=== PATIENT | male | born 1975 | race Caucasian/White ===

== ENCOUNTER 2018-08-08 13:41 | Inpatient (IN) | payer SELFPAY ==
[~2018-08-08] VITALS: Ht 188 cm; Wt 81.6 kg
[2018-08-08] MEDS ORDERED: NS(*) 0.9% 1000 ML BAG 1,000 ML IV ONE (13:43)
--- NOTE | 2018-08-08 13:51 | ER Report ---
History and Physical Time Seen By MD: 13:49 HPI/ROS CHIEF COMPLAINT: Seizure HISTORY OF PRESENT ILLNESS: 43-year-old male patient presents to emergency room via EMS with complaint of seizure. Patient was at the longterm center today. He was incarcerated, he is unsure as to why he was incarcerated. Patient did have a seizure. His initial seizure he fell and struck his head on the ground. That was approximately 2 hours prior to arrival in the emergency room. Patient then suddenly had a second seizure and was caught this time by longterm center personnel. At that time decided the patient was going to be sent up to the emergency room for further evaluation. Patient does have before meals history of seizures when he is detoxing from alcohol. Patient states last time he had any alcohol was May 15. Patient denies having any pain at this time. REVIEW OF SYSTEMS: Respiratory: No cough, no dyspnea. Cardiovascular: No chest pain, no palpitations. Gastrointestinal: No vomiting, no abdominal pain. Musculoskeletal: No back pain. Allergies: Coded Allergies: Penicillins (Verified Allergy, Unknown, 08/08/18) Home Meds No Active Prescriptions or Reported Meds Past Medical/Surgical History Patient has a past medical history of seizures, racing heart, arthritis, back pain, substance abuse, alcohol abuse, Tourette's. Patient has a surgical procedure of LASIK surgery, wisdom teeth removal. Reviewed Nurses Notes: Yes Hx Smoking: Yes Smoking Status: Current: Every Day Smoker, Heavy Tobacco Smoker Exposure to Second Hand Smoke?: Yes Hx Alcohol Use: Yes Constitutional Vital Sign - Last 24 Hours 08/08/18 08/08/18 08/08/18 08/08/18 13:41 13:44 13:55 14:11 Temp 97.6 Pulse 111 105 105 Resp 14 B/P (MAP) 131/89 (103) 131/89 Pulse Ox 91 O2 Delivery Room Air 08/08/18 08/08/18 08/08/18 08/08/18 14:14 14:17 14:37 14:41 Pulse 109 Resp 17 B/P (MAP) 124/81 (95) 124/88 (100) Pulse Ox 96 O2 Delivery Nasal Cannula O2 Flow Rate 1.5 1 08/08/18 08/08/18 08/08/18 08/08/18 14:46 15:00 15:16 15:21 Pulse 109 108 115 Resp 23 13 B/P (MAP) 123/92 (102) Pulse Ox 96 93 91 08/08/18 08/08/18 15:51 16:00 Pulse 115 Resp 14 B/P (MAP) 122/78 (93) Pulse Ox 87 Physical Exam General Appearance: The patient is alert, has no immediate need for airway protection and no current signs of toxicity. Patient does smell of alcohol. Eyes: Pupils equal and round and injection bilaterally. Respiratory: Chest is non tender, lungs are clear to auscultation. Cardiac: regular rate and rhythm Gastrointestinal: Abdomen is soft and non tender, no masses, bowel sounds normal. Musculoskeletal: Neck: Neck non tender, patient is in a c-collar Extremities have full range of motion and are non tender. Skin: No rashes or lesions. Bruise to the left side of chest, and blood noted on his face, bite varela to the left side of his tongue. DIFFERENTIAL DIAGNOSIS: After history and physical exam differential diagnosis was considered for seizure secondary to alcohol detox, alcohol abuse, withdrawal. Medical Decision Making Data Points Result Diagram: 08/08/18 1338 08/08/18 1338 Laboratory Hematology Test 08/08/18 13:38 Red Blood Count 4.18 M/uL (4.00-5.60) Mean Corpuscular Volume 105.7 fL (80.0-96.0) Mean Corpuscular Hemoglobin 36.4 pg (26.0-33.0) Mean Corpuscular Hemoglobin Concent 34.4 g/dL (32.0-36.0) Red Cell Distribution Width 13.0 % (11.5-14.5) Mean Platelet Volume 9.1 fL (7.2-11.1) Neutrophils (%) (Auto) 56.8 % (39.4-72.5) Lymphocytes (%) (Auto) 22.0 % (17.6-49.6) Monocytes (%) (Auto) 19.1 % (4.1-12.4) Eosinophils (%) (Auto) 0.2 % (0.4-6.7) Basophils (%) (Auto) 1.9 % (0.3-1.4) Nucleated RBC Relative Count (auto) 0.0 /100WBC Neutrophils # (Auto) 5.2 K/uL (2.0-7.4) Lymphocytes # (Auto) 2.0 K/uL (1.3-3.6) Monocytes # (Auto) 1.7 K/uL (0.3-1.0) Eosinophils # (Auto) 0.0 K/uL (0.0-0.5) Basophils # (Auto) 0.2 K/uL (0.0-0.1) Nucleated RBC Absolute Count (auto) 0.00 K/uL Prothrombin Time 15.0 seconds (12.0-14.4) Prothromb Time International Ratio 1.17 Activated Partial Thromboplast Time 34 seconds (23-35) Sodium Level 143 mmol/L (137-145) Potassium Level 3.2 mmol/L (3.5-5.0) Chloride Level 98 mmol/L (98-107) Carbon Dioxide Level 10 mmol/L (22-30) Blood Urea Nitrogen 5 mg/dl (9-21) Creatinine 0.60 mg/dl (0.66-1.25) Glomerular Filtration Rate Calc > 60.0 Random Glucose 163 mg/dl (75-110) Calcium Level 9.3 mg/dl (8.4-10.2) Magnesium Level 1.3 mg/dl (1.7-2.2) Total Bilirubin 3.9 mg/dl (0.2-1.3) Aspartate Amino Transf (AST/SGOT) 194 U/L (0-35) Alanine Aminotransferase (ALT/SGPT) 36 U/L (0-56) Alkaline Phosphatase 182 U/L (0-126) Total Protein 8.4 g/dl (6.3-8.2) Albumin 4.9 g/dl (3.5-5.0) Serum Alcohol 64 mg/dl Chemistry Test 08/08/18 13:38 White Blood Count 9.1 k/uL (4.5-11.0) Red Blood Count 4.18 M/uL (4.00-5.60) Hemoglobin 15.2 g/dL (14.0-18.0) Hematocrit 44.2 % (42.0-52.0) Mean Corpuscular Volume 105.7 fL (80.0-96.0) Mean Corpuscular Hemoglobin 36.4 pg (26.0-33.0) Mean Corpuscular Hemoglobin Concent 34.4 g/dL (32.0-36.0) Red Cell Distribution Width 13.0 % (11.5-14.5) Platelet Count 122 K/uL (150-450) Mean Platelet Volume 9.1 fL (7.2-11.1) Neutrophils (%) (Auto) 56.8 % (39.4-72.5) Lymphocytes (%) (Auto) 22.0 % (17.6-49.6) Monocytes (%) (Auto) 19.1 % (4.1-12.4) Eosinophils (%) (Auto) 0.2 % (0.4-6.7) Basophils (%) (Auto) 1.9 % (0.3-1.4) Nucleated RBC Relative Count (auto) 0.0 /100WBC Neutrophils # (Auto) 5.2 K/uL (2.0-7.4) Lymphocytes # (Auto) 2.0 K/uL (1.3-3.6) Monocytes # (Auto) 1.7 K/uL (0.3-1.0) Eosinophils # (Auto) 0.0 K/uL (0.0-0.5) Basophils # (Auto) 0.2 K/uL (0.0-0.1) Nucleated RBC Absolute Count (auto) 0.00 K/uL Prothrombin Time 15.0 seconds (12.0-14.4) Prothromb Time International Ratio 1.17 Activated Partial Thromboplast Time 34 seconds (23-35) Glomerular Filtration Rate Calc > 60.0 Calcium Level 9.3 mg/dl (8.4-10.2) Magnesium Level 1.3 mg/dl (1.7-2.2) Total Bilirubin 3.9 mg/dl (0.2-1.3) Aspartate Amino Transf (AST/SGOT) 194 U/L (0-35) Alanine Aminotransferase (ALT/SGPT) 36 U/L (0-56) Alkaline Phosphatase 182 U/L (0-126) Total Protein 8.4 g/dl (6.3-8.2) Albumin 4.9 g/dl (3.5-5.0) Serum Alcohol 64 mg/dl Coagulation Test 08/08/18 13:38 Prothrombin Time 15.0 seconds Prothromb Time International Ratio 1.17 Activated Partial Thromboplast Time 34 seconds Toxicology Test 08/08/18 13:38 Serum Alcohol 64 mg/dl EKG/Imaging Imaging EXAMINATION: CT chest with IV contrast CT abdomen with IV contrast CT pelvis with IV contrast HISTORY: Fall with bruising. COMPARISON: None. TECHNIQUE: Axial images were taken through the chest, abdomen and pelvis during injection of nonionic iodinated intravenous contrast. Sagittal and coronal reformatted images are also submitted. CONTRAST: See addendum. One of the following dose optimization techniques was utilized in the performance of this exam: Automated exposure control; adjustment of the mA and/or kV according to the patient's size; or use of an iterative reconstruction technique. Specific details can be referenced in the facility's radiology CT exam operational policy. FINDINGS: CT THORAX: Lungs / pleura: No focal consolidation, pleural effusion, or pneumothorax. Mediastinum / andie: Negative. Heart / pericardium: Negative. Vessels: Negative. Musculoskeletal / Body wall: Mild left convex curvature of the upper thoracic spine and mild right convex curvature of the mid to lower thoracic spine. No acute fracture or dislocation of the thoracic spine. Lymph node assessment: Negative. Lower neck: Negative. CT ABDOMEN AND PELVIS: Liver / biliary: Negative. Pancreas: Negative. Spleen: Negative. Adrenal glands: Negative. Kidneys: Negative. Pelvic structures: Negative. Bowel: The bowel is normal caliber without obvious focal wall thickening. The appendix is normal. Peritoneum / retroperitoneum / mesenteries: Small volume of intraperitoneal free fluid in the pelvis and right side of the abdomen. No intraperitoneal free air. Vessels: Minimal calcified plaque of the abdominal aorta. Musculoskeletal / Body wall: Chronic defects in the posterior elements of L5. No acute fracture or dislocation of the lumbar spine. Small fat-containing left inguinal hernia. Lymph node assessment: Negative. IMPRESSION: There is a small volume of intraperitoneal free fluid in the pelvis and right side of the abdomen. This is of uncertain etiology. No acute fracture or dislocation of the thoracic or lumbar spine. Report Dictated By: Rajat Gonzalez MD at 08/08/2018 3:04 PM Report E-Signed By: Rajat Gonzalez MD at 08/08/2018 3:18 PM EXAMINATION: CT Cervical spine without intravenous contrast HISTORY: Seizures. COMPARISON: None. TECHNIQUE: Axial images were obtained from the skull base through the upper thoracic spine without IV contrast administration. Coronal and sagittal reformatted images were obtained from the axial source data. One of the following dose optimization techniques was utilized in the performance of this exam: Automated exposure control; adjustment of the mA and/or kV according to the patient's size; or use of an iterative reconstruction technique. Specific details can be referenced in the facility's radiology CT exam operational policy. FINDINGS: Alignment: Straightening of the cervical spine. Cranio-cervical junction: Negative. Vertebral bodies: No acute fracture. Posterior elements: No acute fracture. Hardware: None. Disc Spaces: Intervertebral disc heights are maintained. Soft tissues: No significant paraspinal soft tissue swelling. Visualized upper chest: Negative. IMPRESSION: No acute fracture of the cervical spine. Report Dictated By: Rajat Gonzalez MD at 08/08/2018 2:58 PM Report E-Signed By: Rajat Gonzalez MD at 08/08/2018 3:04 PM EXAMINATION: Head CT without intravenous contrast HISTORY: Seizure. COMPARISON: None. TECHNIQUE: Contiguous axial images were obtained from the skull base to the vertex without intravenous contrast. Sagittal and coronal reformatted images are also submitted. One of the following dose optimization techniques was utilized in the performance of this exam: Automated exposure control; adjustment of the mA and/or kV according to the patient's size; or use of an iterative reconstruction technique. Specific details can be referenced in the facility's radiology CT exam operational policy. FINDINGS: Brain and intracranial structures: Mild cerebral volume loss with corresponding sulcal prominence. The ventricles are normal in size.. The basal cisterns are patent. Enlarged perivascular space at the inferior aspect of the left lentiform nucleus. Santiago-white matter differentiation is maintained. No midline shift, acute hemorrhage, acute infarct, or mass. Calvarium / scalp: Negative. No acute fracture. Skull base / visualized face: Negative. Visualized sinuses / orbits: Large mucous retention cyst in the right maxillary sinus. Mild mucosal thickening in the ethmoid air cells. IMPRESSION: No acute intracranial abnormality. Report Dictated By: Rajat Gonzalez MD at 08/08/2018 2:48 PM Report E-Signed By: Rajat Gonzalez MD at 08/08/2018 2:58 PM ED Course/Re-evaluation ED Course Patient is admitted to examine, history and physical were obtained. Differential diagnoses were considered. On examination lungs are clear, heart is regular, abdomen is soft nontender. Patient does have obvious bite gentry to the tip of the tongue on the left side. A CBC, CMP, alcohol level, magnesium level were done which was indicative of slightly low magnesium of 1.3, bilirubin was 3.2, AST was 194, MCV was elevated 105. Patient had a blood alcohol of 64. He did have 2 seizures while he was longterm center. A CT scan of the head and cervical spine were done. Those were above the radiologist as negative. May return back from the CT scan we did note that he had a bruise to the left lower chest and upper abdomen. A CT scan of the chest abdomen and pelvis was done which showed no acute findings. I discussed the case with Dr. Fleming, hospitalist discussed with patient. Patient had verbalized to be willing to admit to the hospital for detox. Due to the seizures I felt this would be better for a medical detox as opposed to admission to behavioral health. Slightly that he will likely need IV medications to help control his detox. Patient verbalized understanding and agreement. Patient did get help to get up to go to the bathroom, during that time he became unsteady and fell back, he is currently that time by the nursing staff. Decision to Disposition Date: Aug 08, 2018 Decision to Disposition Time: 16:11 Depart Departure Latest Vital Signs Vital Signs Date Time Temp Pulse Resp B/P (MAP) Pulse Ox O2 Delivery O2 Flow Rate FiO2 08/08/18 16:00 122/78 (93) 08/08/18 15:51 115 14 87 08/08/18 14:41 Nasal Cannula 1 08/08/18 13:55 97.6 Impression: Primary Impression: Alcohol withdrawal Condition: Condition Unchanged Disposition: Admitted from ER New Scripts No Active Prescriptions or Reported Meds Problem Qualifiers Primary Impression: Alcohol withdrawal Complication of substance-induced condition: uncomplicated Qualified Codes: F10.230 - Alcohol dependence with withdrawal, uncomplicated CORNELIUS HERRERA [facility] Aug 08, 2018 13:51
[2018-08-08 14:00] LABS: PLATELET COUNT, AUTOMATED 122 K/uL (150-450)
[2018-08-08] MEDS ORDERED: DIAZEPAM 50 MG/10 ML MDV IVP ONE ×2 (14:00→15:35)
[2018-08-08 14:31] LABS: INR 1.17
[2018-08-08] MEDS ORDERED: IOPAMIDOL 76% 100 ML INFUS BTL 100 ML ONE (14:31)
--- NOTE | 2018-08-08 15:05 | RADIOLOGY IMAGING REPORT ---
FACILITY: [facility] PATIENT NAME: Oscar Thacker : 1975 MR: [id number] V: [id number] EXAM DATE: ORDERING PHYSICIAN: CORNELIUS HERRERA TECHNOLOGIST: Location: [facility] [place] Patient: Oscar Thacker : 1975 Visit/Account:[id number] Date of Sevice: 08/08/2018 EXAMINATION: Head CT without intravenous contrast HISTORY: Seizure. COMPARISON: None. TECHNIQUE: Contiguous axial images were obtained from the skull base to the vertex without intraven ous contrast. Sagittal and coronal reformatted images are also submitted. One of the following dose optimization techniques was utilized in the performance of this exam: Autom ated exposure control; adjustment of the mA and/or kV according to the patient's size; or use of an i terative reconstruction technique. Specific details can be referenced in the facility's radiology C T exam operational policy. FINDINGS: Brain and intracranial structures: Mild cerebral volume loss with corresponding sulcal prominence. T he ventricles are normal in size.. The basal cisterns are patent. Enlarged perivascular space at the inferior aspect of the left lentiform nucleus. Santiago-white matter differentiation is maintained. No midline shift, acute hemorrhage, acute infarct, or mass. Calvarium / scalp: Negative. No acute fracture. Skull base / visualized face: Negative. Visualized sinuses / orbits: Large mucous retention cyst in the right maxillary sinus. Mild mucosal thickening in the ethmoid air cells. IMPRESSION: No acute intracranial abnormality. Report Dictated By: Rajat Gonzalez MD at 08/08/2018 2:48 PM Report E-Signed By: Rajat Gonzalez MD at 08/08/2018 2:58 PM WSN:[id number]
--- NOTE | 2018-08-08 15:09 | RADIOLOGY IMAGING REPORT ---
FACILITY: [facility] [place] PATIENT NAME: Oscar Thacker : 1975 MR: [id number] V: [id number] EXAM DATE: ORDERING PHYSICIAN: CORNELIUS HERRERA TECHNOLOGIST: Location: [facility] [place] Patient: Oscar Thacker : 1975 Visit/Account:[id number] Date of Sevice: 08/08/2018 EXAMINATION: CT Cervical spine without intravenous contrast HISTORY: Seizures. COMPARISON: None. TECHNIQUE: Axial images were obtained from the skull base through the upper thoracic spine without I V contrast administration. Coronal and sagittal reformatted images were obtained from the axial [facility] e data. One of the following dose optimization techniques was utilized in the performance of this exam: Autom ated exposure control; adjustment of the mA and/or kV according to the patient's size; or use of an i terative reconstruction technique. Specific details can be referenced in the facility's radiology C T exam operational policy. FINDINGS: Alignment: Straightening of the cervical spine. Cranio-cervical junction: Negative. Vertebral bodies: No acute fracture. Posterior elements: No acute fracture. Hardware: None. Disc Spaces: Intervertebral disc heights are maintained. Soft tissues: No significant paraspinal soft tissue swelling. Visualized upper chest: Negative. IMPRESSION: No acute fracture of the cervical spine. Report Dictated By: Rajat Gonzalez MD at 08/08/2018 2:58 PM Report E-Signed By: Rajat Gonzalez MD at 08/08/2018 3:04 PM WSN:[id number]
--- NOTE | 2018-08-08 15:23 | RADIOLOGY IMAGING REPORT ---
FACILITY: [facility] - [place] PATIENT NAME: Oscar Thacker : 1975 MR: [id number] V: [id number] EXAM DATE: ORDERING PHYSICIAN: CORNELIUS HERRERA TECHNOLOGIST: Location: [facility] Patient: Oscar Thacker : 1975 Visit/Account:[id number] Date of Sevice: 08/08/2018 ADDENDUM #1 ADDENDUM: CONTRAST: 75 mL of IV [id number] Report Dictated By: Rajat Gonzalez MD at 08/08/2018 3:28 PM Report E-Signed By: Rajat Gonzalez MD at 08/08/2018 3:28 PM ORIGINAL REPORT EXAMINATION: CT chest with IV contrast CT abdomen with IV contrast CT pelvis with IV contrast HISTORY: Fall with bruising. COMPARISON: None. TECHNIQUE: Axial images were taken through the chest, abdomen and pelvis during injection of nonion ic iodinated intravenous contrast. Sagittal and coronal reformatted images are also submitted. CONTRAST: See addendum. One of the following dose optimization techniques was utilized in the performance of this exam: Autom ated exposure control; adjustment of the mA and/or kV according to the patient's size; or use of an i terative reconstruction technique. Specific details can be referenced in the facility's radiology C T exam operational policy. FINDINGS: CT THORAX: Lungs / pleura: No focal consolidation, pleural effusion, or pneumothorax. Mediastinum / andie: Negative. Heart / pericardium: Negative. Vessels: Negative. Musculoskeletal / Body wall: Mild left convex curvature of the upper thoracic spine and mild right c onvex curvature of the mid to lower thoracic spine. No acute fracture or dislocation of the thoracic spine. Lymph node assessment: Negative. Lower neck: Negative. CT ABDOMEN AND PELVIS: Liver / biliary: Negative. Pancreas: Negative. Spleen: Negative. Adrenal glands: Negative. Kidneys: Negative. Pelvic structures: Negative. Bowel: The bowel is normal caliber without obvious focal wall thickening. The appendix is normal. Peritoneum / retroperitoneum / mesenteries: Small volume of intraperitoneal free fluid in the pelvis and right side of the abdomen. No intraperitoneal free air. Vessels: Minimal calcified plaque of the abdominal aorta. Musculoskeletal / Body wall: Chronic defects in the posterior elements of L5. No acute fracture or di slocation of the lumbar spine. Small fat-containing left inguinal hernia. Lymph node assessment: Negative. IMPRESSION: There is a small volume of intraperitoneal free fluid in the pelvis and right side of the abdomen. Th is is of uncertain etiology. No acute fracture or dislocation of the thoracic or lumbar spine. Report Dictated By: Rajat Gonzalez MD at 08/08/2018 3:04 PM Report E-Signed By: Rajat Gonzalez MD at 08/08/2018 3:18 PM WSN:[id number]
[2018-08-08] MEDS ORDERED: ONDANSETRON 4 MG/2 ML VIAL IVP ONE (15:25)
[2018-08-08] MEDS ORDERED: NAPROXEN 500 MG TAB PO PRN (15:55)
[2018-08-08] MEDS ORDERED: INFLUENZA VIRUS VAC 0.5ML SYR IM ONLY ONE (15:55)
[2018-08-08] MEDS ORDERED: CALCIUM CARBONATE 500 MG CHEW PO PRN (15:55)
[2018-08-08] MEDS ORDERED: LORazepam 2 MG/ML VIAL IVP PRN (15:55)
--- NOTE | 2018-08-08 16:28 | History & Physical ---
History of Present Illness History of Present Illness 43yo male with a h/o alcohol abuse and alcohol withdrawal seizures who [facility] after 2 seizures. The history is from the ER provider and some from the patient, but his memory is limited. He doesn't know when his last drink occurred or why he was in the prison center. He had a seizure, fell and hit his head 2 hours prior to going to the ER. He then had another seizure but was caught by staff. He brought to the ER. He reports drinking half a bottle of vodka a day. He has been drinking since May. He was sober from the Fall of 2017 until then. He denies any other drug use. He reports a seizure about a week ago when he was trying to cut back on drinking. In the ER, he received 1 liter of NS, 15mg of Valium IV, and Zofran. History Problems: (1) Alcohol related seizure Status: Acute (2) Alcohol abuse Status: Acute Home Meds No Active Prescriptions or Reported Meds Allergies: Coded Allergies: Penicillins (Verified Allergy, Unknown, 08/08/18) Patient History: FHx: alcoholism FATHER BROTHER OR SISTER History of Sotero de la Tourette's syndrome BROTHER OR SISTER Other Social/Family Hx He denies illicit drug use. He smokes a pack a day for 4-5 years. Hx Smoking: Yes Smoking Status: Current: Every Day Smoker, Heavy Tobacco Smoker Exposure to Second Hand Smoke?: Yes Caffeine/Cups Per Day: Reports no caffeine use Hx Alcohol Use: Yes Hx Substance Use Disorder: Yes Social Drug Use: Former Social Drugs: Marijuana, Meth, Cocaine Amount Of Social Drug/s Used: Any time he could Review of Systems All Systems Reviewed/Normal: Yes, Except as Noted Exam Vital Signs Vital Signs Date Time Temp Pulse Resp B/P (MAP) Pulse Ox O2 Delivery O2 Flow Rate FiO2 08/08/18 15:16 108 93 08/08/18 15:00 123/92 (102) 08/08/18 14:46 23 08/08/18 14:41 Nasal Cannula 1 08/08/18 13:55 97.6 General Appearance: Alert, Awake, Other (Tremulous, anxious appearing. No injuries to scalp/head on exam and palpation) Neuro: Other (Knows where he is, but not the details of why) ENT: Moist Mucous Membranes (Tongue with abrasions bilaterally on edges. R buccal mucous membrane with evidence of small injury) Cardiovascular: Other (Tachy, reg, no m/r/g) Respiratory: Clear to Auscultation GI: Abd Soft and Non-Tender (Liver edge about 3 cm below costal chondral margin on mid clavicular line) Extremities: Warm, Pulses; No Edema Integumentary: No Jaundice, No Cyanosis Medical Decision Making Data Points Result Diagram: 08/08/18 1338 08/08/18 1338 Item Value Date Time Mean Corpuscular Volume 105.7 fL H 08/08/18 1338 Neutrophils (%) (Auto) 56.8 % 08/08/18 1338 Lymphocytes (%) (Auto) 22.0 % 08/08/18 1338 Monocytes (%) (Auto) 19.1 % H 08/08/18 1338 Eosinophils (%) (Auto) 0.2 % L 08/08/18 1338 Basophils (%) (Auto) 1.9 % H 08/08/18 1338 Magnesium Level 1.3 mg/dl L 08/08/18 1338 Total Bilirubin 3.9 mg/dl H 08/08/18 1338 Aspartate Amino Transf (AST/SGOT) 194 U/L H 08/08/18 1338 Alanine Aminotransferase (ALT/SGPT) 36 U/L 08/08/18 1338 Alkaline Phosphatase 182 U/L H 08/08/18 1338 Prothromb Time International Ratio 1.17 08/08/18 1338 Serum Alcohol 64 mg/dl 08/08/18 1338 EKG / Imaging Imaging Chest/Abd/Pelvis CT - There is a small volume of intraperitoneal free fluid in the pelvis and right side of the abdomen. This is of uncertain etiology. No acute fracture or dislocation of the thoracic or lumbar spine. C spine CT - No acute fracture of the cervical spine. Head CT - No acute intracranial abnormality. Assessment and Plan Problems: (1) Alcohol withdrawal Status: Acute Assessment & Plan: He presented to the ER after 2 seizure at the prison center. It is unknown when he consumed his last drink of alcohol. LFT's are elevated. INR is wnl. MCV elevated. He will followed with CIWA protocol and given Valium to cover. He will get a banana bag and then be started on thiamine and folate. Seizure precautions to be implemented. Ammonia level tomorrow. (2) Alcohol related seizure Status: Acute Assessment & Plan: See above. He has had alcohol related seizures in the past. He had one while trying to cut back a week ago. CT's of head and neck without obvious injury. No worrisome symptoms or on exam. (3) Hypokalemia Status: Acute Assessment & Plan: Secondary to alcohol use. It will be replaced IV. Mg wnl, but will follow. Venous Thromboembolism Antithrombotics Is Pt On Any Antithrombotics?: No Exam Sepsis Risk: No Definite Risk Problem Qualifiers (1) Alcohol withdrawal: Complication of substance-induced condition: uncomplicated Qualified Codes: F10.230 - Alcohol dependence with withdrawal, uncomplicated SUNDEEP HONG MD Aug 08, 2018 16:28
[2018-08-08 16:47] VITALS: BP 124/88
[2018-08-08] MEDS: DIAZEPAM 10 MG TAB PO PRN ×6 (16:53→23:07)
[2018-08-08] MEDS: KCL (*) 20 MEQ/100 ML PREMIX 100 ML IV SCH ×2 (16:54→18:59)
[2018-08-08] MEDS ORDERED: THIAMINE HCL(*) 200 MG/2 ML IN 100 MG, FOLIC ACID(*) 50 MG/10 ML INJ 1 MG, MULTIVITAMIN... IV ONE (17:00)
[2018-08-08 20:04] VITALS: BP 114/75
[2018-08-08 23:50] VITALS: BP 107/63
[2018-08-09] MEDS: DIAZEPAM 10 MG TAB PO PRN ×19 (00:06→22:55)
[2018-08-09 04:12] VITALS: BP 125/83
[2018-08-09] MEDS: KCL/D1/2NS 20 MEQ 1000 ML 1,000 ML IV SCH (04:22)
[2018-08-09 06:27] LABS: PLATELET COUNT, AUTOMATED 74 K/uL (150-450)
[2018-08-09 07:16] VITALS: BP 128/87
[2018-08-09] MEDS ORDERED: MAGNESIUM SULF 4 GM/50 ML BAG 50 ML IVPB ONE (08:00)
[2018-08-09 08:30] VITALS: BP 125/85
[2018-08-09] MEDS ORDERED: NS(*) 0.9% 500 ML BAG 500 ML ONE (08:58)
[2018-08-09] MEDS: THIAMINE HCL 100 MG TAB PO SCH (09:02)
[2018-08-09] MEDS: PANTOPRAZOLE SOD 40 MG TABEC PO SCH (09:02)
[2018-08-09] MEDS: FOLIC ACID 1 MG TAB PO SCH (09:03)
[2018-08-09] MEDS: ENOXAPARIN 40 MG/0.4ML SYR SC SCH (09:03)
--- NOTE | 2018-08-09 10:58 | Hospitalist Progress Note ---
Subjective Progress Notes Subjective He was admitted with alcohol withdraw and seizures. He is only oriented to self. Physical Exam Vital Signs Date Time Temp Pulse Resp B/P (MAP) Pulse Ox O2 Delivery O2 Flow Rate FiO2 08/09/18 09:05 90 08/09/18 08:30 98.0 93 20 125/85 (98) Room Air 08/08/18 14:41 1 Intake and Output 08/09/18 01:01 Intake Total 600 ml Balance 600 ml Intake Oral 600 ml # Voids 2 General Appearance: Awake Neuro: Other (unable to ambulate to commode) Cardiovascular: Regular Rate and Rhythm Respiratory: No Respiratory Distress, Clear to Auscultation Psych: Other (oriented to only self) Result Diagram: 08/09/1860708/09/18607 Assessment and Plan Problems: (1) Alcohol withdrawal Status: Acute Assessment & Plan: He presented to the ER after [facility] seizure [facility]. It is unknown when he consumed his last drink of alcohol. LFT's are elevated. INR is wnl. MCV elevated. He will followed with CIWA protocol and given Valium to cover. He received a banana bag and then was started on thiamine and folate. Seizure precautions implemented. Ammonia level WNL. (2) Alcohol related seizure Status: Acute Assessment & Plan: See above. He has had alcohol related seizures in the past. He had one while trying to cut back a week ago. CT's of head and neck without obvious injury. No worrisome symptoms or on exam. (3) Hypokalemia Status: Acute Assessment & Plan: Secondary to alcohol use. It will be replaced IV. (4) Hypomagnesemia Status: Acute Assessment & Plan: Secondary to alcohol use. He will receive IV replacement. Exam Sepsis Risk: No Definite Risk Problem Qualifiers (1) Alcohol withdrawal: Complication of substance-induced condition: uncomplicated Qualified Codes: F10.230 - Alcohol dependence with withdrawal, uncomplicated SANTI EDWARD UMBRELLA FINISHER Aug 09, 2018 10:58
[2018-08-09] MEDS: KCL (*) 20 MEQ/100 ML PREMIX 100 ML IV SCH ×2 (11:07→13:44)
[2018-08-09 11:29] VITALS: Ht 188 cm; Wt 81.6 kg
[2018-08-09 12:14] VITALS: BP 122/95
[2018-08-09 13:42] VITALS: BP 136/105
[2018-08-09 18:37] VITALS: BP 104/80
[2018-08-10] VITALS (8 sets, daily range): BP systolic 106–130; BP diastolic 83–97
[2018-08-10] MEDS: DIAZEPAM 10 MG TAB PO PRN ×10 (00:16→21:54)
[2018-08-10] MEDS: KCL/D1/2NS 20 MEQ 1000 ML 1,000 ML IV SCH ×2 (00:20→14:47)
[2018-08-10 05:45] LABS: PLATELET COUNT, AUTOMATED 73 K/uL (150-450)
[2018-08-10] MEDS: PANTOPRAZOLE SOD 40 MG TABEC PO SCH (09:55)
[2018-08-10] MEDS: ENOXAPARIN 40 MG/0.4ML SYR SC SCH (09:55)
[2018-08-10] MEDS: THIAMINE HCL 100 MG TAB PO SCH (09:55)
[2018-08-10] MEDS: FOLIC ACID 1 MG TAB PO SCH (09:55)
--- NOTE | 2018-08-10 12:11 | Hospitalist Progress Note ---
Subjective Progress Notes Subjective He was admitted with alcohol withdraw. He is still actively withdrawing requiring Valium. He is oriented to only himself again this morning. Physical Exam Vital Signs Date Time Temp Pulse Resp B/P (MAP) Pulse Ox O2 Delivery O2 Flow Rate FiO2 08/10/18 11:39 97.8 93 16 106/86 (93) 96 Room Air 08/08/18 14:41 1 Intake and Output 08/10/18 01:01 Intake Total 150 ml Balance 150 ml IV Total 150 ml # Voids 6 General Appearance: Other (resting with eyes shut) Cardiovascular: Regular Rate and Rhythm Respiratory: No Respiratory Distress, Clear to Auscultation GI: Soft and Non-Tender Extremities: Warm, Perfused; No Edema Psych: Other (mumbling throughout exam) Result Diagram: 08/10/1853008/10/18530 Assessment and Plan Problems: (1) Alcohol withdrawal Status: Acute Assessment & Plan: He presented to the ER [facility] It is unknown when he consumed his last drink of alcohol. LFT's are elevated. INR is wnl. MCV elevated. He will followed with CIWA protocol and given Valium to cover. He received a banana bag and then was started on thiamine and folate. Seizure precautions implemented. Ammonia level WNL. (2) Alcohol related seizure Status: Acute Assessment & Plan: See above. He has had alcohol related seizures in the past. He had one while trying to cut back a week ago. CT's of head and neck without obvious injury. No worrisome symptoms or on exam. (3) Hypokalemia Status: Acute Assessment & Plan: Secondary to alcohol use. It was replaced IV. (4) Hypomagnesemia Status: Acute Assessment & Plan: Secondary to alcohol use. He received IV replacement. Exam Sepsis Risk: No Definite Risk Problem Qualifiers (1) Alcohol withdrawal: Complication of substance-induced condition: uncomplicated Qualified Codes: F10.230 - Alcohol dependence with withdrawal, uncomplicated SANTI EDWARD JAVA DEVELOPER Aug 10, 2018 12:11
[2018-08-11] VITALS (10 sets, daily range): BP systolic 102–127; BP diastolic 73–101
[2018-08-11] MEDS: DIAZEPAM 10 MG TAB PO PRN ×12 (02:16→18:53)
[2018-08-11] MEDS: KCL/D1/2NS 20 MEQ 1000 ML 1,000 ML IV SCH ×2 (04:21→20:13)
[2018-08-11 06:59] LABS: PLATELET COUNT, AUTOMATED 80 K/uL (150-450)
[2018-08-11] MEDS: FOLIC ACID 1 MG TAB PO SCH (08:23)
[2018-08-11] MEDS: THIAMINE HCL 100 MG TAB PO SCH (08:23)
[2018-08-11] MEDS: PANTOPRAZOLE SOD 40 MG TABEC PO SCH (08:23)
[2018-08-11] MEDS ORDERED: MAGNESIUM SUL* 2 GM/50 ML IVPB 50 ML IVPB ONE (09:30)
[2018-08-11] MEDS: ENOXAPARIN 40 MG/0.4ML SYR SC SCH (10:07)
--- NOTE | 2018-08-11 11:28 | Hospitalist Progress Note ---
Subjective Progress Notes Subjective He was admitted with alcohol withdraw. He is still only oriented to self. Physical Exam Vital Signs Date Time Temp Pulse Resp B/P (MAP) Pulse Ox O2 Delivery O2 Flow Rate FiO2 08/11/18 11:03 97.9 102 16 102/73 (83) 94 Room Air 08/08/18 14:41 1 Intake and Output 08/11/18 07:01 Intake Total 1075 ml Balance 1075 ml IV Total 1075 ml # Voids 11 General Appearance: Awake Cardiovascular: Regular Rate and Rhythm Respiratory: No Respiratory Distress, Clear to Auscultation Extremities: Warm, Perfused; No Edema Psych: Other (oriented to self) Result Diagram: 08/11/18 0550 08/11/18 0550 Assessment and Plan Problems: (1) Alcohol withdrawal Status: Acute Assessment & Plan: [facility] It is unknown when he consumed his last drink of alcohol. LFT's are elevated. INR is wnl. MCV elevated. He will followed with CIWA protocol and given Valium to cover. He received a banana bag and then was started on thiamine and folate. Seizure precautions implemented. Ammonia level WNL. Bili continued to increase. Will continue to monitor. (2) Alcohol related seizure Status: Acute Assessment & Plan: See above. He has had alcohol related seizures in the past. He had one while trying to cut back a week ago. CT's of head and neck without obvious injury. No worrisome symptoms or on exam. (3) Hypokalemia Status: Acute Assessment & Plan: Secondary to alcohol use. It was replaced IV. (4) Hypomagnesemia Status: Acute Assessment & Plan: Secondary to alcohol use. He received IV replacement. Exam Sepsis Risk: No Definite Risk Problem Qualifiers (1) Alcohol withdrawal: Complication of substance-induced condition: uncomplicated Qualified Codes: F10.230 - Alcohol dependence with withdrawal, uncomplicated SANTI EDWARD AED TRAINER Aug 11, 2018 11:28
[2018-08-11] MEDS: NICOTINE INH SYSTEM 10 MG/INH INH PRN ×2 (17:41→18:34)
[2018-08-12] VITALS (7 sets, daily range): BP systolic 104–117; BP diastolic 60–89
[2018-08-12] MEDS: DIAZEPAM 10 MG TAB PO PRN ×2 (02:46→10:45)
[2018-08-12] MEDS ORDERED: ESOM40CA42 PO (03:22)
[2018-08-12] MEDS ORDERED: FLUO-177 PO (03:22)
[2018-08-12] MEDS ORDERED: OXCA300T59 PO (03:22)
[2018-08-12] MEDS ORDERED: DIAZ-311 PO (03:22)
[2018-08-12] MEDS ORDERED: LAMO100T5 PO (03:22)
[2018-08-12] MEDS ORDERED: BACL-51 PO (03:22)
[2018-08-12 05:30] LABS: PLATELET COUNT, AUTOMATED 112 K/uL (150-450)
[2018-08-12 05:49] LABS: INR 1.1
[2018-08-12] MEDS: PANTOPRAZOLE SOD 40 MG TABEC PO SCH (09:02)
[2018-08-12] MEDS: FOLIC ACID 1 MG TAB PO SCH (09:02)
[2018-08-12] MEDS: ENOXAPARIN 40 MG/0.4ML SYR SC SCH (09:02)
[2018-08-12] MEDS: THIAMINE HCL 100 MG TAB PO SCH (09:02)
[2018-08-12] MEDS: NICOTINE INH SYSTEM 10 MG/INH INH PRN (10:36)
[2018-08-12] MEDS: KCL/D1/2NS 20 MEQ 1000 ML 1,000 ML IV SCH (11:37)
[2018-08-12] MEDS ORDERED: MAGNESIUM SUL* 2 GM/50 ML IVPB 50 ML IVPB ONE (13:10)
--- NOTE | 2018-08-12 17:18 | Hospitalist Progress Note ---
Subjective Progress Notes Subjective The patient denies new complaints. Physical Exam Vital Signs Date Time Temp Pulse Resp B/P (MAP) Pulse Ox O2 Delivery O2 Flow Rate FiO2 08/12/18 16:32 97.7 92 14 110/78 (89) 96 Room Air 08/08/18 14:41 1 Intake and Output 08/12/18 07:01 Intake Total 1330 ml Output Total 1075 ml Balance 255 ml Intake Oral 280 ml IV Total 1050 ml Output Urine Total 1050 ml Post Void Residual 25 ml Bladder Scan Volume Amount 11-30 ml # Voids 2 General Appearance: Alert, Awake, No Acute Distress Neuro: Other (A bit confused at times.) Eyes: PERRLA Cardiovascular: Regular Rate and Rhythm Respiratory: Clear to Auscultation GI: Soft and Non-Tender Extremities: Warm, Perfused Psych: Other (Confused at times.) Result Diagram: 08/12/1851708/12/18517 Assessment and Plan Problems: (1) Alcohol withdrawal Status: Acute Assessment & Plan: He presented to the ER after 2 seizure at the [facility]. It is unknown when he consumed his last drink of alcohol. LFT's are elevated but improving. INR is wnl. MCV elevated. He will followed with CIWA protocol and given Valium to cover. He received a banana bag and then was started on thiamine and folate. Seizure precautions implemented. Ammonia level WNL. Bili starting to decrease. Will continue to monitor. (2) Alcohol related seizure Status: Acute Assessment & Plan: See above. He has had alcohol related seizures in the past. He had one while trying to cut back a week ago. CT's of head and neck without obvious injury. No worrisome symptoms or on exam. (3) Hypokalemia Status: Acute Assessment & Plan: Secondary to alcohol use. Replace as needed. (4) Hypomagnesemia Status: Acute Assessment & Plan: Secondary to alcohol use. Replace as needed. Time Spent on Plan of Care: < 30 min Exam Sepsis Risk: No Definite Risk Problem Qualifiers (1) Alcohol withdrawal: Complication of substance-induced condition: uncomplicated Qualified Codes: F10.230 - Alcohol dependence with withdrawal, uncomplicated BEHZAD MICHELLE MD Aug 12, 2018 17:18
[2018-08-13] MEDS: KCL/D1/2NS 20 MEQ 1000 ML 1,000 ML IV SCH ×2 (00:56→19:38)
[2018-08-13 05:55] LABS: PLATELET COUNT, AUTOMATED 144 K/uL (150-450)
[2018-08-13 07:50] VITALS: BP 113/83
[2018-08-13] MEDS: DIAZEPAM 10 MG TAB PO PRN ×2 (08:29→21:07)
[2018-08-13] MEDS: ENOXAPARIN 40 MG/0.4ML SYR SC SCH (08:29)
[2018-08-13] MEDS: FOLIC ACID 1 MG TAB PO SCH (08:29)
[2018-08-13] MEDS: THIAMINE HCL 100 MG TAB PO SCH (08:29)
[2018-08-13] MEDS: PANTOPRAZOLE SOD 40 MG TABEC PO SCH (08:29)
[2018-08-13] MEDS ORDERED: MAGNESIUM SUL* 2 GM/50 ML IVPB 50 ML IVPB ONE (10:30)
[2018-08-13 12:05] VITALS: BP 96/60
--- NOTE | 2018-08-13 15:41 | Hospitalist Progress Note ---
Subjective Progress Notes Subjective JACKIE overnight, still scoring on CIWA to need medications. Patient Complains of: Respiratory: No: Cough Gastrointestinal: No Nausea, No Vomiting Physical Exam Vital Signs Date Time Temp Pulse Resp B/P (MAP) Pulse Ox O2 Delivery O2 Flow Rate FiO2 08/13/18 12:05 98.0 92 16 96/60 (72) 95 Room Air Intake and Output 08/13/18 07:02 Intake Total 3595 ml Output Total 1170 ml Balance 2425 ml Intake Oral 1570 ml IV Total 2025 ml Output Urine Total 1170 ml Bladder Scan Volume Amount 11-30 ml # Voids 1 General Appearance: Awake, No Acute Distress Neuro: No Gross deficits Cardiovascular: Normal Rhythm & Peripheral Pulses Respiratory: No Respiratory Distress Integumentary: Skin Intact without Lesion / Mass Psych: Other (slowed mentation (Rx vs previous TBI)) Result Diagram: 08/13/1853608/13/18536 Assessment and Plan Problems: (1) Alcohol withdrawal Status: Acute Assessment & Plan: He presented to the ER after 2 [facility]. It is unknown when he consumed his last drink of alcohol. LFT's are elevated but improving. INR is wnl. MCV elevated. He will followed with CIWA protocol and given Valium to cover. He received a banana bag and then was started on thiamine and folate. Seizure precautions implemented. Ammonia level WNL. Bili starting to decrease. Will continue to monitor, discussed with S. (2) Alcohol related seizure Status: Acute Assessment & Plan: See above. He has had alcohol related seizures in the past. He had one while trying to cut back a week ago. CT's of head and neck without obvious injury. No worrisome symptoms or on exam. (3) Hypokalemia Status: Acute Assessment & Plan: Secondary to alcohol use. Replace as needed. (4) Hypomagnesemia Status: Acute Assessment & Plan: Secondary to alcohol use. Replace as needed. Exam Sepsis Risk: No Definite Risk Problem Qualifiers (1) Alcohol withdrawal: Complication of substance-induced condition: uncomplicated Qualified Codes: F10.230 - Alcohol dependence with withdrawal, uncomplicated TRAMAINE RIOS DO Aug 13, 2018 15:41
[2018-08-13 15:56] VITALS: BP 123/72
[2018-08-13 19:28] VITALS: BP 113/81
[2018-08-13 22:00] VITALS: BP 113/80
[2018-08-14 05:00] VITALS: BP 107/74
[2018-08-14 07:25] VITALS: BP 100/66
[2018-08-14] MEDS: PANTOPRAZOLE SOD 40 MG TABEC PO SCH (08:21)
[2018-08-14] MEDS: FOLIC ACID 1 MG TAB PO SCH (08:21)
[2018-08-14] MEDS: THIAMINE HCL 100 MG TAB PO SCH (08:21)
[2018-08-14] MEDS: ENOXAPARIN 40 MG/0.4ML SYR SC SCH (08:22)
--- NOTE | 2018-08-14 10:40 | Hospitalist Progress Note ---
Subjective Progress Notes Subjective He was admitted with alcohol withdraw. He had no acute events overnight. Patient Complains of: Cardiovascular: No: Chest Pain Respiratory: No: Shortness of Breath Physical Exam Vital Signs Date Time Temp Pulse Resp B/P (MAP) Pulse Ox O2 Delivery O2 Flow Rate FiO2 08/14/18 10:05 96 Room Air 08/14/18 07:25 98.1 103 16 100/66 (77) Intake and Output 08/14/18 01:02 Intake Total 500 ml Output Total 300 ml Balance 200 ml Intake Oral 500 ml Output Urine Total 300 ml Bladder Scan Volume Amount 11-30 ml # Voids 4 # Bowel Movements 1 General Appearance: Alert, Awake, No Acute Distress, Afebrile Neuro: Other (weakness ntoed to bilateral lower extremities) Cardiovascular: Regular Rate and Rhythm Respiratory: No Respiratory Distress, Clear to Auscultation Extremities: Warm, Perfused; No Edema Integumentary: Jaundice Psych: Alert & Oriented X3, Appropriate Mood & Affect Result Diagram: 08/13/1837 08/14/18 0531 Assessment and Plan Problems: (1) Alcohol withdrawal Status: Acute Assessment & Plan: [facility] It is unknown when he consumed his last drink of alcohol. LFT's are elevated but improving. INR is wnl. MCV elevated. He will be followed with CIWA protocol and given Valium to cover. He received a banana bag and then was started on thiamine and folate. Seizure precautions implemented. Ammonia level WNL. Bili starting to decrease. Will continue to monitor, discussed with S. (2) Alcohol related seizure Status: Acute Assessment & Plan: See above. He has had alcohol related seizures in the past. He had one while trying to cut back a week ago. CT's of head and neck without obvious injury. No worrisome symptoms or on exam. (3) Hypokalemia Status: Acute Assessment & Plan: Secondary to alcohol use. Replace as needed. (4) Hypomagnesemia Status: Acute Assessment & Plan: Secondary to alcohol use. Replace as needed. Exam Sepsis Risk: No Definite Risk Problem Qualifiers (1) Alcohol withdrawal: Complication of substance-induced condition: uncomplicated Qualified Codes: F10.230 - Alcohol dependence with withdrawal, uncomplicated SANTI EDWARD [facility] Aug 14, 2018 10:40
[2018-08-14 12:19] VITALS: BP 99/71
--- NOTE | 2018-08-14 15:16 | Medical Nutrition Therapy ---
Nutrition Anthropometrics Height (Inches): 74.00 Height (Calculated Centimeters: 187.472337 Weight (Pounds): 180 Weight (Calculated Kilograms): 81.647 BMI: 23.1 Wesley Nutrition Score: Probably Inadequate Wesley Nutrition Risk Score: 14 Dietary Referral Nutrition Risk Factors: Nutrition Risk Comment: Nutritional Diagnosis Nutritional Risk Acuity 2: Pr Appetite > 3d Nutritional Risk Acuity 3: Alcohol abuse Past Medical History: Denies any medical hx however has hx of alcohol abuse. Nutritional Acuity: 3-Mild Nutrition Diagnosis: Inadequate Food Intake Nutrition Etiology: Psychological Issues Nutrition Problem/Etiology/Sym: AEB intake averaging 25% /5 days with many refused meals. Energy Requirement: 2300 (MSJ) Additional Diet Restrictions: OFFER NUTR SUPPLMENT Nutrition Monitoring & Eval Nutrition Goals: Eat 75-100% Meal Nutrition Follow-Up: Poor Intake RD Patient Assessment Time: [address] Assessment Type: RD Assessment Patient Nutrition Acuity: 2-Moderate Follow Up Date: Aug 19, 2018 Nutritional Comment: 08/14 Pt admitted with alcohol detox and seizures Intake averge 25% past 5 days with many refused meals. Pt has jaundice and elevated bilirubin which can have side affect of appetite. Will offer nutr supplement to encourage intake. hallie frederick to monitor. SATISH AHMADI Aug 14, 2018 15:15
[2018-08-14 16:05] VITALS: BP 101/83
[2018-08-14 21:13] VITALS: BP 102/64
[2018-08-14 23:24] VITALS: BP 92/59
[2018-08-15 03:21] VITALS: BP 130/90
[2018-08-15 07:03] VITALS: BP 111/94
[2018-08-15] MEDS: NICOTINE INH SYSTEM 10 MG/INH INH PRN (07:15)
[2018-08-15 08:43] LABS: PLATELET COUNT, AUTOMATED 210 K/uL (150-450)
[2018-08-15] MEDS: FOLIC ACID 1 MG TAB PO SCH (08:51)
[2018-08-15] MEDS: PANTOPRAZOLE SOD 40 MG TABEC PO SCH (08:51)
[2018-08-15] MEDS: THIAMINE HCL 100 MG TAB PO SCH (08:51)
[2018-08-15] MEDS: ENOXAPARIN 40 MG/0.4ML SYR SC SCH (08:52)
[2018-08-15] MEDS ORDERED: HYPROMELLOSE 0.4% LUB 15ML BTL OU PRN (10:20)
--- NOTE | 2018-08-15 11:38 | Hospitalist Progress Note ---
Subjective Progress Notes Subjective Nursing staff reports improvement in withdraw symptoms. However, there are concerns about his weakness to the left side of his body. Patient Complains of: Cardiovascular: No: Chest Pain Respiratory: No: Shortness of Breath Physical Exam Vital Signs Date Time Temp Pulse Resp B/P (MAP) Pulse Ox O2 Delivery O2 Flow Rate FiO2 08/15/18 07:49 93 08/15/18 07:23 93 Room Air 08/15/18 07:03 98.2 20 111/94 (100) Intake and Output 08/15/18 01:02 Intake Total 300 ml Output Total 950 ml Balance -650 ml Intake Oral 300 ml Output Urine Total 950 ml # Voids 4 General Appearance: Alert, Awake, No Acute Distress, Afebrile Neuro: Other (bilateral weakness to upper and lower extremities) Cardiovascular: Regular Rate and Rhythm Respiratory: No Respiratory Distress, Clear to Auscultation GI: Soft and Non-Tender Extremities: Warm, Perfused; No Edema Psych: Appropriate Mood & Affect Result Diagram: 08/15/1834 08/15/1834 Assessment and Plan Problems: (1) Weakness Status: Acute Assessment & Plan: He has been working with therapy. He does have left leg weakness, which is causing difficulty with ambulation. He will get MRI of his brain today. (2) Alcohol withdrawal Status: Acute Assessment & Plan: He presented to the ER after 2 seizure at the [facility]. It is unknown when he consumed his last drink of alcohol. LFT's are elevated but improving. INR is wnl. MCV elevated. He will be followed with CIWA protocol and given Valium to cover. He received a banana bag and then was started on thiamine and folate. Seizure precautions implemented. Ammonia level WNL. Bili starting to decrease. Will continue to monitor, discussed with S. He denies any help for alcohol cessation at this time. He also will get speech evaluation to assess mental status. (3) Alcohol related seizure Status: Acute Assessment & Plan: See above. He has had alcohol related seizures in the past. He had one while trying to cut back a week ago. CT's of head and neck without obvious injury. No worrisome symptoms or on exam. (4) Hypokalemia Status: Acute Assessment & Plan: Secondary to alcohol use. Replace as needed. (5) Hypomagnesemia Status: Acute Assessment & Plan: Secondary to alcohol use. Replace as needed. Exam Sepsis Risk: No Definite Risk Problem Qualifiers (1) Alcohol withdrawal: Complication of substance-induced condition: uncomplicated Qualified Codes: F10.230 - Alcohol dependence with withdrawal, uncomplicated SANTI EDWARDP Aug 15, 2018 11:38
--- NOTE | 2018-08-15 15:29 | RADIOLOGY IMAGING REPORT ---
FACILITY: [facility] PATIENT NAME: Oscar Thacker : 1975 MR: [id number] V: [id number] EXAM DATE: ORDERING PHYSICIAN: SANTI EDWARD TECHNOLOGIST: Location: [facility] Patient: Oscar Thacker : 1975 Visit/Account:[id number] Date of Sevice: 08/15/2018 Exam type: ORBITS History: Pre-MRI screening Comparison: None. Findings: No radiopaque metallic foreign bodies project over the orbits IMPRESSION: 1. No radiopaque metallic foreign bodies project over the orbits Report Dictated By: Lucero Verdin MD at 08/15/2018 3:21 PM Report E-Signed By: Lucero Verdin MD at 08/15/2018 3:22 PM [id number]:[email or web address]
--- NOTE | 2018-08-15 16:30 | RADIOLOGY IMAGING REPORT ---
[place] [facility] NAME: Oscar Thacker : 1975 MR: [id number] V: [id number] EXAM DATE: ORDERING PHYSICIAN: SANTI EDWARD TECHNOLOGIST: Location: [facility] Patient: Oscar Thacker : 1975 Visit/Account:[id number] Date of Sevice: 08/15/2018 Examination: MR brain without contrast History: Altered mental status, alcohol withdrawal, seizure Comparison: August 08, [address] Technique: Multiplane MR imaging was performed through the brain without contrast. Findings: Diffusion: None Ventricles: Normal Midline shift: None Extraaxial fluid: None. Midline craniocervical structures: Normal Parenchyma: Benign perivascular space in the left basal ganglia measures 1.3 cm. Mild parenchymal atr ophy. A few scattered punctate white matter high signal foci. Vascular flow voids: Normal Orbits and paranasal sinuses: Right maxillary sinus 2.8 cm mucous retention cyst. Other: No significant additional finding. Impression: 1. No acute finding. 2. Mild parenchymal atrophy. 3. A few punctate white matter high signal foci of doubtful clinical significance. 4. 1.3 cm left basal ganglia perivascular space. 5. Otherwise unremarkable brain MR. Report Dictated By: Robert Concepcion MD at 08/15/2018 4:19 PM Report E-Signed By: Robert Concepcion MD at 08/15/2018 4:24 PM WSN:[email or web address]
[2018-08-15 16:35] VITALS: BP 103/80
[2018-08-15 19:25] VITALS: BP 125/85
[2018-08-16 07:03] VITALS: BP 117/76
[2018-08-16] MEDS: ENOXAPARIN 40 MG/0.4ML SYR SC SCH (08:33)
[2018-08-16] MEDS: FOLIC ACID 1 MG TAB PO SCH (08:33)
[2018-08-16] MEDS: PANTOPRAZOLE SOD 40 MG TABEC PO SCH (08:33)
[2018-08-16] MEDS: THIAMINE HCL 100 MG TAB PO SCH (08:33)
--- NOTE | 2018-08-16 16:04 | Hospitalist Progress Note ---
Subjective Progress Notes Subjective Staff reporting that he has poor balance. Physical Exam Vital Signs Date Time Temp Pulse Resp B/P (MAP) Pulse Ox O2 Delivery O2 Flow Rate FiO2 08/16/18 08:36 93 Room Air 08/16/18 07:03 98.2 91 20 117/76 (90) Intake and Output 08/16/18 07:02 Intake Total 810 ml Balance 810 ml Intake Oral 810 ml # Voids 4 General Appearance: No Acute Distress, Other (Sleeping but awakened to voice) Respiratory: Other (Breathing comfortably) Integumentary: Jaundice Result Diagram: 08/15/1883308/15/18833 Assessment and Plan Problems: (1) Weakness Status: Acute Assessment & Plan: He has been working with therapy. There was noting of left leg weakness, which is causing difficulty with ambulation. MRI of brain showed no acute findings but did have a 1.3 cm left basal ganglia perivascular space. Overall, he is still having problems with balance when ambulating requiring mod erate assistance. They are [facility]. Will ask [facility] to help with disposition. (2) Alcohol withdrawal Status: Acute Assessment & Plan: He presented to the ER after 2 seizure at the [facility]. It is unknown when he consumed his last drink of alcohol. He had a prolonged alcohol withdrawal requiring a significant amount of Valium. He is now through the withdrawal. LFT's are elevated but improving. INR is wnl. MCV elevated. Ammonia level WNL. Bili starting to decrease. He denies any help for alcohol cessation at this time. He also will get speech evaluation to assess mental status. (3) Alcohol related seizure Status: Acute Assessment & Plan: See above. He has had alcohol related seizures in the past. He had one while trying to cut back a week prior to admission. CT's of head and neck without obvious injury. No worrisome symptoms or on exam. (4) Hypokalemia Status: Acute Assessment & Plan: Secondary to alcohol use. Replace as needed. (5) Hypomagnesemia Status: Acute Assessment & Plan: Secondary to alcohol use. Replace as needed. Exam Sepsis Risk: No Definite Risk Problem Qualifiers (1) Alcohol withdrawal: Complication of substance-induced condition: uncomplicated Qualified Codes: F10.230 - Alcohol dependence with withdrawal, uncomplicated SUNDEEP HONG MD Aug 16, 2018 16:03
[2018-08-16 16:55] VITALS: BP 119/82
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
[2018-08-16 23:32] VITALS: BP 119/76
[2018-08-17] MEDS ORDERED: IBUPROFEN 600 MG TAB PO PRN (05:20)
[2018-08-17 07:28] VITALS: BP 117/72
[2018-08-17] MEDS: THIAMINE HCL 100 MG TAB PO SCH (09:01)
[2018-08-17] MEDS: FOLIC ACID 1 MG TAB PO SCH (09:01)
[2018-08-17] MEDS: PANTOPRAZOLE SOD 40 MG TABEC PO SCH (09:01)
[2018-08-17] MEDS: ENOXAPARIN 40 MG/0.4ML SYR SC SCH (09:01)
[2018-08-17 11:34] VITALS: BP 111/70
--- NOTE | 2018-08-17 13:11 | Hospitalist Progress Note ---
Subjective Progress Notes Subjective JACKIE overnight, medically stable. Disposition planning underway but complicated by patient resistance. Physical Exam Vital Signs Date Time Temp Pulse Resp B/P (MAP) Pulse Ox O2 Delivery O2 Flow Rate FiO2 08/17/18 11:34 98.3 85 16 111/70 (84) 92 Room Air Intake and Output 08/17/18 07:02 Intake Total 0 ml Balance 0 ml Intake Oral 0 ml # Voids 2 # Bowel Movements 1 General Appearance: Awake, No Acute Distress Cardiovascular: Normal Rhythm & Peripheral Pulses Respiratory: No Respiratory Distress Musculoskeletal: Other (generalized weakness.) Extremities: Soft and Non Tender, Warm, Pulses, Perfused Result Diagram: 08/15/18 0834 08/15/18 0834 Assessment and Plan Problems: (1) Weakness Status: Acute Assessment & Plan: He has been working with therapy. There was noting of left leg weakness, which is causing difficulty with ambulation. MRI of brain showed no acute findings but did have a 1.3 cm left basal ganglia perivascular space. Overall, he is still having problems with balance when ambulating requiring moderate assistance. They are recommending terminal gauger rehab. Will ask TCN to help with disposition, patient resistant to placement. ST recommending 24hr supervision based on MOCA. (2) Alcohol withdrawal Status: Acute Assessment & Plan: [facility] It is unknown when he consumed his last drink of alcohol. He had a prolonged alcohol withdrawal requiring a significant amount of Valium. He is n ow through the withdrawal. LFT's are elevated but improving. INR is wnl. MCV elevated. Ammonia level WNL. Bili starting to decrease. He denies any help for alcohol cessation at this time. MOCA score is low, ST recommend 24hour supervision and help with ADL. (3) Alcohol related seizure Status: Acute Assessment & Plan: See above. He has had alcohol related seizures in the past. He had one while trying to cut back a week prior to admission. CT's of head and neck without obvious injury. No worrisome symptoms or on exam. (4) Hypokalemia Status: Acute Assessment & Plan: Secondary to alcohol use. Replace as needed. (5) Hypomagnesemia Status: Acute Assessment & Plan: Secondary to alcohol use. Replace as needed. Exam Sepsis Risk: No Definite Risk Problem Qualifiers (1) Alcohol withdrawal: Complication of substance-induced condition: uncomplicated Qualified Codes: F10.230 - Alcohol dependence with withdrawal, uncomplicated TRAMAINE RIOS DO Aug 17, 2018 13:11
[2018-08-17 15:25] VITALS: BP 104/71
[2018-08-17 21:32] VITALS: BP 134/84
[2018-08-18 07:18] VITALS: BP 107/76
[2018-08-18] MEDS: PANTOPRAZOLE SOD 40 MG TABEC PO SCH (08:59)
[2018-08-18] MEDS: THIAMINE HCL 100 MG TAB PO SCH (08:59)
[2018-08-18] MEDS: ENOXAPARIN 40 MG/0.4ML SYR SC SCH (08:59)
[2018-08-18] MEDS: FOLIC ACID 1 MG TAB PO SCH (08:59)
--- NOTE | 2018-08-18 09:33 | Medical Nutrition Therapy ---
Nutrition Anthropometrics Height (Inches): 74.00 Height (Calculated Centimeters: 187.582616 Weight (Pounds): 180 Weight (Calculated Kilograms): 81.647 BMI: 23.1 Wesley Nutrition Score: Probably Inadequate Wesley Nutrition Risk Score: 17 Dietary Referral Nutrition Risk Factors: Nutrition Risk Comment: Nutritional Diagnosis Nutritional Risk Acuity 3: Fair Appetite, Alcohol abuse Past Medical History: Denies any medical hx however has hx of alcohol abuse. Nutritional Acuity: 3-Mild Nutrition Diagnosis: Inadequate Food Intake Nutrition Etiology: Psychological Issues Nutrition Problem/Etiology/Sym: AEB intake averaging 25% /5 days with many refused meals. Energy Requirement: 2300 (MSJ) Diet Type: Diet as Tolerated BLANCA/REG Nutrition Intervention: Cont diet as ordered, Encourage intake, Between meal supplement Additional Diet Restrictions: OFFER NUTR SUPPLMENT Nutrition Monitoring & Eval Nutrition Goals: Eat 75-100% Meal, Drink > 2 liters/day Nutrition Follow-Up: Fair Intake RD Patient Assessment Time: [address] Assessment Type: RD Re-Assessment Patient Nutrition Acuity: 3-Mild Follow Up Date: Aug 22, 2018 Nutritional Comment: 08/14 Pt admitted with alcohol detox and seizures Intake averge 25% past 5 days with many refused meals. Pt has jaundice and elevated bilirubin which can have side affect of appetite. Will offer nutr supplement to encourage intake. hallie ocnt to monitor. IMANI 08/18 Pt cont on BLANCA. pt cont to refuse meals but intake has improved t 58% past 3 days. alb 3.5, Mg 1.7, K+ 3.6, all within desired range. SPL elval indicated no swallowing issues. Will cont to monitor and encourage intake. SATISH AHMADI Aug 18, 2018 09:33
--- NOTE | 2018-08-18 10:27 | Hospitalist Progress Note ---
Subjective Progress Notes Subjective He seems to be more interactive this AM. He has been working with therapy. Physical Exam Vital Signs Date Time Temp Pulse Resp B/P (MAP) Pulse Ox O2 Delivery O2 Flow Rate FiO2 08/18/18 07:33 93 Room Air 08/18/18 07:18 98.6 94 20 107/76 (86) Intake and Output 08/18/18 07:02 Intake Total 460 ml Output Total 1 ml Balance 459 ml Intake Oral 460 ml Stool Total 1 ml # Voids 5 General Appearance: Alert, Awake Cardiovascular: Regular Rate and Rhythm Respiratory: Clear to Auscultation GI: Soft and Non-Tender Extremities: Warm, Perfused Result Diagram: 08/15/1834 08/15/18 0834 Assessment and Plan Problems: (1) Weakness Status: Acute Assessment & Plan: He has been working with therapy. MRI of brain showed no acute findings but did have a 1.3 cm left basal ganglia perivascular space. He has been having problems with balance when ambulating requiring moderate assistance, but this does appear somewhat better this AM. 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 ST also recommending 24hr supervision based on MOCA. (2) Alcohol withdrawal Status: Acute Assessment & Plan: He presented to the ER after 2 seizures at the [facility]. It is unknown when he consumed his last drink of alcohol. He had a prolonged alcohol withdrawal requiring a significant amount of Valium. He now appears through the withdrawal. LFT's are elevated but improving. INR is in normal range. MCV elevated. Ammonia level WNL. Bilirubin starting to decrease. He denies any help for alcohol cessation at this time. MOCA score is low, ST recommend 24hour supervision and help with ADL. (3) Alcohol related seizure Status: Acute Assessment & Plan: See above. He has had alcohol related seizures in the past. He had one while trying to cut back a week prior to admission. CT of head and neck without obvious injury. No recurrent seizures thus far. (4) Hypokalemia Status: Acute Assessment & Plan: Resolved. Secondary to alcohol use. Monitor periodically. (5) Hypomagnesemia Status: Acute Assessment & Plan: Resolved. Secondary to alcohol use. Monitor periodically. Exam Sepsis Risk: No Definite Risk Problem Qualifiers (1) Alcohol withdrawal: Complication of substance-induced condition: uncomplicated Qualified Codes: F10.230 - Alcohol dependence with withdrawal, uncomplicated OSEI MICHELLE MD Aug 18, 2018 10:27
[2018-08-18 11:50] VITALS: BP 114/76
[2018-08-18 14:48] VITALS: BP 117/78
[2018-08-18 19:59] VITALS: BP 111/70
[2018-08-19 00:02] VITALS: BP 116/78
[2018-08-19 06:28] LABS: PLATELET COUNT, AUTOMATED 370 K/uL (150-450)
[2018-08-19 07:26] VITALS: BP 97/69
[2018-08-19] MEDS: ENOXAPARIN 40 MG/0.4ML SYR SC SCH (08:35)
[2018-08-19] MEDS: FOLIC ACID 1 MG TAB PO SCH (08:35)
[2018-08-19] MEDS: PANTOPRAZOLE SOD 40 MG TABEC PO SCH (08:35)
[2018-08-19] MEDS: THIAMINE HCL 100 MG TAB PO SCH (08:35)
--- NOTE | 2018-08-19 10:24 | Hospitalist Progress Note ---
Subjective Progress Notes Subjective This patient was admitted for alcohol withdrawal. He had no acute events overnight. Patient Complains of: Cardiovascular: No: Chest Pain Respiratory: No: Shortness of Breath Physical Exam Vital Signs Date Time Temp Pulse Resp B/P (MAP) Pulse Ox O2 Delivery O2 Flow Rate FiO2 08/19/18 08:26 91 Room Air 08/19/18 07:26 98.6 92 17 97/69 (78) Intake and Output 08/19/18 07:02 Intake Total 837 ml Balance 837 ml Intake Oral 837 ml # Voids 4 Cardiovascular: Regular Rate and Rhythm Respiratory: Clear to Auscultation Result Diagram: 08/19/18 0539 08/19/18 0539 Assessment and Plan Problems: (1) Weakness Status: Acute Assessment & Plan: He has been working with therapy. MRI of brain showed no acute findings but did have a 1.3 cm left basal ganglia perivascular space. He has been having problems with balance when ambulating requiring moderate assistance, but this does appear somewhat better this AM. PT/OT are recommending halfway rehab. ST also recommending 24hr supervision based on MOCA. (2) Alcohol withdrawal Status: Acute Assessment & Plan: He [facility] It is unknown when he consumed his last drink of alcohol. He had a prolonged alcohol withdrawal requiring a significant amount of Valium. He now appears through the withdrawal. LFT's are elevated but improving. INR is in normal range. MCV elevated. Ammonia level WNL. Bilirubin starting to decrease. He denies any help for alcohol cessation at this time. MOCA score is low, ST recommend 24hour supervision and help with ADL. (3) Alcohol related seizure Status: Acute Assessment & Plan: See above. He has had alcohol related seizures in the past. He had one while trying to cut back a week prior to admission. CT of head and neck without obvious injury. No recurrent seizures thus far. (4) Hypokalemia Status: Acute Assessment & Plan: Resolved. Secondary to alcohol use. Monitor periodically. (5) Hypomagnesemia Status: Acute Assessment & Plan: Resolved. Secondary to alcohol use. Monitor periodically. Exam Sepsis Risk: No Definite Risk Problem Qualifiers (1) Alcohol withdrawal: Complication of substance-induced condition: uncomplicated Qualified Codes: F10.230 - Alcohol dependence with withdrawal, uncomplicated JOSIANE HORN DO Aug 19, 2018 10:24
[2018-08-19 10:38] VITALS: BP 106/72
--- NOTE | 2018-08-19 10:55 | Transfer Summary (ECF/SWB) ---
Transfer Summary (ECF/SWB) Problems: (1) Weakness Status: Acute Assessment & Plan: He has been working with therapy. MRI of brain showed no acute findings but did have a 1.3 cm left basal ganglia perivascular space. He has been having problems with balance when ambulating requiring moderate assistance, but this does appear somewhat better this AM. 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 ST also recommending 24hr supervision based on MOCA. (2) Alcohol withdrawal Status: Acute Assessment & Plan: [facility] It is unknown when he consumed his last drink of alcohol. He had a prolonged alcohol withdrawal requiring a significant amount of Valium. He now appears through the withdrawal. LFT's are elevated but improving. INR is in normal range. MCV elevated. Ammonia level WNL. Bilirubin starting to decrease. He denies any help for alcohol cessation at this time. MOCA score is low, ST recommend 24hour supervision and help with ADL. (3) Alcohol related seizure Status: Acute Assessment & Plan: See above. He has had alcohol related seizures in the past. He had one while trying to cut back a week prior to admission. CT of head and neck without obvious injury. No recurrent seizures thus far. (4) Hypokalemia Status: Acute Assessment & Plan: Resolved. Secondary to alcohol use. Monitor periodically. (5) Hypomagnesemia Status: Acute Assessment & Plan: Resolved. Secondary to alcohol use. Monitor periodically. Latest Vital Signs Vital Signs Date Time Temp Pulse Resp B/P (MAP) Pulse Ox O2 Delivery O2 Flow Rate FiO2 08/19/18 10:38 97.7 98 16 106/72 (83) 93 Room Air Result Diagram: 08/19/18 0539 08/19/18 0539 Condition: Improved Disposition: SNF/NH Treatment Goals and Plan Patient requires senior care and/or skilled rehabilitation with the goal to increase independence with ADL's, functional strength and mobility. Continue and adjust medication regimen. Services Required: PT, OT, VOCATIONAL COUNSELOR Problem Qualifiers (1) Alcohol withdrawal: Complication of substance-induced condition: uncomplicated Qualified Codes: F10.230 - Alcohol dependence with withdrawal, uncomplicated JOSIANE HORN DO Aug 19, 2018 10:55
== END 2018-08-19 13:36 | DRG 897 ==
LOC: ER 13:45 → MED 16:13 → ECF 08-19 13:32 → MED 08-19 13:34
PROVIDERS: ADMIT Internal Medicine; ATTEND Family Medicine
DX: F10.231 Alcohol dependence with withdrawal delirium (principal); R53.1 Weakness; F95.2 Tourette's disorder; F17.210 Nicotine dependence, cigarettes, uncomplicated; E87.6 Hypokalemia; E83.42 Hypomagnesemia; Y90.3 Blood alcohol level of 60-79 mg/100 ml
CPT/HCPCS: 36415; 70030; 70200; 70450; 70551; 71260; 72125; 74177; 80320; 82040; 82140; 82247; 82310; 82374; 82435; 82565; 82947; 83735; 84075; 84132; 84155; 84295; 84450; 84460; 84520; 85025; 85610; 85730; 92523; 96361; 96374; 96375; 97161; 97166; 99285; J1650; J2405; J3360; J3411; J3475; J3480; J7030; J7040; Q9967

== ENCOUNTER → 2018-08-08 | Outpatient (CLI) | payer SELFPAY ==
[~2018-08-08] MED LIST: BACL-51 PO; DIAZ-311 PO; ESOM40CA42 PO; FLUO-177 PO; LAMO100T5 PO; OXCA300T59 PO
[2018-08-09 11:29] VITALS: BMI 23.1
== END ==
LOC: AMB 13:21
PROVIDERS: ATTEND Nurse Practitioner
DX: R56.9 Unspecified convulsions (principal)
CPT/HCPCS: A0425; A0427

== ENCOUNTER 2018-08-19 13:40 | Inpatient (IN) | payer SELFPAY ==
[2018-08-09 11:29] VITALS: Ht 188 cm; Wt 73.9 kg
[~2018-08-19] VITALS: Ht 188 cm; Wt 73.9 kg
--- NOTE | 2018-08-19 13:00 | NUR ---
Late entry Brother at bedside, reported to this nurse that Pt ambulated self to bathroom. Pt was assisted back to bed, was unsteady and determined to be a fall risk. Bed alarm initiated, hourly rounds being done.
[2018-08-19] MEDS ORDERED: NICOTINE INH SYSTEM 10 MG/INH INH PRN (13:42)
[2018-08-19] MEDS ORDERED: CALCIUM CARBONATE 500 MG CHEW PO PRN (13:42)
--- NOTE | 2018-08-19 13:51 | Consultant Pharmacy Review ---
Stave Cutting Supervisor Review Medication Review Do All Mecications have a Diag: Yes Pneumococcal Vaccine HX Pneumo Vac ([id number]): No HX Pneumo Vac (Pneumovax): No Comments Regarding the Review Beers criteria not applicable. TUSHAR PRINCE Aug 19, 2018 13:51
[2018-08-19 14:09] VITALS: BP 110/65
[2018-08-20 07:39] VITALS: BP 102/69
--- NOTE | 2018-08-20 07:45 | NUR ---
Fall Risk/Knife Patient was going through his personal belongings and asked "is there was a safe place he could keep his items until he leaves." I informed patient I could call security and they could come get his items and put them in the hospital safe. That is when the patient stated "they should probably keep my knife there too, or can I keep it." I replied "No security needs to take your knife, no weapons are allowed." Patient agreed and allowed security to remove knife and personal belongings to be placed in the hospital safe. Patient was in restroom asking what a pull-tab brief was, I told the patient it was a brief, as the patient went to leave the restroom doorway I caught the patient from falling. I asked the patient to keep and use the walker, I brought the walker to the patient in the restroom doorway. Patient grabbed the walker with one hand, I re-situated the walker so the patient would use both hands as walker is intended (patient stated " Im a smartass" and laughed, then used walker properly). Patient proceeded to the bed and as the patient stopped walking next to the bed, the patient then went weak in the knees and I caught the patient a second time. I requested the patient sit on the bed, he refused. I told patient the bed is safer since he has almost fallen twice now. Patient agreed and sat on the edge of the bed with legs and half the patients butt hanging over the edge of the bed, I requested the patient sit back. He agreed and adjusted on the bed. Nurse notified and directed for bed alert to be issued for patient
[2018-08-20] MEDS: PANTOPRAZOLE SOD 40 MG TABEC PO SCH (08:42)
[2018-08-20] MEDS: ENOXAPARIN 40 MG/0.4ML SYR SC SCH (08:42)
[2018-08-20] MEDS: THIAMINE HCL 100 MG TAB PO SCH (08:42)
[2018-08-20] MEDS: FOLIC ACID 1 MG TAB PO SCH (08:42)
--- NOTE | 2018-08-20 10:13 | Medical Nutrition Therapy ---
Nutrition Anthropometrics Height (Inches): 74 Weight (Pounds): 176 Weight (Calculated Kilograms): 79.832 Wesley Nutrition Score: Probably Inadequate Wesley Nutrition Risk Score: 16 Dietary Referral Nutrition Risk Factors: Nutrition Risk Comment: Nutritional Diagnosis Nutritional Risk Acuity 3: Fair Appetite, Alcohol abuse, Substance abuse Past Medical History: Denies any medical hx however has hx of alcohol abuse. Nutritional Acuity: 3-Mild Energy Requirement: 2000 (MSJ) Protein Requirement: 80 (1gm/kg) Fluid Requirement: 2000 (1ml/kcal) Diet Type: Diet as Tolerated BLANCA/REG Nutrition Intervention: Cont diet as ordered, Encourage intake, HS snack Nutrition Monitoring & Eval Nutrition Goals: Eat 75-100% Meal RD Patient Assessment Time: [address] Assessment Type: RD Assessment Patient Nutrition Acuity: 3-Mild Follow Up Date: Aug 29, 2018 Nutritional Comment: 08/20 Pt s/p alcoholic seizure. Pt intake fair on med floor with several refused meals. Pt ate 100% of first meal on unit. Wt is down 4# (2.2%) from admitting wt on med unit 09/08. Will cont to monitor and encourage intake. SATISH Rapp Aug 20, 2018 10:13
[2018-08-20 15:18] VITALS: BP 96/61
--- NOTE | 2018-08-21 06:40 | NUR ---
Continuing to use bed alarm due to resident own admission of confusion/forgetfulness. Had resident sign care plan. Walked to and from BR twice with gait belt/walker and CGA. No pain reported. Some c/o not being able to sleep.
[2018-08-21 07:10] VITALS: BP 104/66
[2018-08-21] MEDS: PANTOPRAZOLE SOD 40 MG TABEC PO SCH (09:05)
[2018-08-21] MEDS: THIAMINE HCL 100 MG TAB PO SCH (09:05)
[2018-08-21] MEDS: FOLIC ACID 1 MG TAB PO SCH (09:05)
[2018-08-21] MEDS: ENOXAPARIN 40 MG/0.4ML SYR SC SCH (09:05)
--- NOTE | 2018-08-21 09:08 | NUR ---
After obtaining permission from Cecilio Blackman, Paster Supervisor, letter written to document that resident is in fact here and will be here for the next several days. This was requested by [id number] for court.
--- NOTE | 2018-08-21 11:51 | ECF History & Physical ---
Transfer Summary (ECF/SWB) Problems: (1) Weakness Status: Acute Assessment & Plan: He has been working with therapy. MRI of brain showed no acute findings but did have a 1.3 cm left basal ganglia perivascular space. He has been having problems with balance when ambulating requiring moderate assistance, but this does appear somewhat better this AM. 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 ST also recommending 24hr supervision based on MOCA. (2) Alcohol withdrawal Status: Acute Assessment & Plan: He presented to the ER [facility]. It is unknown when he consumed his last drink of alcohol. He had a prolonged alcohol withdrawal requiring a significant amount of Valium. He now appears through the withdrawal. LFT's are elevated but improving. INR is in normal range. MCV elevated. Ammonia level WNL. Bilirubin starting to decrease. He denies any help for alcohol cessation at this time. MOCA score is low, ST recommend 24hour supervision and help with ADL. (3) Alcohol related seizure Status: Acute Assessment & Plan: See above. He has had alcohol related seizures in the past. He had one while trying to cut back a week prior to admission. CT of head and neck without obvious injury. No recurrent seizures thus far. (4) Hypokalemia Status: Acute Assessment & Plan: Resolved. Secondary to alcohol use. Monitor periodically. (5) Hypomagnesemia Status: Acute Assessment & Plan: Resolved. Secondary to alcohol use. Monitor periodically. Latest Vital Signs Vital Signs Date Time Temp Pulse Resp B/P (MAP) Pulse Ox O2 Delivery O2 Flow Rate FiO2 08/19/18 10:38 97.7 98 16 106/72 (83) 93 Room Air Result Diagram: 08/19/18 0539 08/19/18 0539 Condition: Improved Disposition: SNF/NH Treatment Goals and Plan Patient requires senior care and/or skilled rehabilitation with the goal to increase independence with ADL's, functional strength and mobility. Continue and adjust medication regimen. Services Required: PT, OT, BUSINESS LINE MANAGER Problem Qualifiers (1) Alcohol withdrawal: Complication of substance-induced condition: uncomplicated Qualified Codes: F10.230 - Alcohol dependence with withdrawal, uncomplicated JOSIANE HORN DO Aug 19, 2018 10:55 <Electronically signed by OJSIANE HORN DO> D/ [id number] MICHAEL/DEBORAH CC: [email or web address]
--- NOTE | 2018-08-21 13:49 | OT ECF NOTE ---
Type of Note: Initial Note Primary Medical Diagnosis: Generalized weakness s/p alcohol withdraw and alcohol related seizure Occupational Therapy Evaluation Date: 08/21/18 SUBJECTIVE: Prior Hospitalization: [facility] Medical 08/08/18-08/19/18 Prior Level of Function: Independent with ADLs/IADLs Prior Living Status: Bi-level house Alone Community Services: No known needs Home Accessibility: Stairs with rails All needs on one level Equipment Owned: None Medical Complications/Past Medical History: Please refer to EMR Psychosocial Support: Details unknown-Family in [place] Pain Scale (0-10): None reported at time of evaluation OBJECTIVE: Strength: MMT: Right Left Shoulder Flexion WFL WFL Elbow Flexion WFL WFL Wrist Extension WFL WFL Technology Instructor WFL WFL (5= normal, 4= good, 3= fair, 2= poor, 1= trace) ROM: Both upper extremities, WFL Sensation: No paraesthesia reported Functional Transfer: Assistive Device: Front wheeled walker Transfer Ability: Minimum assistance, CGA, Verbal cues Poor balance and safety awareness. Occasional Min-Mod A in order to maintain upright position with functional mobility. ADL: Upper body dressing: Assistive device: Upper body dressing ability: N/T Lower body dressing: Assistive device: Lower body dressing ability: SBA-seated Toileting: Assistive device: Toileting ability: N/T Grooming/hygiene: Assistive device: Grooming ability: N/T Bathing: Assistive device: Bathing ability: N/T Standardized Assessment: Darius Index of Activities of Daily Livin/20 upon initial evaluation (08/21/18). Assessment: Oscar presents to [facility] with decreased balance requiring physical assist to maintain standing balance and assist to safely complete ADLs. He will benefit from skilled OT services to optimize independence and safety for engagement in ADLs. Problem List/Current Limitations: Decreased balance Poor safety awareness Short Term Goals: 1) Pt Darius Index of ADLs score will improve by 2 points. 2) Pt will be SBA toilet task. 3) Pt will be SBA oral care standing sinkfront. 4) Pt will be educated on appropriate adaptive equipment needs. [facility] Goals: Discharge to least restrictive environment. See EMR for [facility] medical admission for details regarding speech cognitive evaluation and recommendation for / supervision. Patient Goals: Unsure Rehabilitation Prognosis: Fair Barriers to Discharge: Poor progression, Decreased safety awareness PLAN: The patient will benefit from skilled occupational therapy services 5 times per week for 2 weeks including: Ther ex ADL training Safety training Ther act IADL training Transfer training Adaptive equip training Bed mobility Energy conservation Thank you for this referral. If you have any questions, concerns, or comments about this report or plan, please contact me at . Lisandra Ch MS, OTR/L Occupational Therapist [facility]
--- NOTE | 2018-08-21 14:14 | NUR ---
Physical Therapy Impression PT eval complete. Please see EMR Other Reports for details. Physical Therapy Goals 1. Mod I bed mobility. 2. Mod I transfers. 3. Mod I gait x 150' with appropriate assistive device. 4. Mod I ascend/descend 1 flight of stairs. Patient's Goals
--- NOTE | 2018-08-21 14:23 | PT ECF NOTE ---
Type of Note: Initial Note Primary Medical Diagnosis: ETOH withdrawal, weakness Physical Therapy Evaluation Date: 08/21/2018 SUBJECTIVE: Prior Hospitalization: [facility] Med/Surg for ETOH withdrawal and associated seizure Prior Level of Function: Independent with functional mobility and ADLs Prior Living Status: Apartment, Alone Community Services: Independent Home Accessibility: 15 Stairs with rails Equipment Owned: none Medical Complications/Past Medical History: TBI, see EMR for other Psychosocial Support: see social work note Pain Scale (0-10): Pt states he "hurts all over". OBJECTIVE: Bed Mobility: SBA Assistive device: Bed rail, Head of bed elevated Transfers: CGA Assistive Device: Front wheeled walker Gait: [id number] noted shuffling gait with small step-length such that feet do not pass each other. Pt unable to safely turn with loss of balance noted with direction changes. Assistive device: Front wheeled walker Stairs: not evaluated 5-time sit<>stand: 39 seconds ASSESSMENT: Pt presents with a decreased strength, balance, and independent with functional mobility compared to is independent prior level of function. Pt will benefit from skilled PT for strengthening, balance and functional mobility training in order to return to prior independent lifestyle. Problem List/Current Limitations: Decreased activity tolerance, Decreased strength, Decreased coordination, Decreased balance, Generalized weakness, Poor safety awareness, Memory deficits, Decreased problem solving Short Term Goals: 1. Mod I bed mobility. 2. Mod I transfers. 3. Mod I gait x 150' with appropriate assistive device. 4. Mod I ascend/descend 1 flight of stairs. 5. Improve 5-time sit<>stand score to <30 seconds. Nursing Home Goals: Return to independent living Patient Goals: Return to independent living Rehabilitation Prognosis: Fair Barriers for Discharge: unsure discharge plan if Pt cannot regain independence. PLAN: The patient will benefit from skilled physical therapy services 5 times per week for 2 weeks including: Therapeutic Exercise, Therapeutic Activities, Transfer Training, Gait Training, Stair Training, ADL's, Safety Training, Neuromuscular Re-educ., Pt/Caregiver Training, Bed Mobility Thank you for this referral. If you have any questions, concerns, or comments about this report or plan, please contact me at . Yudi Cortez, PT, DPT, GCS MTDD
--- NOTE | 2018-08-21 15:13 | NUR ---
Bed alarm going off, ran to room, found resident crumbling to hisknees with his pants down around his ankles. States he was reaching for his walker to go to the bathroom when his legs gave out and he went down to his knees. Assisted to standing position, ambulated to bathroom and assisted to bed. 123/77, pulse 77, respirations 18. When asked why he won't call, states he just doesn't know. Dr. Dia notified.
[2018-08-21 16:50] VITALS: BP 121/77
[2018-08-22 07:13] VITALS: BP 109/71
[2018-08-22] MEDS: FOLIC ACID 1 MG TAB PO SCH (09:06)
[2018-08-22] MEDS: ENOXAPARIN 40 MG/0.4ML SYR SC SCH (09:06)
[2018-08-22] MEDS: THIAMINE HCL 100 MG TAB PO SCH (09:06)
[2018-08-22] MEDS: PANTOPRAZOLE SOD 40 MG TABEC PO SCH (09:06)
--- NOTE | 2018-08-22 11:45 | NUR ---
Occupational Therapy Impression Independent bed mobility in/out. CGA ambulation x100ft with RW. Mod Ax2 to correct 2 losses of balance. Pt with poor spatial awareness and balance. Pt requires frequent v/c's to appropriately sequence use of walker. CGA toileting. CGA oral care standing sinkfront. Use of toilet/counter top to promote increased safety and balance. Pt will likely require 24/7 supervision due to high fall risk and poor safety awareness. Occupational Therapy Goals 1) Pt Darius Index of ADLs score will improve by 2 points. 2) Pt will be SBA toilet task. 3) Pt will be SBA oral care standing sinkfront. 4) Pt will be educated on appropriate adaptive equipment needs. Patient's Goal
--- NOTE | 2018-08-22 13:54 | NUR ---
Bed Alarm On Today Bed alarm on today, as patient has had a recent fall (08/21), and has been getting OOB without assistance from staff (on previous shifts). He also has an unsteady gait. Orienting patient to safety on the unit and calling staff prior to ambulation.
--- NOTE | 2018-08-22 14:08 | NUR ---
Physical Therapy Impression Pt plans to d/c to alcohol rehab if possible, SW if working with patient and pt's mother on d/c planning. At this time, it is recommended that the patient receive close CGA for all mobility d/t high fall risk, therefore it was recommended that the pt d/c to alcohol rehab at w/c level with self propulsion in order to decrease risk of falls. The pt's mother is working to obtain a w/c. Emphasis of therapy session on appropriate use of w/c with management of brakes and foot rests, as well as self propulsion with both UE and LEs. PT instruction for set up and close CGA provided for transfer from bed<>w/c with no AD. Pt completed w/c mobility x100' with UE propulsion, but was resistant to PT cues for increased stroke length or use of LEs to assist with mobility. Pt tolerated ambulation x125' with RW, PT provided cues for increased step length, pt refused to attempt. Rec time clerk supervision with all transfers and ambulation upon d/c. Physical Therapy Goals 1. Mod I bed mobility. 2. Mod I transfers. 3. Mod I gait x 150' with appropriate assistive device. 4. Mod I ascend/descend 1 flight of stairs. 5. Improve 5-time sit<>stand score to <30 seconds. Patient's Goals
[2018-08-22 16:10] VITALS: BP 106/72
--- NOTE | 2018-08-22 19:53 | NUR ---
Bed alarm on this shift d\t prior fall and a history of noncompliance with calling.
--- NOTE | 2018-08-23 06:42 | NUR ---
Bed alarm in use r/t resident confusion and recent witnessed fall without injury. Resident has set off bed alarm three times during this eight-hour shift by exiting bed without calling staff.
[2018-08-23 07:12] VITALS: BP 109/77
--- NOTE | 2018-08-23 07:57 | NUR ---
Informed by Jose Luis Najera RN that resident is stating he's going out on pass with his mother today, there are stairs and he does not plan on taking his wheelchair. Questioned resident and he said he was going, writing things in his journal. ST Tina present during conversation. Informed him that I would contact therapy to evaluate the safety of his plan since stairs have not been addressed. Reminded him that the goal set yesterday during care conference was to work on independence on a wheelchair level. He replied "Maybe we'll shop for a wheelchair". Also informed him that Wednesdays is the day that the MD makes rounds and he needed to be here. He stated he did not. Explained that for his medical management and weekly rounds, regulations required he be seen by a physician. Contacted inpatient rehab to explain the situation and asked that therapy evaluate the safety of him managing stairs and ambulating independently with a walker versus wheelchair mobility. Message left with Jose Luis Ruvalcaba, Risk Management. Resident does not make eye contact during conversation, appears to be writing conversations in notebook. Earlier conversation with De BEAN who evaluated the resident on med/surg and stated he is competent to make his own decisions. Karyn Kyle, Director notified.
[2018-08-23] MEDS: PANTOPRAZOLE SOD 40 MG TABEC PO SCH (08:51)
[2018-08-23] MEDS: THIAMINE HCL 100 MG TAB PO SCH (08:51)
[2018-08-23] MEDS: FOLIC ACID 1 MG TAB PO SCH (08:51)
[2018-08-23] MEDS: ENOXAPARIN 40 MG/0.4ML SYR SC SCH (08:52)
--- NOTE | 2018-08-23 10:05 | NUR ---
Mother arrived, stated she absolutely would NOT take him out on pass.
--- NOTE | 2018-08-23 12:45 | NUR ---
Physical Therapy Impression Mckeon Balance Scale 22/56 indicating medium fall risk, walking with assistance (21-40 is the range, 20 and below indicate high fall risk, wheelchair bound). Discussed results with Pt with returned verbal understanding. Noted with many standing activities, Pt is unable to maintain erect posture with forward flexion up to 90 deg. at times. Hard copy of Mckeon Balance Scale placed in Pt's chart. Physical Therapy Goals 1. Mod I bed mobility. 2. Mod I transfers. 3. Mod I gait x 150' with appropriate assistive device. 4. Mod I ascend/descend 1 flight of stairs. 5. Improve 5-time sit<>stand score to <30 seconds. Patient's Goals
--- NOTE | 2018-08-23 13:30 | Hospitalist Progress Note ---
Subjective Progress Notes Subjective He denies any complaints. He has been working with therapy. He still has complaints of weakness. Patient Complains of: Cardiovascular: No: Chest Pain Respiratory: No: Shortness of Breath Physical Exam Vital Signs Date Time Temp Pulse Resp B/P (MAP) Pulse Ox O2 Delivery O2 Flow Rate FiO2 08/23/18 08:50 95 Room Air 08/23/18 07:12 98.2 110 16 109/77 (88) Intake and Output 08/23/18 07:02 Intake Total 1020 ml Balance 1020 ml Intake Oral 1020 ml # Voids 6 # Bowel Movements 3 General Appearance: Alert, Awake, No Acute Distress, Afebrile Cardiovascular: Regular Rate and Rhythm Respiratory: No Respiratory Distress, Clear to Auscultation GI: Soft and Non-Tender Extremities: Warm, Perfused; No Edema Psych: Appropriate Mood & Affect Result Diagram: 08/23/18 0621 Assessment and Plan Problems: (1) Weakness Status: Acute Assessment & Plan: He has been working with therapy. MRI of brain showed no acute findings but did have a 1.3 cm left basal ganglia perivascular space. He has been having problems with balance when ambulating requiring moderate assistance, but this does appear somewhat better. Continue PT/OT. ST also recommending 24hr supervision based on MOCA. (2) Alcohol withdrawal Status: Acute Assessment & Plan: He presented to the ER after 2 seizures at the senior living center. It is unknown when he consumed his last drink of alcohol. He had a prolonged alcohol withdrawal requiring a significant amount of Valium. He now appears through the withdrawal. LFT's are elevated but improving. INR is in normal range. MCV elevated. Ammonia level WNL. Bilirubin starting to decrease. He denies any help for alcohol cessation at this time. MOCA score is low, ST recommend 24hour supervision and help with ADL. (3) Alcohol related seizure Status: Acute Assessment & Plan: See above. He has had alcohol related seizures in the past. He had one while trying to cut back a week prior to admission. CT of head and neck without obvious injury. No recurrent seizures thus far. (4) Hypomagnesemia Status: Acute Assessment & Plan: Resolved. Secondary to alcohol use. Monitor periodically. (5) Hypokalemia Status: Acute Assessment & Plan: Resolved. Secondary to alcohol use. Monitor periodically. SANTI EDWARD APPAREL SALES LEADER Aug 23, 2018 13:30
--- NOTE | 2018-08-23 13:41 | NUR ---
Patient on bed alarm Patient on bed alarm due to recent fall from attempting to ambulate by himself. We are providing education about calling [facility] staff for assistance and not getting OOB by himself.
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
--- NOTE | 2018-08-23 15:44 | NUR ---
ST Impression Cognitive linguistic assessment complete. Pt demonstrates mild to moderate cognitive linguistic deficits most notably characterized by decreased attention, short-term memory, safety awareness/insight, and executive function skills (organization, planning, self-monitoring). Etiology is consistent with hx of multiple TBIs, likely exacerbated by parenchymal atrophy and substance abuse. Suspect pt is approaching pre-hospitalization baseline from a cog/lang standpoint. However, he would be unsafe to discharge home in the absence of daily, 24/7 sup and assistance for all IADLs with consideration of cognitive coupled w/ physical impairments. RECOMMENDATIONS 1. ST 2x/wk, 2 wks. 2. Plans to d/c to alcohol rehab. Recommend pt receive assistance with medication management, transportation, oracle financials consultant, and appointment management in d/c location. 3. Upon completion of alcohol rehab, pt would continue to benefit from access to OP ST services. PLAN OF CARE Short Term Goals 1. The patient will appropriately complete organization/planning tasks with access to external organization systems and min cues for awareness of errors to support deficits in executive functioning (planning, organization, self-monitoring) and promote prospective thinking for safe transition to next level of care. 2. The patient will accurately recall past and upcoming daily activities (e.g., medication administration times, bill payment dates, medical appointments, discussions with staff members) with access to compensatory short-term memory systems and min assist to improve safe and efficient management of IADLs prior to discharge.
[2018-08-23 17:10] VITALS: BP 98/63
--- NOTE | 2018-08-24 05:11 | NUR ---
D/t pt getting OOB prior to calling for assistance, unsteady gait and recent fall, bed alarm is in use this noc shift.
[2018-08-24 07:10] VITALS: BP 112/72
[2018-08-24] MEDS: ENOXAPARIN 40 MG/0.4ML SYR SC SCH (08:22)
[2018-08-24] MEDS: FOLIC ACID 1 MG TAB PO SCH (08:22)
[2018-08-24] MEDS: THIAMINE HCL 100 MG TAB PO SCH (08:22)
[2018-08-24] MEDS: PANTOPRAZOLE SOD 40 MG TABEC PO SCH (08:22)
--- NOTE | 2018-08-24 10:35 | NUR ---
Occupational Therapy Impression SBA w/c transfers bed<>w/c, w/c<>toilet, toilet<>w/c, and w/c<>bed. Independent w/c mobility turning corners and self-propelling. Demonstrating improved safety with management of brakes as tx progressed. Pt declined further ADLs or functional mobility with walker. Requesting return to bed for a nap. Recommend discharge to alcohol rehab at a w/c level if able. Occupational Therapy Goals 1) Pt Darius Index of ADLs score will improve by 2 points. 2) Pt will be SBA toilet task. 3) Pt will be SBA oral care standing sinkfront. 4) Pt will be educated on appropriate adaptive equipment needs. Patient's Goal
--- NOTE | 2018-08-24 14:22 | NUR ---
Physical Therapy Impression Pt with varied performance and safety demonstrated throughout session. CGA for transfers at beginning of session with use of RW. Ambulation x150' with RW, with PT cues for increased step length and upright posture.PT instructed pt in sitting balance tasks on rosas disc with alternating UE and LE movements in order to facilitate balance reactions in sitting. Pt demonstrated improved posture with this task, but did fatigue quickly. PT instruction for seated LE ther-ex in order to increase LE strength for functional tasks. Exercises completed with 2# ankle weights in place and blue theraband for hamstring curls, with PT instruction for eccentric control. Pt with good tolerance to 2x10 reps. After ther-ex, pt eugenio to stand with RW and demonstrated major LOB backwards, requiring modA to safely sit on mat table to prevent fall. Pt reports dizziness, SpO2 and pulse rate WNL. Upon return to room, BP measured at 111/73 mmHg, pt asymptomatic. RN notified. Continue to recommend close CGA for all mobility d/t high fall risk. Physical Therapy Goals 1. Mod I bed mobility. 2. Mod I transfers. 3. Mod I gait x 150' with appropriate assistive device. 4. Mod I ascend/descend 1 flight of stairs. 5. Improve 5-time sit<>stand score to <30 seconds. Patient's Goals
[2018-08-24 16:30] VITALS: BP 95/73
[2018-08-25 07:22] VITALS: BP 119/72
[2018-08-25] MEDS: PANTOPRAZOLE SOD 40 MG TABEC PO SCH (09:23)
[2018-08-25] MEDS: FOLIC ACID 1 MG TAB PO SCH (09:23)
[2018-08-25] MEDS: THIAMINE HCL 100 MG TAB PO SCH (09:23)
[2018-08-25] MEDS: ENOXAPARIN 40 MG/0.4ML SYR SC SCH (09:23)
--- NOTE | 2018-08-25 14:50 | NUR ---
Occupational Therapy Impression SBA w/c transfers bed<>w/c, w/c<>couch, couch<>w/c, w/c<>bed. Pt requiring v/c's 50% of transfers to position w/c and utilize brakes. Improved safety awareness and (I) as tx progressed. Independent w/c mobility x450ft, various surfaces, thresholds and turns incorporated. Set-up UB/LB dressing. Pt requires posterior support (bed) during LB dressing in standing to maintain balance. Pt progressing well towards (I) with w/c if alcohol rehab can accommodate a w/c level. Continue POC. Occupational Therapy Goals 1) Pt Darius Index of ADLs score will improve by 2 points. 2) Pt will be SBA toilet task. 3) Pt will be SBA oral care standing sinkfront. 4) Pt will be educated on appropriate adaptive equipment needs. Patient's Goal
--- NOTE | 2018-08-25 14:57 | NUR ---
Physical Therapy Impression Focus on functional strengthening and neuro re-education this session, please see note for details on interventions. Pt fatigued by end of session which increased his balance difficulties, most notable when turning into his room and Pt had to steady himself along the wall to prevent falling. This PT was also providing Mod A for fall prevention. Physical Therapy Goals 1. Mod I bed mobility. 2. Mod I transfers. 3. Mod I gait x 150' with appropriate assistive device. 4. Mod I ascend/descend 1 flight of stairs. 5. Improve 5-time sit<>stand score to <30 seconds. Patient's Goals
--- NOTE | 2018-08-25 15:18 | NUR ---
5-day MDS completed with pt. C: 10, E: concerns with disorganized thinking and inattention regularly, E: no concerns, Q: referrals sent for pt to transition to alcohol rehab at [place], however, facilities have denied pt due to his limited mobility and physical needs. COLE will continue to work with pt on DC plans as he continues working with rehab for strengthening.
[2018-08-25 15:25] VITALS: BP 108/72
[2018-08-26 07:45] VITALS: BP 97/68
[2018-08-26] MEDS: FOLIC ACID 1 MG TAB PO SCH (08:57)
[2018-08-26] MEDS: PANTOPRAZOLE SOD 40 MG TABEC PO SCH (08:57)
[2018-08-26] MEDS: THIAMINE HCL 100 MG TAB PO SCH (08:57)
[2018-08-26] MEDS: ENOXAPARIN 40 MG/0.4ML SYR SC SCH (08:58)
--- NOTE | 2018-08-26 15:14 | NUR ---
Activities: Pt. offered to look through our movie selection for movie Tuesday, refused, has own movie playing on phone.
[2018-08-26 15:27] VITALS: BP 107/69
--- NOTE | 2018-08-26 18:24 | NUR ---
Bed Alarm Bed alarm on this shift due to patient having a history of non-compliance with calling, as well as a recent fall.
[2018-08-27 09:04] VITALS: BP 113/68
[2018-08-27] MEDS: THIAMINE HCL 100 MG TAB PO SCH (09:27)
[2018-08-27] MEDS: PANTOPRAZOLE SOD 40 MG TABEC PO SCH (09:27)
[2018-08-27] MEDS: FOLIC ACID 1 MG TAB PO SCH (09:27)
[2018-08-27] MEDS: ENOXAPARIN 40 MG/0.4ML SYR SC SCH (09:28)
--- NOTE | 2018-08-27 14:14 | NUR ---
Bed Alarm Bed alarm on due to patient having a history of falls and being non-compliant with calling. Patient set bed alarm off this shift attempting to transfer self to wheelchair, stating that he was going to come tell me something at the nurses station. I reinforced to use the call light when wanting to transfer.
[2018-08-27 15:30] VITALS: BP 109/69
[2018-08-27 20:00] VITALS: BP 107/60
[2018-08-28 07:45] VITALS: BP 102/67
[2018-08-28] MEDS: THIAMINE HCL 100 MG TAB PO SCH (08:40)
[2018-08-28] MEDS: PANTOPRAZOLE SOD 40 MG TABEC PO SCH (08:40)
[2018-08-28] MEDS: FOLIC ACID 1 MG TAB PO SCH (08:40)
[2018-08-28] MEDS: ENOXAPARIN 40 MG/0.4ML SYR SC SCH (08:40)
--- NOTE | 2018-08-28 11:10 | NUR ---
Occupational Therapy Impression CGA ambulation x450ft with RW. No loss of balance. V/c's to safely utilize RW. Pt with decreased carryover with RW and safety awareness. Declined further ADLs. UB ther ex with blue theraband. Encouraged pt to discuss progress and desires/needs for a safe discharge plan. Pt tangential with speech, avoiding discussion re: OT POC and discharge goals. Occupational Therapy Goals 1) Pt Darius Index of ADLs score will improve by 2 points. 2) Pt will be SBA toilet task. 3) Pt will be SBA oral care standing sinkfront. 4) Pt will be educated on appropriate adaptive equipment needs. Patient's Goal
--- NOTE | 2018-08-28 11:12 | NUR ---
ST Impression Cognitive linguistic tx focused on deficits in executive function skills (organizing, planning, self monitoring). Compensatory systems to support exec fxn deficits were entirely managed by HVAC TECHNICIAN. Pt cont w/ difficulty sustaining attention to structured tasks, reduced insight, and poor thought organization. Pt avoided participation in organization/planning tasks, very perseverative on perceived boredom, strong desire to return home. Attempts to re-direct perseverative tangents were largely unsuccessful. Pt further avoided conversation re: ST POC and overall goal of establishing safe plan for discharge from ECF environment. Despite avoidance behaviors, pt verbalized agreement to continue participation in ST POC on later date. Will continue to support.
--- NOTE | 2018-08-28 11:49 | NUR ---
Physical Therapy Impression Pt requires encouragement and education to participate in skilled PT intervention. Ambulation x250' total during session, with pt demonstrating improved bal and step length, but continues to require cues for proximity to walker and posture.Trial of 4WW, pt unsafe with ambulation with this AD. PT instruction for step ups in // bars on 2" and 5" step, x5 reps each leg. PT cues for full knee extension as the pt demonstrates poor quad strength during close chain activities.PT instruction for standing balance tasks in // bars with narrow ELISA, eyes open and closed, as well as tandem stance. Pt with drastic increase in postural sway with eyes closed. Instruction for 2x5X STS from lowered surface with arms across chest and CGA in order to improve LE strength for functional tasks. Pt fatigued as session progressed. Continue with POC. Physical Therapy Goals 1. Mod I bed mobility. 2. Mod I transfers. 3. Mod I gait x 150' with appropriate assistive device. 4. Mod I ascend/descend 1 flight of stairs. 5. Improve 5-time sit<>stand score to <30 seconds. Patient's Goals
--- NOTE | 2018-08-28 14:41 | NUR ---
Transfers Bed alarm sounded, pt was gathering laptop to transfer to chair. Pt teaching provided to wait for assistance, pt continued to transfer self. Pt was assisted with belongings, pt declined hand held call light, stated "put that back over there" pointing to the far bed rail. Pt teaching provided to use call light prior to transfers.
--- NOTE | 2018-08-28 15:04 | Medical Nutrition Therapy ---
Nutrition Anthropometrics Height (Inches): 74 Weight (Pounds): 176 BMI: 22.6 Wesley Nutrition Score: Probably Inadequate Wesley Nutrition Risk Score: 17 Dietary Referral Nutrition Risk Factors: Nutrition Risk Comment: Physical Findings Physical Appearance: WNR Skin Appearance Skin Appearance: Edema Edema Location Modifier: Both Edema Location: Foot Type of Edema: Degree of Edema: Gastrointestinal Symptoms GI Symtoms: Tube Present: Bowel Sounds: Recent Bowel Pattern: Stool Characteristics: Nutritional Diagnosis Nutritional Risk Acuity 3: Fair Appetite, Alcohol abuse, Substance abuse Past Medical History: Denies any medical hx however has hx of alcohol abuse. Nutritional Acuity: 3-Mild Energy Requirement: 2000 (MSJ) Protein Requirement: 80 (1gm/kg) Fluid Requirement: 2000 (1ml/kcal) Diet Type: Diet as Tolerated BLANCA/REG Nutrition Intervention: Cont diet as ordered, Encourage intake, HS snack Nutrition Monitoring & Eval Nutrition Goals: Eat 75-100% Meal Nutrition Follow-Up: Good Intake RD Patient Assessment Time: [address] Assessment Type: RD Re-Assessment Patient Nutrition Acuity: 3-Mild Follow Up Date: Sep 05, 2018 Nutritional Comment: 08/20 Pt s/p alcoholic seizure. Pt intake fair on med floor with several refused meals. Pt ate 100% of first meal on unit. Wt is down 4# (2.2%) from admitting wt on med unit 09/08. Will cont to monitor and encourage intake. nel 08/28/18-Pt eating well mostly 100% of a majority of meals. No new weight, will request. Will continue to monitor intakes, weight, and need for nutrition education.JOHANNA SONG Aug 28, 2018 15:04
--- NOTE | 2018-08-28 15:05 | NUR ---
Call light Pt transferred self back to bed from chair then used call light to as for assistance to restroom. When asked how pt transferred he stated "I climbed over". Pt ambulated to restroom with walker and contact guard assist, used bathroom call light for assist back to bed. Pt is sitting on edge of bed using his computer, bed alarm on r/t recent falls and inconstant use of call light.
[2018-08-28 16:38] VITALS: BP 106/68
--- NOTE | 2018-08-28 21:48 | NUR ---
Patient Transferred Self to Corridor/Bed Alarm At the beginning of this shift, I discussed with patient the rationale for the bed alarm (recent fall/non-compliant with calling). He verbalized understanding and the bed alarm was removed. He called appropriately to walk to the bathroom this afternoon. Around 2009, as I was coming out of another patient's room, patient was standing in outside of his room in the hallway, without his walker, holding onto the railing of the wall. He stated he was walking out to ask me if he needed to wear the gait belt outside of his room. After getting the walker and gait belt set up, patient and I went on a walk in the corridor. Patient stated that he went to use the bathroom by himself prior to this. He didn't appear to understand the use of the call light/gait belt/walker and necessity of those for ambulating in his room. Education provided again. Bed alarm placed.
[2018-08-29 08:25] VITALS: BP 103/68
[2018-08-29] MEDS: FOLIC ACID 1 MG TAB PO SCH (08:56)
[2018-08-29] MEDS: THIAMINE HCL 100 MG TAB PO SCH (08:56)
[2018-08-29] MEDS: PANTOPRAZOLE SOD 40 MG TABEC PO SCH (08:56)
[2018-08-29] MEDS: ENOXAPARIN 40 MG/0.4ML SYR SC SCH (08:56)
--- NOTE | 2018-08-29 09:55 | NUR ---
Physical Therapy Impression Patient ambulated to therapy and back with cuing to move away from wall as he is quite close and CGA due to impulsiveness. Patient had no LOB. Patient instructed in dynamic balance activities including - modified NBOS EO on foam square ~30 seconds - SLS on level ground no PREMIUM CANCELLATION CLERK 10 seconds each foot then 20 seconds each foot - step overs on foam square leading left and right x 5 reps each - step overs on dyno disc leading left and right x 5 reps each - SLS with PREMIUM CANCELLATION CLERK on dyno disc right and left LE x 20 seconds - dyno disc under each foot with no PREMIUM CANCELLATION CLERK ~15 seconds x 2 reps - quadriped on mat table with single arm lift, single leg lift, each side x 15 seconds - quadriped on mat table with reciprocal arm and leg out each side x 10 seconds each. Patient educated on balance and the importance of balance training. At end of session on mat table patient performed B HSS is extremely tight and would benefit from daily stretching routine and patient was educated on this. Patient left in room with bed alarm on. Physical Therapy Goals 1. Mod I bed mobility. 2. Mod I transfers. 3. Mod I gait x 150' with appropriate assistive device. 4. Mod I ascend/descend 1 flight of stairs. 5. Improve 5-time sit<>stand score to <30 seconds. Patient's Goals
--- NOTE | 2018-08-29 13:45 | NUR ---
Bed alarm Pt ambulated to room from care conference. Pt demonstrated where he has placed 2 call lights on each upper rail, states he wall call for assistance prior to transferring from bed. Pt teaching provided on removal of bed alarm and necessity to call for assistance for ambulation. Pt verbalized understanding.
--- NOTE | 2018-08-29 14:47 | NUR ---
Fall risk Signs placed in room to remind pt to call for assistance. Pt demonstrated use of call light to nurse and chose where signs would benefit him best. Pt states "I always call from the bathroom, I hear it go off then I shut if off". Pt teaching reinforced about leaving call lights on once triggered, as nurses may not know which call light is going ringing or assume someone else answered the light. Pt agreed to leave call light alarming after turning it on. Pt agrees to call for assistance prior to ambulating.
--- NOTE | 2018-08-29 14:59 | NUR ---
Occupational Therapy Impression CGA toileting standing. CGA grooming standing sinkfront. CGA sit<>stands. CGA ambulation with RW. One minor loss of balance during turn requiring Min A from OT. Ambulation on various surfaces/over thresholds. Pt requiring cues for appropriate safety and use of RW. Pt continues to require assist x1 for safety and balance with engagement in ADLs. Occupational Therapy Goals 1) Pt Darius Index of ADLs score will improve by 2 points. 2) Pt will be SBA toilet task. 3) Pt will be SBA oral care standing sinkfront. 4) Pt will be educated on appropriate adaptive equipment needs. Patient's Goal
[2018-08-29 16:40] VITALS: BP 110/64
[2018-08-30 08:15] VITALS: BP 109/68
[2018-08-30] MEDS: FOLIC ACID 1 MG TAB PO SCH (09:02)
[2018-08-30] MEDS: THIAMINE HCL 100 MG TAB PO SCH (09:02)
[2018-08-30] MEDS: PANTOPRAZOLE SOD 40 MG TABEC PO SCH (09:02)
[2018-08-30] MEDS: ENOXAPARIN 40 MG/0.4ML SYR SC SCH (09:03)
--- NOTE | 2018-08-30 10:38 | Hospitalist Progress Note ---
Subjective Progress Notes Subjective This patient was admitted for alcoholism and weakness. He has not had any acute issues. Patient Complains of: Cardiovascular: No: Chest Pain Respiratory: No: Shortness of Breath Physical Exam Vital Signs Date Time Temp Pulse Resp B/P (MAP) Pulse Ox O2 Delivery O2 Flow Rate FiO2 08/30/18 08:15 98.3 84 18 109/68 (82) 93 Room Air Intake and Output 08/30/18 07:02 Intake Total 1500 ml Balance 1500 ml Intake Oral 1500 ml # Voids 6 # Bowel Movements 2 Cardiovascular: Regular Rate and Rhythm Respiratory: Clear to Auscultation Assessment and Plan Problems: (1) Weakness Status: Acute Assessment & Plan: He continues to work with therapy. No clear disposition is currently projected. (2) Alcohol withdrawal Status: Acute Assessment & Plan: He has not had any further symptoms since transferring to extended care. He remains on thiamine and folate. (3) Alcohol related seizure Status: Acute Assessment & Plan: He has not had any recurrent seizures. (4) Hypomagnesemia Status: Acute Assessment & Plan: Resolved. (5) Hypokalemia Status: Acute Assessment & Plan: Resolved. JOSIANE HORN DO Aug 30, 2018 10:38
--- NOTE | 2018-08-30 12:19 | NUR ---
Physical Therapy Impression Pt participated in balance activities: tandem stance without UE support, tandem walking, alternating step-ups onto 6" box without UE support x10 each leg, static stance and marching on blue foam without UE support. Attempted feet together standing with eyes open and eyes closed, Pt refuses to place feet together as this is "not how you ski". Ther ex including: standing heel and toe raises x10 ea, squats x 10, quadruped with each UE/LE elevated x 10 seconds. Pt ambulated from department to room without assistive device and CGA with no major loss of balance. Pt's balance improving. Physical Therapy Goals 1. Mod I bed mobility. 2. Mod I transfers. 3. Mod I gait x 150' with appropriate assistive device. 4. Mod I ascend/descend 1 flight of stairs. 5. Improve 5-time sit<>stand score to <30 seconds. Patient's Goals
--- NOTE | 2018-08-30 12:44 | NUR ---
Occupational Therapy Impression Pt. performed UB ther exercises with weights, while seated at EOB. Pt. stating that he wants to and is ready to return home "to get stuff done that I can't do here." Continue with POC. Occupational Therapy Goals 1) Pt Darius Index of ADLs score will improve by 2 points. 2) Pt will be SBA toilet task. 3) Pt will be SBA oral care standing sinkfront. 4) Pt will be educated on appropriate adaptive equipment needs. Patient's Goal
--- NOTE | 2018-08-30 13:57 | NUR ---
Pt not calling, transferring independently Today patient has not called for assistance when he needs to toilet, was found in the bathroom by PT when they went to work with him. He also refused to sit up and talk to Dr. Beltran, when Dr. Beltran did rounds, just lay in bed with his jacket over his head and responded very irritably, "I'm trying to sleep!" to Dr. Beltran.
--- NOTE | 2018-08-30 15:06 | NUR ---
ST Impression Cognitive linguistic tx completed with continued attempts to focus on deficits in executive function skills (organizing, planning, self monitoring) and short-term recall. Pt demonstrated avoidance behaviors, reports perception that current status is consistent with baseline (hx of multiple brain injuries). Provided education re: possible increase in functional impact of cognitive linguistic deficits due to changes in physical and medical status. Pt passively participated in educational discussion, intermittent insertion of perseverative tangents. Will continue to support and modify goals if participation remains avoidant with current POC.
[2018-08-30 16:00] VITALS: BP 119/78
[2018-08-31 07:20] VITALS: BP 108/72
--- NOTE | 2018-08-31 09:10 | NUR ---
Clarification Clarified with OT regarding independence in room. Pt is not to be independent in room, continues to need assistance with transfers and ambulation. Will continue to encourage pt to call for assist and staff to continue hourly rounding.
[2018-08-31] MEDS: PANTOPRAZOLE SOD 40 MG TABEC PO SCH (09:11)
[2018-08-31] MEDS: THIAMINE HCL 100 MG TAB PO SCH (09:11)
[2018-08-31] MEDS: FOLIC ACID 1 MG TAB PO SCH (09:11)
--- NOTE | 2018-08-31 12:27 | NUR ---
Psych Consult - Confirmed with [facility] that psych consult was received and it was given to Anny Arrington.
--- NOTE | 2018-08-31 14:35 | NUR ---
Physical Therapy Impression Pt ambulated to/from therapy gym without assistive device at SBA level. Pt demonstrated an unsteady gait pattern but was able to maintain balance via stepping strategies independently. Pt ascended/descended 4 stairs x2 with 1 rail at SBA level. Re-evaluate Mckeon Balance Scale with an increase in score to 41 indicating low fall risk (range is 41-56). Pt has made significant improvements in his balance. Physical Therapy Goals 1. Mod I bed mobility. 2. Mod I transfers. 3. Mod I gait x 150' with appropriate assistive device. 4. Mod I ascend/descend 1 flight of stairs. 5. Improve 5-time sit<>stand score to <30 seconds. Patient's Goals
--- NOTE | 2018-08-31 15:10 | NUR ---
Occupational Therapy Impression Independent bed mobility. Independent UB/LB dressing. SBA ambulation x450ft with RW. No loss of balance. CGA/SBA dynamic balance tasks standing/seated in room with no assistive device. Pt with improved balance this date, safety with ADLs. Pt declining further needs at end of tx. Continue POC. Occupational Therapy Goals 1) Pt Darius Index of ADLs score will improve by 2 points. 2) Pt will be SBA toilet task. 3) Pt will be SBA oral care standing sinkfront. 4) Pt will be educated on appropriate adaptive equipment needs. Patient's Goal
[2018-08-31 16:45] VITALS: BP 110/68
[2018-09-01 07:13] VITALS: BP 105/71
[2018-09-01] MEDS: PANTOPRAZOLE SOD 40 MG TABEC PO SCH (09:07)
[2018-09-01] MEDS: THIAMINE HCL 100 MG TAB PO SCH (09:07)
[2018-09-01] MEDS: FOLIC ACID 1 MG TAB PO SCH (09:07)
--- NOTE | 2018-09-01 09:29 | NUR ---
Physical Therapy Impression Patient instructed in gait training with FWW from room to gym and back SBA with cuing slowing down with turns for safety. Patient ascended 18 stairs in stairwell with CGA with railing on left and descend 18 stairs with railing on right both step over step with CGA. Patient did well ascending and had WBOS with descending. Patient performed 5STS from chair in 19" with no BONDING MACHINE OPERATOR. Patient then performed dynamic balance activities including Tandem walking with FWW, Heel walking with FWW, Toe walking with walker, retro walking in parallel bars no BONDING MACHINE OPERATOR, SLS no BONDING MACHINE OPERATOR 8" on left LE and 14 on right LE, standing on foam square with ball toss x 10 tosses with 2 LOB. Patient asked throughout therapy when he was going to get out of here and I advised him that this is part of his discussion in case conference. Physical Therapy Goals 1. Mod I bed mobility. 2. Mod I transfers. 3. Mod I gait x 150' with appropriate assistive device. 4. Mod I ascend/descend 1 flight of stairs. 5. Improve 5-time sit<>stand score to <30 seconds. Patient's Goals
[2018-09-01 09:33] VITALS: BP 110/43
--- NOTE | 2018-09-01 13:17 | NUR ---
SW attempted to complete 14-day MDS with pt; however, he declined to participate stating he wanted to sleep. SW completed staff assessment for parts C, D, E, and Q. C: short term memory problems noticed by staff, concerns with his inattention and disorganized thinking fluctuating; D: 07, E: no concerns, Q: referrals in process pending pt's PT/OT progress with mobility, was wanting to DC to IP alcohol rehab program, but will need to improve mobility to be appropriate. Hoang is doing eval on pt starting today. COLE will continue to follow for mobility progress and DC plans.
--- NOTE | 2018-09-01 13:51 | NUR ---
Occupational Therapy Impression Independent bed mobility in/out. Independent toileting. Independent grooming standing sink front. SBA ambulation x450ft with no AD. Incorporating dynamic balance challenges into functional mobility with SBA/[place]. No loss of balance. Pt has met initial skilled OT goals. Encouraged pt to discuss personal goals/plan for discharge. Pt avoidant with conversation, tangential. Will follow to address appropriate goals for safe discharge. Occupational Therapy Goals 1) Pt Darius Index of ADLs score will improve by 2 points. 2) Pt will be SBA toilet task. 3) Pt will be SBA oral care standing sinkfront. 4) Pt will be educated on appropriate adaptive equipment needs. Patient's Goal
--- NOTE | 2018-09-01 15:27 | NUR ---
Spoke with Cecilio Corcoran from [facility] who evaluated the resident this afternoon. She reported that he would be [facility] Detained and transferred to [facility] for ongoing psychiatric care. Tk Andrews NP notified for discharge orders, Tk Corbett, [employer] Director notified.
--- NOTE | 2018-09-01 16:25 | Hospitalist Depart ---
Discharge Summary Reason for Hosp/Final Diag: (1) Alcohol withdrawal Status: Acute Hospital Course & Plan: He has not had any further symptoms since transferring to extended care. He remains on thiamine and folate. He will be transferred to [facility] unit. He has been accepted by Dr. Chahal. (2) Weakness Status: Acute Hospital Course & Plan: He has continued to work with therapy. He has improved. He has been using walker to ambulate. (3) Alcohol related seizure Status: Acute Hospital Course & Plan: He has not had any recurrent seizures. (4) Hypomagnesemia Status: Acute Hospital Course & Plan: Resolved. (5) Hypokalemia Status: Acute Hospital Course & Plan: Resolved. Departure Latest Vital Signs Vital Signs 09/01/18 09/01/18 07:13 09:20 Temp 98.5 Pulse 74 Resp 16 B/P (MAP) 105/71 (82) Pulse Ox 95 O2 Delivery Room Air Weight (Pounds): 163 Condition: Improved Discharge: [facility] Discharge Instructions Home Meds No Active Prescriptions or Reported Meds Diet: Regular Activity: As Tolerated, With Walker Venous Thromboembolism Antithrombotics Is Pt On Any Antithrombotics?: No SANTI EDWARDP Sep 01, 2018 16:25
--- NOTE | 2018-09-01 17:17 | NUR ---
belongings in safe Anny was informed that pt has something in the hospital safe
--- NOTE | 2018-09-04 09:06 | OT ECF NOTE ---
Type of Note: Discharge Note Primary Medical Diagnosis: Generalized weakness s/p alcohol withdraw and alcohol related seizure Occupational Therapy Evaluation Date: 08/21/18 SUBJECTIVE: Prior Hospitalization: [facility] 08/08/18-08/19/18 Prior Level of Function: Independent with ADLs/IADLs Prior Living Status: Bi-level house Alone Community Services: No known needs Home Accessibility: Stairs with rails All needs on one level Equipment Owned: None Medical Complications/Past Medical History: Please refer to EMR Psychosocial Support: Details unknown-Family in [place] Pain Scale (0-10): None reported at time of evaluation OBJECTIVE: Strength: MMT: Right Left Shoulder Flexion WFL WFL Elbow Flexion WFL WFL Wrist Extension WFL WFL 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 WFL (5= normal, 4= good, 3= fair, 2= poor, 1= trace) ROM: Both upper extremities, WFL Sensation: No paraesthesia reported Functional Transfer: Assistive Device: Front wheeled walker or no assistive device Transfer Ability: SBA/CGA ADL: Upper body dressing: Assistive device: None Upper body dressing ability: Independent Lower body dressing: Assistive device: None Lower body dressing ability: Independent Toileting: Assistive device: None Toileting ability: Independent Grooming/hygiene: Assistive device: None Grooming ability: Independent Bathing: Assistive device: Shower chair Bathing ability: Supervision Standardized Assessment: Darius Index of Activities of Daily Livin20 upon initial evaluation (08/21/18). 17/20 upon discharge (09/04/18). Assessment: Oscar presented to [facility] with decreased balance requiring physical assist to maintain standing balance and assist to safely complete ADLs. He has met all skilled OT goals and has transferred to [facility] for further skilled care. Short Term Goals: 1) Pt Darius Index of ADLs score will improve by 2 points. GOAL MET 2) Pt will be SBA toilet task. GOAL MET 3) Pt will be SBA oral care standing sinkfront. GOAL MET 4) Pt will be educated on appropriate adaptive equipment needs. 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 See EMR for [facility] medical admission for details regarding speech cognitive evaluation and recommendation for 06/09 supervision. Patient Goals: Unsure Rehabilitation Prognosis: Fair Barriers to Discharge: Poor progression, Decreased safety awareness PLAN: The patient discharged to [facility] for further skilled care. Thank you for this referral. If you have any questions, concerns, or comments about this report or plan, please contact me at . Lisandra Ch MS, OTR/L Occupational Therapist [place]
--- NOTE | 2018-09-04 14:01 | PT ECF NOTE ---
Type of Note: Discharge Summary Primary Medical Diagnosis: ETOH withdrawal, weakness Physical Therapy Discharge Date: 09/01/2018 SUBJECTIVE: Prior Hospitalization: [facility] Med/Surg for ETOH withdrawal and associated seizure Prior Level of Function: Independent with functional mobility and ADLs Prior Living Status: Apartment, Alone Community Services: Independent Home Accessibility: 15 Stairs with rails Equipment Owned: none Medical Complications/Past Medical History: TBI, see EMR for other Psychosocial Support: see social work note Pain Scale (0-10): Pt states he "hurts all over". OBJECTIVE: Bed Mobility: Priyank Transfers: SBA Gait: 250-400 with no AD, SBA/CGA Stairs: 18 stairs with CGA ASSESSMENT: Pt demonstrated increased tolerance to functional mobility and improved balance as he progressed with PT interventions. It was recommended that the pt receive assistance with all mobility d/t continued impulsivity and high risk of falls. Pt was emergently detained and discharged to [facility]. Problem List/Current Limitations: Decreased activity tolerance, Decreased strength, Decreased coordination, Decreased balance, Generalized weakness, Poor safety awareness, Memory deficits, Decreased problem solving Short Term Goals: 1. Mod I bed mobility. (met) 2. Mod I transfers.(not met) 3. Mod I gait x 150' with appropriate assistive device. (not met) 4. Mod I ascend/descend 1 flight of stairs. (not met) 5. Improve 5-time sit<>stand score to <30 seconds. 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 Thank you for this referral. If you have any questions, concerns, or comments about this report or plan, please contact me at . Shona Wilkerson, PT, DPT [place]
== END 2018-09-01 17:11 | DRG 948 ==
LOC: ECF 13:40
PROVIDERS: ADMIT Family Medicine; ATTEND Family Medicine
DX: R53.1 Weakness (principal); F10.20 Alcohol dependence, uncomplicated
CPT/HCPCS: 36415; 82040; 82247; 82310; 82374; 82435; 82565; 82947; 84075; 84132; 84155; 84295; 84450; 84460; 84520; 86580; 97162; 97166; J1650

== ENCOUNTER 2018-09-01 17:13 | Inpatient (IN) | payer OTHER ==
[2018-08-09 11:29] VITALS: Wt 73.9 kg
[2018-09-01] MEDS: QUEtiapine FUM 25 MG TAB PO SCH (20:59)
[2018-09-01] MEDS ORDERED: QUEtiapine FUM 25 MG TAB PO PRN (21:00)
[2018-09-01 21:20] VITALS: BP 113/78
--- NOTE | 2018-09-01 21:24 | BHS - Psychiatric Evaluation ---
ER - Title 25 MHE Evaluation Title 25 Evaluation Patient Detained By: Therapist (Anny Arrington. Herbert, Rodrigo) Referral Source: Professional: Anny Arrington M.S., Rodrigo, SherronT Date Patient Detained: Sep 01, 2018 Time Patient Detained: 16:15 Date Senior Living Expires: Sep 06, 2018 Time Senior Living Expires: 16:15 Legal Status: Police Hold: No Legal Status: Residence: [facility] Resident, State Resident Assessment Data Provided By: Patient, Other Source ([facility] and [facility] clinical professionals) HPI/ROS: Patient is detained by lead [facility] therapist Anny Arrington because he is unable to care for himself. He apparently spent some time on the Extended Care Facility of the hospital to regain functionality and ability to care for himself. Nursing staff there needed to assist him, and reported he is not ready to discharge to home. The Alcohol Use Disorder the patient experiences is profound and he reports he has had multiple seizure and brain injuries. A "MOCA" test given on 09/01/2018 indicated problems with patient's cognitive function. Admit due to SI or Attempt: No Suicide Plan: No Plan Current Suicide Plan Patient denies any suicidality. 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 He seems upset that he has lost short-term memory.) Is Collateral Info Reliable: Yes Mental Status Exam General Appearance: Casual, Well Groomed, Good Eye Contact, Cooperative, Polite, Good Interaction Speech: Clear Mood: Euthymic Affect: Full and Appropriate Thought Process: Goal Directed (Wants to go home, but has no plan for caring for self, says he "lives day by day. I don't plan.") Thought Content: Suicidal Ideation (Denies) Memory: Immediate, Other (Patient does not remember conversations he had with this therapist two weeks ago. he acknowledges he has lost his short-term memory related to alcoholism.) Insight Judgment: Poor Hallucinations: Denies Delusions: Denies Current Risk & History Current Dangerous Risk Assessm: Self-Injurious Behaviors (Seizures related to profound alcoholism), Protective Factors (Patient is congenial and shows signs of being gifted interpersonally even though he is experiencing some cognive dysfunction related to seizures. ), Ubable to Care for Self Past Dangerous Risk Assessm: Self-Injurious Behaviors (required a safe detox in 2016 because of seizurres related to trying to stop drinking on his own. At that time he was unable to stop drinking on his own. His alcohol related impairment seems to have decompensated since that time.) Sequelae of Substance Abuse: Patient reports needing to go to [facility] residential treatment, and having difficulty afterwards maintaining sobriety related to a break-up with a girlfriend. Previous Suicide Attempt: No Previous Attempt Previous Psychiatric Illness: Yes (patient was hospitalized at [facility] in 2016) Previous Psychiatric Treatment: Yes Risk Assessment & Disposition Evaluated Risk Assessment: Risk to patient is high. He is currently still experiencing cognitive dysfunction related to alcoholic seizures that were quite severe. His family's concern is that he cannot survive without residential treatment as he has a history of alcohol use disorder that is life threatening and they do not feel able to respond appropriately to save his life. Impression: Primary Impression: Alcohol related seizure Additional Impression: Alcohol abuse Meets Mental Illness Req.: Yes Meets Dangerousness Req.: Yes (Inability to care for himself, cognitive dysfunction. Said to this interviewer he thought he had been hospitalized since "May." He has been hospitalized in July and August.) Emergency Senior Living to be: Upheld Decision Comment: Risk to patient is high. He is currently still experiencing cognitive dysfunction related to alcoholic seizures that were quite severe. His family's concern is that he cannot survive without residential treatment as he has a history of alcohol use disorder that is life threatening and they do not feel able to respond appropriately to save his life. Date of Decision: Sep 01, 2018 Time of Decision: 21:16 Patient is Medically Stable at: Yes Disposition: [facility] Problem Qualifiers NIRK,MEGHAN FINANCE ANALYST Sep 01, 2018 21:24
[2018-09-02 06:24] VITALS: BP 95/58
[2018-09-02] MEDS: FOLIC ACID 1 MG TAB PO SCH (08:22)
[2018-09-02] MEDS: THIAMINE HCL 100 MG TAB PO SCH (08:22)
[2018-09-02 13:29] VITALS: BP 115/69
[2018-09-02 19:30] VITALS: BP 121/75
[2018-09-02] MEDS: QUEtiapine FUM 25 MG TAB PO SCH ×2 (20:31→23:57)
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
[2018-09-03 06:04] VITALS: BP 115/65
[2018-09-03] MEDS: FOLIC ACID 1 MG TAB PO SCH (08:25)
[2018-09-03] MEDS: THIAMINE HCL 100 MG TAB PO SCH (08:25)
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
--- NOTE | 2018-09-03 18:25 | BHS - Psychiatric Evaluation ---
Title 25 Evaluation Hearing Report: 109 Date of Report: Sep 03, 2018 Examiner: Tina. Jose Luis Mcclain M.S., Rodrigo Patient Detained By: Therapist (Anny Espino M.S., L.P.C., LHarrisonAHarrison [place]) 24hr Mental Health Eval By: Tina. Jose Luis Mcclain M.S., L.P.C. Date Patient Detained: Sep 01, 2018 Time Patient Detained: 16:15 Date Long-Term Expires: Sep 06, 2018 Time Long-Term Expires: 16:15 Legal Status: Police Hold: No Legal Status: Residence: County Resident, State Resident Referral Source: Professional: Anny Arrington M.S., Rodrigo, Yunior Assessment Data Provided By: Patient, Other Source ([facility] and [facility] clinical professionals) Chief Complaint: Patient was brought to the hospital by an unknown person. His neighbors and mother were looking for him because they are aware he recently had a DUI and struggles with severe Alcohol Use Disorder and related seizures. While being treated at [facility] it became apparent his cognitive dysfunction is profound and he is unable to make plans to take care of himself. He has poor orientation to time and situation. For the last two days he has believed he has been at [facility] since May or June. In reality, he was hospitalized in late July and then again in early August. He says he wants to go to residential treatment for a substance use disorder but he does not seem to be able to have logical planning to help him to get to residential treatment. Currently his cognitive impairment keeps him from even writing a letter to a treatment facility to express motivation for treatment. Without a letter like this, he is unlikely to be accepted to treatment. HPI/ROS: Patient was detained by therapist Anny Young who assessed and noted patient's cognitive impairment. Patient has illogigal ideas about how he can have his bag packed and go to treatment, not having applied to any treatment centers. Patient's most recent DUI is an indication that he cannot safely transport himself anywhere and the traumtic katharina injuries related to alcholic seizures put patient at further inabilty to care for himself and likely decompensate. 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 He is not able to care for himself. He is bewildered about how he arrived at the hospital this last time. He is poorly oriented to time, believing he has been hospitalized since May or June. In reality , he was hospiatlized in late July and then again in early August. His recent DUI is indication that he is impaired. Also the seizures he experiences if he tries to stop drinking are life threatening. Recommendations of S Team: The patient "evidences behavior manifested by recent acts or omissions that, due to mental illness, the patient is unable to satisfy basic needs for nourishment, essential medical care, group home, or safety so that a substantial probability exists that , serious physical injury, serious physical debilitation, serious mental debilitation, destabilization from lack of or refusal to take prescribed psychotropic medications for a diagnosed condition or serious physical disease will imminently ensue, unless the individual receives prompt and adequate treatment for this mental illness" as evidenced by: Patient's recent seizures have resulted in traumatic brain injuries. As a result he is unable to develop a plan to provide for his basic needs. Probable decompens ation upon release is related to patient being unable to think logically and be fully oriented to his needs and how to care for himself. 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 He believed he was transported to the hospital by [facility], but he was not. Patient acknowledges he has memory loss that is profound as well as difficulty planning for even his most basic needs. Current Dangerous Risk Assess: Current Suicide Ideation (Denies), Self- Injurious Behaviors (Drinks to black out drunk as well as has alcohol related seizures and head trauma within those seizures.) Current Risk Summary: Risk to patient is severe. He is not able to care for himself. He is bewildered about how he arrived at the hospital this last time. He is poorly oriented to time, believing he has been hospitalized since May or June. In real ity , he was hospitalized in late July and then again in early August. His recent DUI is indication that he is impaired. Also the seizures he experiences if he tries to stop drinking are life threatening. Past Dangerous Risk Assess: Self-Injurious Behaviors (required a safe detox in 2016 because of seizurres related to trying to stop drinking on his own. At that time he was unable to stop drinking on his own. His alcohol related impairment seems to have worsened since that time.) BHS - Exam Physical Exam Vital Signs Vital Signs 09/02/18 09/03/18 13:29 06:04 Temp 97.9 Pulse 95 Resp 17 B/P (MAP) 115/65 (82) Pulse Ox 93 O2 Delivery Room Air Mental Status Exam General Appearance: Casual, Well Groomed, Good Eye Contact, Cooperative, Polite, Good Interaction Speech: Clear Mood: Euthymic Affect: Full and Appropriate Thought Process: Other (quite circumstantial to tangential) Thought Content: No Suicidal Ideation, No Homicidal Ideation, No Delusions, No Auditory Halllucinations, No Visual Hallucinations, No Thought Broadcasting, No Ideas of Reference, No Obsessions, No Compulsions, No Other Sensorium: Clear Cognition: Alert & Oriented-Person, Alert & Oriented-Place, Alert & Oriented- Time, Hmzpi-Vepovqsn-Bzyxyiyvs Memory: Remote (poor short term recall, unable to manipulate information), Other (Patient does not remember conversations he had with this therapist two weeks ago. he acknowledges he has lost his short-term memory related to alcoholism.) Intelligence: Average Insight Judgment: Poor Care & Behavior on Unit Treatment Team Participation: Poor participation in interviews and refusal to do group therapy. Conversing may tax him a great deal since his cognitive impairment is profound. Group Attendance: Refuses. Involvement in Tx Planning: Has not yet written a letter to an inpatient facility to demostrate his motivation to receive treatment. He likely cannot be accepted until he writes a letter conveying his wish for treatment. Title 25 History Psychiatric History: Notable that when patient is being interviewed about the doctor related to his basic demographics, he repeatedly tells her to "Guess," or refuses to answer. It seems possible to this observer that patient is defensive about being unable to answer even very basic information about himself. He reports he saw Laney Nicole about a month ago for "Bipolar Mood Disorder." He also says he went to [facility] 2 or three years ago. His mother said he was drinking severely after that residential treatment. She said she thought he had been drinking as soon as 1 week after discharge. Patient was hospitalized in September of 2015 for a voluntary detox from alcohol but left against medical advice. he says he began drinking at 4-3 years of age. He states he does not know how to envision a life sober. Family Psychiatric Hx: Does not describe any other family psychiatric problems. Social History: The patient was born in [place], [place], to parents who were at the time. The family moved to [place], and he graduated from [employer]. He attended college in [place] for one year and then came to the [employer] where he earned a Bachelor of Science in Chemical Engineering. He has worked in the [employer] and at a [employer] in [place]. At age 31, he got an HERIBERTO on line, and he worked for [employer] in [place] for two years. He has been living back in [place] and unemployed since the age of 39. He lives alone in an apartment. He reports he has a reasonably close relationship with his mother, who lives in [place], [place]." He says he recently broke up with a woman who lives nearby him and he says he made the mistake of getting into this relationship before he was able to establish some sobriety and good self-care. Previous Detentions: No noted previous detentions. Prior Hospitalizations: Hospitalized at [facility] September 2015 for detox, left [facility] Hospitalized from August 08 to early August for an alcohol related seizure and subsequent traumatic brain injury. Patient says he is aware of about 7 alcohol related seizures. He also acknowledges cognitive decline and cognitive damage related to profound alcoholism. Drug & Alcohol Use: Patient says he used marijuana very briefly in high school and "did not like it." Says he used cocaine "for awhile" and stopped on his own. Patient says his alcohol use disorder has prevented him from working for the past 4 years. He does not have disability support. Age of Onset/Duration: Reports he began drinking at age 2 or 3, "first sip," patient says. Current Living Situation: Living in an apartment. Neighbors became concerned about him because the are aware of his excessive drinking and called a welfare check. His mother asked for him to be entered as a missing person. Employment Issues: Patient reports he has not been employed for the last 4 years. Legal Concerns: Recent DUI Patient Strengths: Patient seems to enjoy connecting with others, and has some fond reminiscing about times when he was able to work. Current Medical Data: Rule out alcohol related dementia. Earlier this month, patient was admitted to the [facility] Facility ([facility]) because he lost the ability to walk on his own. Patient has since regained the ability to walk since he underwent a safe and complete detox from alcohol. His detox required medication to prevent a possible fatal withdrawal from alcohol. MEGHAN MCCLAIN [facility] Sep 03, 2018 17:42
[2018-09-03 20:13] VITALS: BP 110/78
[2018-09-03] MEDS: QUEtiapine FUM 25 MG TAB PO SCH (20:56)
[2018-09-04 05:54] VITALS: BP 116/74
[2018-09-04] MEDS: THIAMINE HCL 100 MG TAB PO SCH (08:32)
[2018-09-04] MEDS: QUEtiapine FUM 25 MG TAB PO SCH ×2 (08:32→20:28)
[2018-09-04] MEDS: FOLIC ACID 1 MG TAB PO SCH (08:32)
[2018-09-04 11:41] VITALS: BP 97/60
--- NOTE | 2018-09-04 13:39 | BHS Progress Note ---
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 Patient notably also not able to recognize two staff members that he had met two to three days before. Will continue to work to have patient enter rehab. Parents are supportive and present today. Will continue detainment. Further lab work today. Suicidal Ideation: None Homicidal Ideation: None [facility] - Objective Physical Exam Vital Signs Vital Signs Date Time Temp Pulse Resp B/P (MAP) Pulse Ox O2 Delivery O2 Flow Rate FiO2 09/04/18 11:41 99.5 93 97/60 (72) 95 Room Air 09/04/18 05:54 15 Muscle Strength and Tone: WNL Gait and Station: Other (wide based gait) [facility] Medications Reviewed: Side Effects, Benefits of Medication, Risks Allergies Reviewed: Yes Mental Status Exam General Appearance: Casual, Well Groomed, Good Eye Contact (fair), Cooperative, Polite, Good Interaction Speech: Clear, Spontaneous, Normal Rate, Normal Rhythm, Normal Volume, Normal Tone Mood: Euthymic (irritated at times) Affect: Full and Appropriate Thought Process: Other (quite circumstantial to tangential) Thought Content: No Suicidal Ideation, No Homicidal Ideation, No Delusions, No Auditory Halllucinations, No Visual Hallucinations, No Thought Broadcasting, No Ideas of Reference, No Obsessions, No Compulsions, No Other Sensorium: Clear Cognition: Alert & Oriented-Person, Alert & Oriented-Place, Alert & Oriented- Time, Afqyy-Ekofwsef-Oczkxdydx Memory: Remote (poor short term recall, unable to manipulate information), Other (Patient does not remember conversations he had with this therapist two weeks ago. he acknowledges he has lost his short-term memory related to alcoholism.) Intelligence: Average (historically) Insight Judgment: Poor (limited, due to cognitive limitations. 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 lab work today. 2. encourage entrance into rehab 3. schedule court hearing. GANGA MOHAN MD Sep 04, 2018 13:39
[2018-09-04 13:43] LABS: PLATELET COUNT, AUTOMATED 328 K/uL (150-450)
[2018-09-04] MEDS: NICOTINE POLACRILEX 2 MG GUM PO PRN (15:47)
[2018-09-04 20:04] VITALS: BP 129/81
[2018-09-05 06:24] VITALS: BP 91/51
[2018-09-05] MEDS: THIAMINE HCL 100 MG TAB PO SCH (08:34)
[2018-09-05] MEDS: FOLIC ACID 1 MG TAB PO SCH (08:34)
--- NOTE | 2018-09-05 10:50 | BHS Progress Note ---
S - Subjective Progress Notes Subjective Patient noted to write AMA discharge letter last PM, although he was informed it would be irrelevant. Hearing set today, for 10 day extension to pursue further time to rehabilitate physically and cognitively and hopefully persue rehab for alcoholism, in this patient who is now believed to be homeless, with no f inances, and suffering significant cognitive decline, that would impair his ability to attend to activities of daily living, and likely impair his ability to abstain from alcohol. Patient was able to remember meeting this provider before, but unable to remember if it was "yesterday or the day before". Patient verbalizes self awareness regarding short term memory deficits, but attributes this to history of head injury, and ignores impact alcohol could have. No other concerns. Suicidal Ideation: None Homicidal Ideation: None [facility] - Objective Physical Exam Vital Signs Hematology Test 09/04/18 13:11 White Blood Count 9.9 k/uL (4.5-11.0) Red Blood Count 3.93 M/uL (4.00-5.60) L Hemoglobin 13.4 g/dL (14.0-18.0) L Hematocrit 40.0 % (42.0-52.0) L Mean Corpuscular Volume 101.7 fL (80.0-96.0) H Mean Corpuscular Hemoglobin 34.1 pg (26.0-33.0) H Mean Corpuscular Hemoglobin Concent 33.5 g/dL (32.0-36.0) Red Cell Distribution Width 12.4 % (11.5-14.5) Platelet Count 328 K/uL (150-450) Mean Platelet Volume 7.8 fL (7.2-11.1) Neutrophils (%) (Auto) 63.8 % (39.4-72.5) Lymphocytes (%) (Auto) 19.7 % (17.6-49.6) Monocytes (%) (Auto) 13.1 % (4.1-12.4) H Eosinophils (%) (Auto) 2.4 % (0.4-6.7) Basophils (%) (Auto) 1.0 % (0.3-1.4) Nucleated RBC Relative Count (auto) 0.1 /100WBC Neutrophils # (Auto) 6.3 K/uL (2.0-7.4) Lymphocytes # (Auto) 2.0 K/uL (1.3-3.6) Monocytes # (Auto) 1.3 K/uL (0.3-1.0) H Eosinophils # (Auto) 0.2 K/uL (0.0-0.5) Basophils # (Auto) 0.1 K/uL (0.0-0.1) Nucleated RBC Absolute Count (auto) 0.01 K/uL Chemistry Test 09/04/18 13:11 Sodium Level 138 mmol/L (137-145) Potassium Level 4.2 mmol/L (3.5-5.0) Chloride Level 107 mmol/L (98-107) Carbon Dioxide Level 19 mmol/L (22-30) Blood Urea Nitrogen 7 mg/dl (9-21) Creatinine 0.50 mg/dl (0.66-1.25) Glomerular Filtration Rate Calc > 60.0 Random Glucose 129 mg/dl (75-110) Calcium Level 9.2 mg/dl (8.4-10.2) Magnesium Level 1.6 mg/dl (1.7-2.2) Total Bilirubin 1.8 mg/dl (0.2-1.3) Aspartate Amino Transf (AST/SGOT) 140 U/L (0-35) Alanine Aminotransferase (ALT/SGPT) 65 U/L (0-56) Alkaline Phosphatase 99 U/L (0-126) Ammonia 34 UMOL/L (9-33) Total Protein 7.3 g/dl (6.3-8.2) Albumin 3.7 g/dl (3.5-5.0) Vital Signs Date Time Temp Pulse Resp B/P (MAP) Pulse Ox O2 Delivery O2 Flow Rate FiO2 09/05/18 06:24 98.1 69 15 91/51 (64) 91 Room Air Muscle Strength and Tone: WNL (reduced) Gait and Station: Other (wide based gait) [facility] Medications Reviewed: Side Effects, Benefits of Medication, Risks Allergies Reviewed: Yes Mental Status Exam General Appearance: Casual, Well Groomed, Good Eye Contact (fair), Cooperative, Polite, Good Interaction; No Tearful, No Psychomotor Agitation, No Psychomotor Retardation Speech: Clear, Spontaneous, Normal Rate, Normal Rhythm, Normal Volume, Normal Tone; No Slurred, No Garbled Mood: Euthymic (irritated at times) Affect: Full and Appropriate; No Tearful, No Anxious, No Agitated Thought Process: Goal Directed (" I need to get to work"); No Loose Associations, No Flight of Ideas Thought Content: No Suicidal Ideation, No Homicidal Ideation, No Delusions, No Auditory Halllucinations, No Visual Hallucinations, No Thought Broadcasting, No Ideas of Reference, No Obsessions, No Compulsions, No Other Sensorium: Clear Cognition: Alert & Oriented-Person, Alert & Oriented-Place, Alert & Oriented- Time, Pztlb-Bqjqansy-Opzuelcbd Memory: Immediate (deficits exist), Recent, Remote; No Other Intelligence: Average (historically) Insight Judgment: Poor (limited, due to cognitive limitations. and high probability of relapse. 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 hearing today. 2. monitor lab work 3. encourage entrance into rehab. GANGA MOHAN MD Sep 05, 2018 10:50
[2018-09-05 12:57] VITALS: BP 102/81
[2018-09-05] MEDS: QUEtiapine FUM 25 MG TAB PO SCH (20:44)
[2018-09-05 21:19] VITALS: BP 115/77
[2018-09-06 05:38] VITALS: BP 92/49
[2018-09-06] MEDS: THIAMINE HCL 100 MG TAB PO SCH (08:36)
[2018-09-06] MEDS: FOLIC ACID 1 MG TAB PO SCH (08:36)
--- NOTE | 2018-09-06 09:59 | BHS Progress Note ---
[facility] - Subjective Progress Notes Subjective Patient continues to slowly improve, both physically and mentally. Cognitive limitations remain evident. Appetite, and sleep good, mildly irritated at times, but remaining overall cooperative. Will await court notice concerning hearing later this week after it was postponed yesterday. Outpatient commitment could possibly be an option as well. No other concerns today. Suicidal Ideation: None Homicidal Ideation: None [facility] - Objective Physical Exam Vital Signs Vital Signs Date Time Temp Pulse Resp B/P (MAP) Pulse Ox O2 Delivery O2 Flow Rate FiO2 09/06/18 05:38 97.4 81 15 92/49 (63) 92 Room Air Hematology Test 09/04/18 13:11 White Blood Count 9.9 k/uL (4.5-11.0) Red Blood Count 3.93 M/uL (4.00-5.60) L Hemoglobin 13.4 g/dL (14.0-18.0) L Hematocrit 40.0 % (42.0-52.0) L Mean Corpuscular Volume 101.7 fL (80.0-96.0) H Mean Corpuscular Hemoglobin 34.1 pg (26.0-33.0) H Mean Corpuscular Hemoglobin Concent 33.5 g/dL (32.0-36.0) Red Cell Distribution Width 12.4 % (11.5-14.5) Platelet Count 328 K/uL (150-450) Mean Platelet Volume 7.8 fL (7.2-11.1) Neutrophils (%) (Auto) 63.8 % (39.4-72.5) Lymphocytes (%) (Auto) 19.7 % (17.6-49.6) Monocytes (%) (Auto) 13.1 % (4.1-12.4) H Eosinophils (%) (Auto) 2.4 % (0.4-6.7) Basophils (%) (Auto) 1.0 % (0.3-1.4) Nucleated RBC Relative Count (auto) 0.1 /100WBC Neutrophils # (Auto) 6.3 K/uL (2.0-7.4) Lymphocytes # (Auto) 2.0 K/uL (1.3-3.6) Monocytes # (Auto) 1.3 K/uL (0.3-1.0) H Eosinophils # (Auto) 0.2 K/uL (0.0-0.5) Basophils # (Auto) 0.1 K/uL (0.0-0.1) Nucleated RBC Absolute Count (auto) 0.01 K/uL Chemistry Test 09/04/18 13:11 Sodium Level 138 mmol/L (137-145) Potassium Level 4.2 mmol/L (3.5-5.0) Chloride Level 107 mmol/L (98-107) Carbon Dioxide Level 19 mmol/L (22-30) Blood Urea Nitrogen 7 mg/dl (9-21) Creatinine 0.50 mg/dl (0.66-1.25) Glomerular Filtration Rate Calc > 60.0 Random Glucose 129 mg/dl (75-110) Calcium Level 9.2 mg/dl (8.4-10.2) Magnesium Level 1.6 mg/dl (1.7-2.2) Total Bilirubin 1.8 mg/dl (0.2-1.3) Aspartate Amino Transf (AST/SGOT) 140 U/L (0-35) Alanine Aminotransferase (ALT/SGPT) 65 U/L (0-56) Alkaline Phosphatase 99 U/L (0-126) Ammonia 34 UMOL/L (9-33) Total Protein 7.3 g/dl (6.3-8.2) Albumin 3.7 g/dl (3.5-5.0) Muscle Strength and Tone: WNL (reduced) Gait and Station: Other (wide based gait) [facility] Medications Reviewed: Side Effects, Benefits of Medication, Risks Allergies Reviewed: Yes Mental Status Exam General Appearance: Casual, Well Groomed, Good Eye Contact (fair), Cooperative, Polite, Good Interaction; No Tearful, No Psychomotor Agitation, No Psychomotor Retardation Speech: Clear, Spontaneous, Normal Rate, Normal Rhythm, Normal Volume, Normal Tone; No Slurred, No Garbled Mood: Euthymic (irritated at times) Affect: Full and Appropriate; No Tearful, No Anxious, No Agitated Thought Process: Goal Directed (" I need to get to work"); No Loose Associations, No Flight of Ideas Thought Content: No Suicidal Ideation, No Homicidal Ideation, No Delusions, No Auditory Halllucinations, No Visual Hallucinations, No Thought Broadcasting, No Ideas of Reference, No Obsessions, No Compulsions, No Other Sensorium: Clear Cognition: Alert & Oriented-Person, Alert & Oriented-Place, Alert & Oriented- Time, Qocoh-Tmzfldnk-Duatszzjd Memory: Immediate (deficits exist), Recent, Remote; No Other Intelligence: Average (historically) Insight Judgment: Poor (limited, due to cognitive limitations. and high probability of relapse. 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 continue treatment 2. await court direction concerning hearing. 3. encourage entrance into rehab. GANGA MOHAN MD Sep 06, 2018 09:59
[2018-09-06 14:17] VITALS: BP 101/53
[2018-09-06] MEDS: QUEtiapine FUM 25 MG TAB PO SCH (20:33)
[2018-09-06 21:59] VITALS: BP 122/90
[2018-09-07 06:18] VITALS: BP 119/72
[2018-09-07 07:04] LABS: PLATELET COUNT, AUTOMATED 279 K/uL (150-450)
[2018-09-07] MEDS: THIAMINE HCL 100 MG TAB PO SCH (08:16)
[2018-09-07] MEDS: FOLIC ACID 1 MG TAB PO SCH (08:16)
--- NOTE | 2018-09-07 08:45 | BHS Progress Note ---
[facility] - Subjective Progress Notes Subjective Patient doing well on the unit overall, remains irritated at times, but only mildly so, and not showing any physical or verbal aggression toward staff. Labs continue to show improvement with hepatic function, and decrease in ammonia. Improvement in ambulation and cognition continues. Hearing for 10 day extension now set for 11 September. Will look at hopeful continued improvement in ability to function, with possibility of outpatient commitment, as patient is refusing rehab. Suicidal Ideation: None Homicidal Ideation: None [facility] - Objective Physical Exam Vital Signs Vital Signs Date Time Temp Pulse Resp B/P (MAP) Pulse Ox O2 Delivery O2 Flow Rate FiO2 09/07/18 06:18 98.0 74 16 119/72 (88) 95 Room Air Muscle Strength and Tone: WNL (reduced) Gait and Station: Other (wide based gait) [facility] Medications Reviewed: Side Effects, Benefits of Medication, Risks Allergies Reviewed: Yes Mental Status Exam General Appearance: Casual, Well Groomed, Good Eye Contact (fair), Cooperative, Polite, Good Interaction; No Tearful, No Psychomotor Agitation, No Psychomotor Retardation Speech: Clear, Spontaneous, Normal Rate, Normal Rhythm, Normal Volume, Normal Tone; No Slurred, No Garbled Mood: Euthymic (irritated at times) Affect: Full and Appropriate; No Tearful, No Anxious, No Agitated Thought Process: Goal Directed (" I need to get to work"); No Loose Associations, No Flight of Ideas Thought Content: No Suicidal Ideation, No Homicidal Ideation, No Delusions, No Auditory Halllucinations, No Visual Hallucinations, No Thought Broadcasting, No Ideas of Reference, No Obsessions, No Compulsions, No Other Sensorium: Clear Cognition: Alert & Oriented-Person, Alert & Oriented-Place, Alert & Oriented- Time, Twzmb-Fjxvwafd-Cnsmvkfxm Memory: Immediate (deficits exist), Recent, Remote; No Other Intelligence: Average (historically) Insight Judgment: Poor (limited, due to cognitive limitations. and high probability of relapse. 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 continue treatment. 2. await [address] hearing. GANGA MOHAN MD Sep 07, 2018 08:45
[2018-09-07 16:45] VITALS: BP 108/78
[2018-09-07] MEDS: QUEtiapine FUM 25 MG TAB PO SCH (21:38)
[2018-09-08 06:25] VITALS: BP 113/76
[2018-09-08] MEDS: THIAMINE HCL 100 MG TAB PO SCH (08:19)
[2018-09-08] MEDS: FOLIC ACID 1 MG TAB PO SCH (08:19)
--- NOTE | 2018-09-08 09:59 | BHS Progress Note ---
[facility] - Subjective Progress Notes Subjective Patient remains cooperative on unit. Continues to make slow gains in recovery of physical strength and cognition. 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 Court hearing for DUI is September 28. Suicidal Ideation: None Homicidal Ideation: None [facility] - Objective Physical Exam Vital Signs Vital Signs Date Time Temp Pulse Resp B/P (MAP) Pulse Ox O2 Delivery O2 Flow Rate FiO2 09/08/18 06:25 98.0 88 16 113/76 (88) 95 Room Air Muscle Strength and Tone: WNL (reduced) Gait and Station: Other (wide based gait) [facility] Medications Reviewed: Side Effects, Benefits of Medication, Risks Allergies Reviewed: Yes Mental Status Exam General Appearance: Casual, Well Groomed, Good Eye Contact (fair), Cooperative, Polite, Good Interaction; No Tearful, No Psychomotor Agitation, No Psychomotor Retardation Speech: Clear, Spontaneous, Normal Rate, Normal Rhythm, Normal Volume, Normal Tone; No Slurred, No Garbled Mood: Euthymic (irritated at times) Affect: Full and Appropriate; No Tearful, No Anxious, No Agitated Thought Process: Goal Directed (" I don't want to go to rehab"); No Loose Associations, No Flight of Ideas Thought Content: No Suicidal Ideation, No Homicidal Ideation, No Delusions, No Auditory Halllucinations, No Visual Hallucinations, No Thought Broadcasting, No Ideas of Reference, No Obsessions, No Compulsions, No Other Sensorium: Clear Cognition: Alert & Oriented-Person, Alert & Oriented-Place, Alert & Oriented- Time, Wvjji-Iyqrlpbf-Cpurcdhvq Memory: Immediate (deficits exist), Recent, Remote; No Other Intelligence: Average (historically) Insight Judgment: Poor (limited, due to cognitive limitations. and high probab ility of relapse. 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 continue treatment. 2. await [address] hearing on Tuesday. 3. no medication changes. GANGA MOHAN MD Sep 08, 2018 09:59
[2018-09-08 14:10] VITALS: BP 110/70
[2018-09-08] MEDS: QUEtiapine FUM 25 MG TAB PO SCH (21:22)
[2018-09-09 06:11] VITALS: BP 98/62
[2018-09-09] MEDS: FOLIC ACID 1 MG TAB PO SCH (08:24)
[2018-09-09] MEDS: THIAMINE HCL 100 MG TAB PO SCH (08:24)
--- NOTE | 2018-09-09 11:19 | BHS Progress Note ---
[facility] - Subjective Progress Notes Subjective Pt seen in conference room with staff. He seems to be doing better cognitively, tracking better, staying on topic, well oriented, although still some confusion about the details of his postponed mental health court hearing. Slept well last night with 50 mg seroquel. We discussed possibility of going off of it, and discussed possible side effects including wt gain with [facility] use, but he would like to continue for now, says he won't need it after discharge since he tends to be active and will sleep better then... Discussed strategies for continued sobriety once he leaves hospital, he is verbalizing committment to sobriety. Continue current tx, for mental health court next week. Suicidal Ideation: None Homicidal Ideation: None [facility] - Objective Physical Exam Vital Signs Vital Signs 09/09/18 06:11 Temp 97.6 Pulse 80 Resp 15 B/P (MAP) 98/62 (74) Pulse Ox 92 O2 Delivery Room Air Muscle Strength and Tone: WNL (reduced) Gait and Station: Other (wide based gait) [facility] Medications Reviewed: Side Effects, Benefits of Medication, Risks Allergies Reviewed: Yes Mental Status Exam General Appearance: Casual, Well Groomed, Good Eye Contact (fair), Cooperative, Polite, Good Interaction; No Tearful, No Psychomotor Agitation, No Psychomotor Retardation Speech: Clear, Spontaneous, Normal Rate, Normal Rhythm, Normal Volume, Normal Tone; No Slurred, No Garbled Mood: Euthymic (irritated at times) Affect: Full and Appropriate; No Tearful, No Anxious, No Agitated Thought Process: Goal Directed (" I don't want to go to rehab"); No Loose Associations, No Flight of Ideas Thought Content: No Suicidal Ideation, No Homicidal Ideation, No Delusions, No Auditory Halllucinations, No Visual Hallucinations, No Thought Broadcasting, No Ideas of Reference, No Obsessions, No Compulsions, No Other Sensorium: Clear Cognition: Alert & Oriented-Person, Alert & Oriented-Place, Alert & Oriented- Time, Kvwhm-Numojhun-Mwtyvlwil Memory: Immediate (deficits exist), Recent, Remote; No Other Intelligence: Average (historically) Insight Judgment: Poor (limited, due to cognitive limitations. and high probability of relapse. 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
[2018-09-09] MEDS: QUEtiapine FUM 25 MG TAB PO SCH (20:24)
[2018-09-10 05:51] VITALS: BP 108/68
[2018-09-10] MEDS: THIAMINE HCL 100 MG TAB PO SCH (08:55)
[2018-09-10] MEDS: FOLIC ACID 1 MG TAB PO SCH (08:55)
--- NOTE | 2018-09-10 11:03 | BHS Progress Note ---
[facility] - Subjective Progress Notes Subjective Pt seen. He is doing well today, slept well, appetite good, says his mood is "OK." We discussed sobriety, reality of significant risk of liver disease including possible cirrhosis or liver CA if he continues drinking, reviewed his labs. He will do some sobrity skills work today including watch [employer] educati onal DVD. Awaiting mental health court hearing tomorrow. Suicidal Ideation: None Homicidal Ideation: None [facility] - Objective Physical Exam Vital Signs Vital Signs 09/10/18 05:51 Temp 98.0 Pulse 90 Resp 15 B/P (MAP) 108/68 (81) Pulse Ox 93 O2 Delivery Room Air Muscle Strength and Tone: WNL Gait and Station: Steady [facility] Medications Reviewed: Side Effects, Benefits of Medication, Risks Allergies Reviewed: Yes Mental Status Exam General Appearance: Casual, Well Groomed, Good Eye Contact, Cooperative, Polite, Good Interaction; No Tearful, No Psychomotor Agitation, No Psychomotor Retardation Speech: Clear, Spontaneous, Normal Rate, Normal Rhythm, Normal Volume, Normal Tone; No Slurred, No Garbled Mood: Euthymic (irritated at times) Affect: Full and Appropriate; No Tearful, No Anxious, No Agitated Thought Process: Organized, Logical, Goal Directed; No Loose Associations, No Flight of Ideas Thought Content: No Suicidal Ideation, No Homicidal Ideation, No Delusions, No Auditory Halllucinations, No Visual Hallucinations, No Thought Broadcasting, No Ideas of Reference, No Obsessions, No Compulsions, No Other Sensorium: Clear Cognition: Alert & Oriented-Person, Alert & Oriented-Place, Alert & Oriented- Time, Qfbwh-Nspqzxuo-Ksvbjqvvx Memory: Immediate (deficits exist), Recent, Remote; No Other Intelligence: Average (historically) Insight Judgment: Poor (limited, due to cognitive limitations. and high probability of relapse. 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
[2018-09-10] MEDS: QUEtiapine FUM 25 MG TAB PO SCH (20:55)
[2018-09-11 06:00] VITALS: BP 122/68
[2018-09-11 06:06] VITALS: BP 98/60
[2018-09-11] MEDS: THIAMINE HCL 100 MG TAB PO SCH (08:03)
[2018-09-11] MEDS: FOLIC ACID 1 MG TAB PO SCH (08:03)
[2018-09-11 11:25] VITALS: BP 106/68
--- NOTE | 2018-09-11 12:07 | BHS Progress Note ---
[facility] - Subjective Progress Notes Subjective Patient continues to make progress physically and mentally, in the absence of alcohol. Patient participates in group and individual therapy, and remains cooperative on the unit. Patient certainly remains at risk for relapse into alcohol use, and if that were to occur would certainly decompensate both physically and mentally very quickly. Patient has now recovered to a point that in the absence of alcohol use he would be able to attend to ADL's, Patient's parents will be here during his 10-day extension hearing today, to voice their concerns about his potential to relapse, and limited finances, as well as questionable availability of housing. Another possibility is a suspended commitment, with [facility]. Patient also has a court hearing concerning a pending DUI on the 28 of September. The recommendation continues to be that patient would enter a residential rehab program Suicidal Ideation: None Homicidal Ideation: None [facility] - Objective Physical Exam Vital Signs Hematology Test 09/07/18 06:15 White Blood Count 9.9 k/uL (4.5-11.0) Red Blood Count 3.81 M/uL (4.00-5.60) L Hemoglobin 12.9 g/dL (14.0-18.0) L Hematocrit 38.5 % (42.0-52.0) L Mean Corpuscular Volume 101.2 fL (80.0-96.0) H Mean Corpuscular Hemoglobin 33.9 pg (26.0-33.0) H Mean Corpuscular Hemoglobin Concent 33.5 g/dL (32.0-36.0) Red Cell Distribution Width 12.4 % (11.5-14.5) Platelet Count 279 K/uL (150-450) Mean Platelet Volume 7.9 fL (7.2-11.1) Neutrophils (%) (Auto) 54.7 % (39.4-72.5) Lymphocytes (%) (Auto) 26.6 % (17.6-49.6) Monocytes (%) (Auto) 12.8 % (4.1-12.4) H Eosinophils (%) (Auto) 5.0 % (0.4-6.7) Basophils (%) (Auto) 0.9 % (0.3-1.4) Nucleated RBC Relative Count (auto) 0.0 /100WBC Neutrophils # (Auto) 5.4 K/uL (2.0-7.4) Lymphocytes # (Auto) 2.6 K/uL (1.3-3.6) Monocytes # (Auto) 1.3 K/uL (0.3-1.0) H Eosinophils # (Auto) 0.5 K/uL (0.0-0.5) Basophils # (Auto) 0.1 K/uL (0.0-0.1) Nucleated RBC Absolute Count (auto) 0.00 K/uL Chemistry Test 09/07/18 06:15 Sodium Level 140 mmol/L (137-145) Potassium Level 3.7 mmol/L (3.5-5.0) Chloride Level 108 mmol/L (98-107) Carbon Dioxide Level 20 mmol/L (22-30) Blood Urea Nitrogen 6 mg/dl (9-21) Creatinine 0.50 mg/dl (0.66-1.25) Glomerular Filtration Rate Calc > 60.0 Random Glucose 86 mg/dl (75-110) Calcium Level 9.0 mg/dl (8.4-10.2) Magnesium Level 1.6 mg/dl (1.7-2.2) Total Bilirubin 1.4 mg/dl (0.2-1.3) Aspartate Amino Transf (AST/SGOT) 91 U/L (0-35) Alanine Aminotransferase (ALT/SGPT) 47 U/L (0-56) Alkaline Phosphatase 89 U/L (0-126) Ammonia 19 UMOL/L (9-33) Total Protein 6.7 g/dl (6.3-8.2) Albumin 3.3 g/dl (3.5-5.0) Muscle Strength and Tone: WNL Gait and Station: Steady [facility] Medications Reviewed: Side Effects, Benefits of Medication, Risks Allergies Reviewed: Yes Mental Status Exam General Appearance: Casual, Well Groomed, Good Eye Contact, Cooperative, Polite, Good Interaction; No Tearful, No Psychomotor Agitation, No Psychomotor Retardation Speech: Clear, Spontaneous, Normal Rate, Normal Rhythm, Normal Volume, Normal Tone; No Slurred, No Garbled Mood: Euthymic (irritated at times, but remains pleasant overall. ) Affect: Full and Appropriate; No Tearful, No Anxious, No Agitated Thought Process: Organized, Logical, Goal Directed; No Loose Associations, No Flight of Ideas Thought Content: No Suicidal Ideation, No Homicidal Ideation, No Delusions, No Auditory Halllucinations, No Visual Hallucinations, No Thought Broadcasting, No Ideas of Reference, No Obsessions, No Compulsions, No Other Sensorium: Clear Cognition: Alert & Oriented-Person, Alert & Oriented-Place, Alert & Oriented- Time, Mzdov-Egyphsqx-Jggbxvmoc Memory: Immediate (deficits exist), Recent, Remote; No Other Intelligence: Average (historically) Insight Judgment: Poor (limited, due to cognitive limitations. and high probability of relapse. 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 hearing today. 2. no medications changes. 3. encourage entrance into rehab. GANGA MOHAN MD Sep 11, 2018 12:07
[2018-09-11 20:09] VITALS: BP 116/70
[2018-09-11] MEDS: QUEtiapine FUM 25 MG TAB PO SCH (20:39)
[2018-09-12 05:40] VITALS: BP 107/62
[2018-09-12] MEDS: THIAMINE HCL 100 MG TAB PO SCH (08:09)
[2018-09-12] MEDS: FOLIC ACID 1 MG TAB PO SCH (08:09)
--- NOTE | 2018-09-12 12:03 | BHS Progress Note ---
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 Patient continues to make slow progress with immediate memory and continues to gain physical strength. Patient remains on an ten day hold now, and is ready for discharge when court documents are in place. Patient denies any concerns today. will continue same medications. Suicidal Ideation: None Homicidal Ideation: None [facility] - Objective Physical Exam Vital Signs Vital Signs Date Time Temp Pulse Resp B/P (MAP) Pulse Ox O2 Delivery O2 Flow Rate FiO2 09/12/18 05:40 98.9 79 107/62 (77) 96 Room Air 09/10/18 05:51 15 Muscle Strength and Tone: WNL Gait and Station: Steady [facility] Medications Reviewed: Side Effects, Benefits of Medication, Risks Allergies Reviewed: Yes Mental Status Exam General Appearance: Casual, Well Groomed, Good Eye Contact, Cooperative, Polite, Good Interaction; No Tearful, No Psychomotor Agitation, No Psychomotor Retardation Speech: Clear, Spontaneous, Normal Rate, Normal Rhythm, Normal Volume, Normal Tone; No Slurred, No Garbled Mood: Euthymic (irritated at times, but remains pleasant overall. ) Affect: Full and Appropriate; No Tearful, No Anxious, No Agitated Thought Process: Organized, Logical, Goal Directed; No Loose Associations, No Flight of Ideas Thought Content: No Suicidal Ideation, No Homicidal Ideation, No Delusions, No Auditory Halllucinations, No Visual Hallucinations, No Thought Broadcasting, No Ideas of Reference, No Obsessions, No Compulsions, No Other Sensorium: Clear Cognition: Alert & Oriented-Person, Alert & Oriented-Place, Alert & Oriented- Time, Fvexs-Byenzkud-Sqwtcbumq Memory: Immediate (deficits exist), Recent, Remote; No Other Intelligence: Average (historically) Insight Judgment: Poor (limited, due to cognitive limitations. and high probability of relapse. ) [facility] Assessment and Plan Ohbl-rv-Ghqh Encounter Date: Sep 12, 2018 Ldgq-jg-Rnyj Encounter Time: 11:00 [facility] Plan: Necessary Precautions, Individual/Group Therapy, Admin/Titrate Meds, Educate Patient Tobacco Medications: Started Multpiple Antipsychotics Used: No Problems: (1) Major neurocognitive disorder Optional Permanent Comment: secondary to repeated head injuries and likely alcohol related custodial deficits Last Edited By: Ganga Mohan on Sep 12, 2018 12:01 Status: Chronic (2) Alcohol use disorder, severe, dependence Status: Chronic Condition 1. continue treatment. 2. no medication changes. 3. await court finalization regarding drug court. GANGA MOHAN MD Sep 12, 2018 12:03
[2018-09-12] MEDS: QUEtiapine FUM 25 MG TAB PO SCH (20:49)
[2018-09-12 21:15] VITALS: BP 122/74
[2018-09-13 05:50] VITALS: BP 106/68
[2018-09-13] MEDS: FOLIC ACID 1 MG TAB PO SCH (08:00)
[2018-09-13] MEDS: THIAMINE HCL 100 MG TAB PO SCH (08:00)
--- NOTE | 2018-09-13 12:06 | BHS Progress Note ---
[facility] - Subjective Progress Notes Subjective Patient remains compliant and putting some effort into treatment on the unit. Mood good, irritable at times, but able to suppress showing it on the unit. Cognition continues to improve. No other concerns. Await court direction regarding release and follow up. Suicidal Ideation: None Homicidal Ideation: None [facility] - Objective Physical Exam Vital Signs Vital Signs Date Time Temp Pulse Resp B/P (MAP) Pulse Ox O2 Delivery O2 Flow Rate FiO2 09/13/18 05:50 99.1 83 106/68 (81) 95 Room Air 09/10/18 05:51 15 Muscle Strength and Tone: WNL Gait and Station: Steady [facility] Medications Reviewed: Side Effects, Benefits of Medication, Risks Allergies Reviewed: Yes Mental Status Exam General Appearance: Casual, Well Groomed, Good Eye Contact, Cooperative, Polite, Good Interaction; No Tearful, No Psychomotor Agitation, No Psychomotor Retardation Speech: Clear, Spontaneous, Normal Rate, Normal Rhythm, Normal Volume, Normal T one; No Slurred, No Garbled Mood: Euthymic (irritated at times, but remains pleasant overall. ) Affect: Full and Appropriate; No Tearful, No Anxious, No Agitated Thought Process: Organized, Logical, Goal Directed; No Loose Associations, No Flight of Ideas Thought Content: No Suicidal Ideation, No Homicidal Ideation, No Delusions, No Auditory Halllucinations, No Visual Hallucinations, No Thought Broadcasting, No Ideas of Reference, No Obsessions, No Compulsions, No Other Sensorium: Clear Cognition: Alert & Oriented-Person, Alert & Oriented-Place, Alert & Oriented- Time, Oftih-Cjmbqatm-Judawrcbu Memory: Immediate (deficits exist), Recent, Remote; No Other Intelligence: Average (historically) Insight Judgment: Poor (limited, due to cognitive limitations. and high probability of relapse. 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 continue treatment. 2. await [address] direction regarding discharge and follow up. GANGA MOHAN MD Sep 13, 2018 12:05
[2018-09-13 14:17] LABS: PLATELET COUNT, AUTOMATED 228 K/uL (150-450)
[2018-09-13] MEDS: QUEtiapine FUM 25 MG TAB PO SCH (21:15)
[2018-09-14 07:03] VITALS: BP 113/67
[2018-09-14] MEDS: FOLIC ACID 1 MG TAB PO SCH (09:00)
[2018-09-14] MEDS: THIAMINE HCL 100 MG TAB PO SCH (09:00)
--- NOTE | 2018-09-14 11:31 | BHS Progress Note ---
[facility] - Subjective Progress Notes Subjective Patient remains very cooperative on the unit, smiling and interacting well on the unit with this provider. Patient verbalizes a desire to avoid alcohol, lab data continues to show slow improvement. Patient remains on an involuntary hold, and will continue to await court direction for discharge. No medication changes. No other concerns. Suicidal Ideation: None Homicidal Ideation: None [facility] - Objective Physical Exam Vital Signs Hematology Test 09/13/18 14:03 White Blood Count 8.9 k/uL (4.5-11.0) Red Blood Count 4.05 M/uL (4.00-5.60) Hemoglobin 13.7 g/dL (14.0-18.0) L Hematocrit 40.5 % (42.0-52.0) L Mean Corpuscular Volume 100.2 fL (80.0-96.0) H Mean Corpuscular Hemoglobin 33.9 pg (26.0-33.0) H Mean Corpuscular Hemoglobin Concent 33.9 g/dL (32.0-36.0) Red Cell Distribution Width 12.2 % (11.5-14.5) Platelet Count 228 K/uL (150-450) Mean Platelet Volume 8.2 fL (7.2-11.1) Neutrophils (%) (Auto) 60.6 % (39.4-72.5) Lymphocytes (%) (Auto) 22.4 % (17.6-49.6) Monocytes (%) (Auto) 13.7 % (4.1-12.4) H Eosinophils (%) (Auto) 2.0 % (0.4-6.7) Basophils (%) (Auto) 1.3 % (0.3-1.4) Nucleated RBC Relative Count (auto) 0.0 /100WBC Neutrophils # (Auto) 5.4 K/uL (2.0-7.4) Lymphocytes # (Auto) 2.0 K/uL (1.3-3.6) Monocytes # (Auto) 1.2 K/uL (0.3-1.0) H Eosinophils # (Auto) 0.2 K/uL (0.0-0.5) Basophils # (Auto) 0.1 K/uL (0.0-0.1) Nucleated RBC Absolute Count (auto) 0.00 K/uL Peripheral Blood Smear No Y/N Chemistry Test 09/07/18 06:15 09/13/18 14:03 Ammonia 19 UMOL/L (9-33) Sodium Level 139 mmol/L (137-145) Potassium Level 3.9 mmol/L (3.5-5.0) Chloride Level 106 mmol/L (98-107) Carbon Dioxide Level 21 mmol/L (22-30) Blood Urea Nitrogen 7 mg/dl (9-21) Creatinine 0.40 mg/dl (0.66-1.25) Glomerular Filtration Rate Calc > 60.0 Random Glucose 134 mg/dl (75-110) Calcium Level 9.2 mg/dl (8.4-10.2) Magnesium Level 1.5 mg/dl (1.7-2.2) Total Bilirubin 1.3 mg/dl (0.2-1.3) Aspartate Amino Transf (AST/SGOT) 66 U/L (0-35) Alanine Aminotransferase (ALT/SGPT) 48 U/L (0-56) Alkaline Phosphatase 86 U/L (0-126) Total Protein 7.5 g/dl (6.3-8.2) Albumin 3.8 g/dl (3.5-5.0) Vital Signs Date Time Temp Pulse Resp B/P (MAP) Pulse Ox O2 Delivery O2 Flow Rate FiO2 09/14/18 07:03 98.9 76 113/67 (82) 93 Room Air Muscle Strength and Tone: WNL Gait and Station: Steady [facility] Medications Reviewed: Side Effects, Benefits of Medication, Risks Allergies Reviewed: Yes Mental Status Exam General Appearance: Casual, Well Groomed, Good Eye Contact, Cooperative, Polite, Good Interaction; No Tearful, No Psychomotor Agitation, No Psychomotor Retardation Speech: Clear, Spontaneous, Normal Rate, Normal Rhythm, Normal Volume, Normal Tone; No Slurred, No Garbled Mood: Euthymic (irritated at times, but remains pleasant overall. ) Affect: Full and Appropriate; No Tearful, No Anxious, No Agitated Thought Process: Organized, Logical, Goal Directed; No Loose Associations, No Flight of Ideas Thought Content: No Suicidal Ideation, No Homicidal Ideation, No Delusions, No Auditory Halllucinations, No Visual Hallucinations, No Thought Broadcasting, No Ideas of Reference, No Obsessions, No Compulsions, No Other Sensorium: Clear Cognition: Alert & Oriented-Person, Alert & Oriented-Place, Alert & Oriented- Time, Lsshr-Mhfaaiwx-Ammeunjot Memory: Immediate (deficits exist), Recent, Remote; No Other Intelligence: Average (historically) Insight Judgment: Poor (limited, due to cognitive limitations. and high probability of relapse. 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 no medication changes. 2. will await court direction concerning time of discharge, and requirements to promote abstinence. GANGA MOHAN MD Sep 14, 2018 11:31
[2018-09-14] MEDS: IBUPROFEN 600 MG TAB PO PRN (13:58)
[2018-09-14] MEDS: QUEtiapine FUM 25 MG TAB PO SCH (20:32)
[2018-09-15] MEDS: FOLIC ACID 1 MG TAB PO SCH ×2 (08:40→08:50)
[2018-09-15] MEDS: THIAMINE HCL 100 MG TAB PO SCH ×2 (08:40→08:50)
--- NOTE | 2018-09-15 08:59 | BHS Progress Note ---
[facility] - Subjective Progress Notes Subjective Patient continues to be overall cooperative, initially refusing vitamins this AM, then deciding to take them later. Patient demonstrating ongoing generalized confusion likely related to cognitive impairment secondary to alcohol use. Will await evaluation from drug court, and court direction concerning discharge. No other concerns today. Suicidal Ideation: None Homicidal Ideation: None [facility] - Objective Physical Exam Vital Signs Vital Signs Date Time Temp Pulse Resp B/P (MAP) Pulse Ox O2 Delivery O2 Flow Rate FiO2 09/14/18 07:03 98.9 76 113/67 (82) 93 Room Air Muscle Strength and Tone: WNL Gait and Station: Steady [facility] Medications Reviewed: Side Effects, Benefits of Medication, Risks Allergies Reviewed: Yes Mental Status Exam General Appearance: Casual, Well Groomed, Good Eye Contact, Cooperative, Polite, Good Interaction; No Tearful, No Psychomotor Agitation, No Psychomotor Retardation Speech: Clear, Spontaneous, Normal Rate, Normal Rhythm, Normal Volume, Normal Tone; No Slurred, No Garbled Mood: Euthymic (irritated at times, but remains pleasant overall. ) Affect: Full and Appropriate; No Tearful, No Anxious, No Agitated Thought Process: Organized, Logical, Goal Directed; No Loose Associations, No Flight of Ideas Thought Content: No Suicidal Ideation, No Homicidal Ideation, No Delusions, No Auditory Halllucinations, No Visual Hallucinations, No Thought Broadcasting, No Ideas of Reference, No Obsessions, No Compulsions, No Other Sensorium: Clear Cognition: Alert & Oriented-Person, Alert & Oriented-Place, Alert & Oriented- Time, Jwupz-Wljtsfwx-Uzgpgtzxj Memory: Immediate (deficits exist), Recent, Remote; No Other Intelligence: Average (historically) Insight Judgment: Poor (limited, due to cognitive limitations. and high p robability of relapse. ) Result Diagram: 09/13/18 1403 09/13/18 1403 [facility] Assessment and Plan Zzgy-pj-Kidc Encounter Date: Sep 15, 2018 Wqiw-uo-Gcpk Encounter Time: 08:30 [facility] Plan: Necessary Precautions, Individual/Group Therapy, Admin/Titrate Meds, Educate Patient Tobacco Medications: Started Multpiple Antipsychotics Used: No Problems: (1) Major neurocognitive disorder Optional Permanent Comment: secondary to repeated head injuries and likely alcohol related chcf deficits Last Edited By: Ganga Mohan on Sep 12, 2018 12:01 Status: Chronic (2) Alcohol use disorder, severe, dependence Status: Chronic Condition 1. continue treatment. 2. [address] direction concerning discharge. GANGA MOHAN MD Sep 15, 2018 08:59
[2018-09-15 11:09] VITALS: BP 108/62
[2018-09-15 19:54] VITALS: BP 114/86
[2018-09-15] MEDS: QUEtiapine FUM 25 MG TAB PO SCH (20:36)
[2018-09-16] MEDS: IBUPROFEN 600 MG TAB PO PRN ×2 (07:49→16:21)
[2018-09-16] MEDS: FOLIC ACID 1 MG TAB PO SCH (07:49)
[2018-09-16] MEDS: THIAMINE HCL 100 MG TAB PO SCH (07:49)
--- NOTE | 2018-09-16 09:40 | BHS Progress Note ---
[facility] - Subjective Progress Notes Subjective "I should be out of here. In my opinion it's illegal. I'm going to call protection and advocacy," Continues to have urge to drink, "One thing at a time." Denies depression, anxiety, some irritability regarding length of stay Denies suicidal or homicidal ideation Suicidal Ideation: None Homicidal Ideation: None S - Objective Physical Exam Vital Signs Medications (Trade) Dose Ordered Sig/Noah Route PRN Reason Start Time Stop Time Status Last Admin Dose Admin Folic Acid (Folic Acid (*) 1 Mg Tab) 1 mg QDAY PO 09/02/18 09:00 10/02/18 08:59 09/16/18 07:49 Ibuprofen (Motrin (*) 600 Mg Tab (Or Equiv)) 600 mg Q6H PRN PO PAIN 09/14/18 13:30 10/14/18 13:29 09/16/18 07:49 Nicotine Polacrilex (Nicorette 2 Mg Gum (Or Equiv)) 2 mg Q1-2H PRN PO NICOTINE REPLACEMENT 09/04/18 14:45 10/04/18 14:44 09/04/18 15:47 Quetiapine Fumarate (SEROquel 25 MG TAB (OR EQUIV)) 50 mg QHS PO 09/07/18 21:00 10/07/18 20:59 09/15/18 20:36 Thiamine HCl (Vitamin B-1(*) 100 Mg Tab (Or Equiv)) 100 mg QDAY PO 09/02/18 09:00 10/02/18 08:59 09/16/18 07:49 Deferred Allergies Coded Allergies Penicillins (Verified Allergy, Unknown, 08/08/18) Muscle Strength and Tone: WNL Gait and Station: Steady [facility] Medications Reviewed: Side Effects, Benefits of Medication, Risks Allergies Reviewed: Yes Mental Status Exam General Appearance: Casual, Well Groomed, Good Eye Contact, Cooperative, Polite, Good Interaction; No Tearful, No Psychomotor Agitation, No Psychomotor Retardation Speech: Clear, Spontaneous, Normal Rate, Normal Rhythm, Normal Volume, Normal Tone; No Slurred, No Garbled Mood: Euthymic Affect: Full and Appropriate; No Tearful, No Anxious, No Agitated Thought Process: Organized, Logical, Goal Directed; No Loose Associations, No Flight of Ideas Thought Content: No Suicidal Ideation, No Homicidal Ideation, No Delusions, No Auditory Halllucinations, No Visual Hallucinations, No Thought Broadcasting, No Ideas of Reference, No Obsessions, No Compulsions, No Other Sensorium: Clear Cognition: Alert & Oriented-Person, Alert & Oriented-Place, Alert & Oriented- Time, Tefdd-Nuyendli-Gmlikslos Memory: Immediate (deficits exist), Recent, Remote; No Other Intelligence: Average (historically) Insight Judgment: Poor (limited, due to cognitive limitations. and high probability of relapse. ) Result Diagram: 09/13/18 1403 09/13/18 1403 [facility] Medications (Trade) Dose Ordered Sig/Noah Route PRN Reason Start Time Stop Time Status Last Admin Dose Admin Folic Acid (Folic Acid (*) 1 Mg Tab) 1 mg QDAY PO 09/02/18 09:00 10/02/18 08:59 09/16/18 07:49 Ibuprofen (Motrin (*) 600 Mg Tab (Or Equiv)) 600 mg Q6H PRN PO PAIN 09/14/18 13:30 10/14/18 13:29 09/16/18 07:49 Nicotine Polacrilex (Nicorette 2 Mg Gum (Or Equiv)) 2 mg Q1-2H PRN PO NICOTINE REPLACEMENT 09/04/18 14:45 10/04/18 14:44 09/04/18 15:47 Quetiapine Fumarate (SEROquel 25 MG TAB (OR EQUIV)) 50 mg QHS PO 09/07/18 21:00 10/07/18 20:59 09/15/18 20:36 Thiamine HCl (Vitamin B-1(*) 100 Mg Tab (Or Equiv)) 100 mg QDAY PO 09/02/18 09:00 10/02/18 08:59 09/16/18 07:49 [facility] Assessment and Plan Nure-[id number] Encounter Date: Sep 16, 2018 Flhi-ao-Rfiv Encounter Time: 09:34 [facility] Plan: Necessary Precautions, Individual/Group Therapy, Admin/Titrate Meds, Educate Patient Tobacco Medications: Started Multpiple Antipsychotics Used: No Problems: (1) Alcohol use disorder, severe, dependence Status: Chronic (2) Elevated liver enzymes Status: Acute (3) Major neurocognitive disorder Optional Permanent Comment: secondary to repeated head injuries and likely alcohol related halfway deficits Last Edited By: Jamal Awan on Sep 12, 2018 12:01 Status: Chronic Condition Continue current medication and treatment Awaiting disposition Encourage sobriety SATISH HERNANDEZ NP Sep 16, 2018 09:40
[2018-09-16 13:00] VITALS: BP 118/72
[2018-09-16] MEDS: QUEtiapine FUM 25 MG TAB PO SCH (20:22)
[2018-09-17 05:37] VITALS: BP 105/66
[2018-09-17] MEDS: THIAMINE HCL 100 MG TAB PO SCH (08:43)
[2018-09-17] MEDS: FOLIC ACID 1 MG TAB PO SCH (08:43)
[2018-09-17] MEDS: NICOTINE POLACRILEX 2 MG GUM PO PRN (08:51)
--- NOTE | 2018-09-17 08:58 | BHS Progress Note ---
[facility] - Subjective Progress Notes Subjective "I'll be out of here Tuesday. That's when the ten day is up." Sleep fair with use of Seroquel 50mg, "I couldn't get to sleep last night." Irritable, denies depression or anxiety, angry about hospitalization Awaiting completion of ten day commitment Suicidal Ideation: None Homicidal Ideation: None [facility] - Objective Physical Exam Vital Signs Medications (Trade) Dose Ordered Sig/Noah Route PRN Reason Start Time Stop Time Status Last Admin Dose Admin Folic Acid (Folic Acid (*) 1 Mg Tab) 1 mg QDAY PO 09/02/18 09:00 10/02/18 08:59 09/17/18 08:43 Ibuprofen (Motrin (*) 600 Mg Tab (Or Equiv)) 600 mg Q6H PRN PO PAIN 09/14/18 13:30 10/14/18 13:29 09/16/18 16:21 Nicotine Polacrilex (Nicorette 2 Mg Gum (Or Equiv)) 2 mg Q1-2H PRN PO NICOTINE REPLACEMENT 09/04/18 14:45 10/04/18 14:44 09/04/18 15:47 Quetiapine Fumarate (SEROquel 25 MG TAB (OR EQUIV)) 50 mg QHS PO 09/07/18 21:00 10/07/18 20:59 09/16/18 20:22 Thiamine HCl (Vitamin B-1(*) 100 Mg Tab (Or Equiv)) 100 mg QDAY PO 09/02/18 09:00 10/02/18 08:59 09/17/18 08:43 Deferred Laboratory Tests 09/13/18 14:03 Laboratory Tests 09/07/18 06:15: Ammonia 19 09/13/18 14:03: White Blood Count 8.9, Red Blood Count 4.05, Hemoglobin 13.7, Hematocrit 40.5, Mean Corpuscular Volume 100.2, Mean Corpuscular Hemoglobin 33.9, Mean Corpuscular Hemoglobin Concent 33.9, Red Cell Distribution Width 12.2, Platelet Count 228, Mean Platelet Volume 8.2, Neutrophils (%) (Auto) 60.6, Lymphocytes (% ) (Auto) 22.4, Monocytes (%) (Auto) 13.7, Eosinophils (%) (Auto) 2.0, Basophils (%) (Auto) 1.3, Nucleated RBC Relative Count (auto) 0.0, Neutrophils # (Auto) 5.4, Lymphocytes # (Auto) 2.0, Monocytes # (Auto) 1.2, Eosinophils # (Auto) 0.2, Basophils # (Auto) 0.1, Nucleated RBC Absolute Count (auto) 0.00, Peripheral Blood Smear No, Sodium Level 139, Potassium Level 3.9, Chloride Level 106, Carbon Dioxide Level 21, Blood Urea Nitrogen 7, Creatinine 0.40, Glomerular Filtration Rate Calc > 60.0, Random Glucose 134, Calcium Level 9.2, Magnesium Level 1.5, Total Bilirubin 1.3, Aspartate Amino Transf (AST/SGOT) 66, Alanine Aminotransferase (ALT/SGPT) 48, Alkaline Phosphatase 86, Total Protein 7.5, Albumin 3.8 Muscle Strength and Tone: WNL Gait and Station: Steady [facility] Medications Reviewed: Side Effects, Benefits of Medication, Risks Allergies Reviewed: Yes Mental Status Exam General Appearance: Casual, Well Groomed, Good Eye Contact, Cooperative, Polite, Good Interaction; No Tearful, No Psychomotor Agitation, No Psychomotor Retardation Speech: Clear, Spontaneous, Normal Rate, Normal Rhythm, Normal Volume, Normal Tone; No Slurred, No Garbled Mood: No Euthymic; Other (irritable) Affect: Full and Appropriate; No Tearful, No Anxious; Agitated Thought Process: Organized, Logical, Goal Directed; No Loose Associations, No Flight of Ideas Thought Content: No Suicidal Ideation, No Homicidal Ideation, No Delusions, No Auditory Halllucinations, No Visual Hallucinations, No Thought Broadcasting, No Ideas of Reference, No Obsessions, No Compulsions, No Other Sensorium: Clear Cognition: Alert & Oriented-Person, Alert & Oriented-Place, Alert & Oriented- Time, Qidhs-Kzdbbeaq-Cdsnhkgaw Memory: Immediate (deficits exist), Recent, Remote; No Other Intelligence: Average (historically) Insight Judgment: Poor (limited, due to cognitive limitations. and high probability of relapse. ) Result Diagram: 09/13/18 1403 09/13/18 1403 [facility] Assessment and Plan [id number]-[id number]-[id number] Encounter Date: Sep 17, 2018 Debf-xa-Kaqz Encounter Time: 08:52 [facility] Plan: Necessary Precautions, Individual/Group Therapy, Admin/Titrate Meds, Educate Patient Tobacco Medications: Started Multpiple Antipsychotics Used: No Problems: (1) Alcohol use disorder, severe, dependence Status: Chronic (2) Elevated liver enzymes Status: Acute (3) Major neurocognitive disorder Optional Permanent Comment: secondary to repeated head injuries and likely alcohol related senior living deficits Last Edited By: Jamal Awan on Sep 12, 2018 12:01 Status: Chronic Condition Continue current medications and treatment Encourage substance abuse treatment upon discharge SATISH HERNANDEZ NP Sep 17, 2018 08:58
[2018-09-17] MEDS ORDERED: QUEtiapine FUM 25 MG TAB PO PRN (10:40)
[2018-09-17 14:40] VITALS: BP 102/72
[2018-09-17] MEDS: QUEtiapine FUM 25 MG TAB PO SCH (20:18)
[2018-09-17] MEDS: QUEtiapine FUM 25 MG TAB PO PRN (23:32)
[2018-09-18 05:45] VITALS: BP 109/73
[2018-09-18] MEDS: FOLIC ACID 1 MG TAB PO SCH (08:01)
[2018-09-18] MEDS: THIAMINE HCL 100 MG TAB PO SCH (08:01)
--- NOTE | 2018-09-18 10:33 | BHS Progress Note ---
[facility] - Subjective Progress Notes Subjective "I am in rehab", patient refers to all time of abstinence in the hospital as rehab. Patient able to remember that tomorrow he will have ASI evaluation for drug court. Slept well last PM, will continue same medications. No other concerns today. Suicidal Ideation: None Homicidal Ideation: None [facility] - Objective Physical Exam Vital Signs Vital Signs Date Time Temp Pulse Resp B/P (MAP) Pulse Ox O2 Delivery O2 Flow Rate FiO2 09/18/18 05:45 98.6 87 16 109/73 (85) 93 Room Air Muscle Strength and Tone: WNL Gait and Station: Steady [facility] Medications Reviewed: Side Effects, Benefits of Medication, Risks Allergies Reviewed: Yes Mental Status Exam General Appearance: Casual, Well Groomed, Good Eye Contact, Cooperative, Polite, Good Interaction; No Tearful, No Psychomotor Agitation, No Psychomotor Retardation Speech: Clear, Spontaneous, Normal Rate, Normal Rhythm, Normal Volume, Normal Tone; No Slurred, No Garbled Mood: No Euthymic; Other (irritable) Affect: Full and Appropriate; No Tearful, No Anxious; Agitated Thought Process: Organized, Logical, Goal Directed; No Loose Associations, No Flight of Ideas Thought Content: No Suicidal Ideation, No Homicidal Ideation, No Delusions, No Auditory Halllucinations, No Visual Hallucinations, No Thought Broadcasting, No Ideas of Reference, No Obsessions, No Compulsions, No Other Sensorium: Clear Cognition: Alert & Oriented-Person, Alert & Oriented-Place, Alert & Oriented- Time, Bwjft-Qnzcqrxf-Tfaekiqcx Memory: Immediate (deficits exist), Recent, Remote; No Other Intelligence: Average (historically) Insight Judgment: Poor (limited, due to cognitive limitations. and high prob ability of relapse. ) [facility] Assessment and Plan Raff-ac-Kvvw Encounter Date: Sep 18, 2018 Sdqe-lu-Jnna Encounter Time: 10:00 [facility] Plan: Necessary Precautions, Individual/Group Therapy, Admin/Titrate Meds, Educate Patient Tobacco Medications: Started Multpiple Antipsychotics Used: No Problems: (1) Major neurocognitive disorder Optional Permanent Comment: secondary to repeated head injuries and likely alcohol related fci deficits Last Edited By: Ganga Mohan on Sep 12, 2018 12:01 Status: Chronic (2) Alcohol use disorder, severe, dependence Status: Chronic Condition 1. continue same medications. 2. ASI tomorrow. 3. await [address] direction. GANGA MOHAN MD Sep 18, 2018 10:33
[2018-09-18] MEDS: QUEtiapine FUM 25 MG TAB PO SCH (21:22)
[2018-09-19] MEDS: QUEtiapine FUM 25 MG TAB PO PRN (00:36)
[2018-09-19 01:30] VITALS: BP 90/67
[2018-09-19] MEDS: THIAMINE HCL 100 MG TAB PO SCH (08:16)
[2018-09-19] MEDS: FOLIC ACID 1 MG TAB PO SCH (08:16)
--- NOTE | 2018-09-19 09:37 | BHS Progress Note ---
[facility] - Subjective Progress Notes Subjective Patient remains tolerant overall of time on the unit today. Medically and mentally cleared for discharge. Awaiting court direction, as he will have assessment from drug court today. Will increase seroquel tonight due to poor sleep on current dose. Appetite good. Patient remains at a very high risk of relapse. Suicidal Ideation: None Homicidal Ideation: None [facility] - Objective Physical Exam Vital Signs Vital Signs Date Time Temp Pulse Resp B/P (MAP) Pulse Ox O2 Delivery O2 Flow Rate FiO2 09/19/18 01:30 97.8 112 90/67 (75) 93 Room Air 09/18/18 05:45 16 Muscle Strength and Tone: WNL Gait and Station: Steady [facility] Medications Reviewed: Side Effects, Benefits of Medication, Risks Allergies Reviewed: Yes Mental Status Exam General Appearance: Casual, Well Groomed, Good Eye Contact, Cooperative, Polite, Good Interaction; No Tearful, No Psychomotor Agitation, No Psychomotor Retardation Speech: Clear, Spontaneous, Normal Rate, Normal Rhythm, Normal Volume, Normal Tone; No Slurred, No Garbled Mood: Euthymic (irratable.), Other (irritable) Affect: Full and Appropriate, Calm; No Tearful, No Anxious, No Agitated Thought Process: Organized, Logical, Goal Directed; No Loose Associations, No Flight of Ideas Thought Content: No Suicidal Ideation, No Homicidal Ideation, No Delusions, No Auditory Halllucinations, No Visual Hallucinations, No Thought Broadcasting, No Ideas of Reference, No Obsessions, No Compulsions, No Other Sensorium: Clear Cognition: Alert & Oriented-Person, Alert & Oriented-Place, Alert & Oriented- Time, Uxgmo-Zmfptcmt-Szrzbbzxf Memory: Immediate (deficits exist), Recent, Remote; No Other Intelligence: Average (historically) Insight Judgment: Poor (limited, due to cognitive limitations. and high probability of relapse. 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 await court direction concerning discharge. 2. increase seroquel to 75mg PO QHS. GANGA MOHAN MD Sep 19, 2018 09:37
[2018-09-19] MEDS: NICOTINE POLACRILEX 2 MG GUM PO PRN (16:26)
[2018-09-19] MEDS: QUEtiapine FUM 25 MG TAB PO SCH (20:19)
[2018-09-20] MEDS: THIAMINE HCL 100 MG TAB PO SCH (08:13)
[2018-09-20] MEDS: FOLIC ACID 1 MG TAB PO SCH (08:13)
--- NOTE | 2018-09-20 09:58 | BHS Progress Note ---
[facility] - Subjective Progress Notes Subjective Patient continues to be overall cooperative on the unit, sleep adequate, appetite good, Mood irritated at times, but generally good spirits. Awaiting court order concerning abstinence compliance upon discharge, cognition improved, ambulation improved. Interacting appropriately with family on the phone, during treatment team meeting. No medication changes today. Suicidal Ideation: None Homicidal Ideation: None [facility] - Objective Physical Exam Vital Signs Vital Signs Date Time Temp Pulse Resp B/P (MAP) Pulse Ox O2 Delivery O2 Flow Rate FiO2 09/19/18 01:30 97.8 112 90/67 (75) 93 Room Air 09/18/18 05:45 16 Muscle Strength and Tone: WNL Gait and Station: Steady [facility] Medications Reviewed: Side Effects, Benefits of Medication, Risks Allergies Reviewed: Yes Mental Status Exam General Appearance: Casual, Well Groomed, Good Eye Contact, Cooperative, Polite, Good Interaction; No Tearful, No Psychomotor Agitation, No Psychomotor Retardation Speech: Clear, Spontaneous, Normal Rate, Normal Rhythm, Normal Volume, Normal Tone; No Slurred, No Garbled Mood: Euthymic (irratable.), Other (irritable) Affect: Full and Appropriate, Calm; No Tearful, No Anxious, No Agitated Thought Process: Organized, Logical, Goal Directed; No Loose Associations, No Flight of Ideas Thought Content: No Suicidal Ideation, No Homicidal Ideation, No Delusions, No Auditory Halllucinations, No Visual Hallucinations, No Thought Broadcasting, No Ideas of Reference, No Obsessions, No Compulsions, No Other Sensorium: Clear Cognition: Alert & Oriented-Person, Alert & Oriented-Place, Alert & Oriented- Time, Njgjf-Fonhfouf-Hqpurssuq Memory: Immediate (deficits exist), Recent, Remote; No Other Intelligence: Average (historically) Insight Judgment: Poor (limited, due to cognitive limitations. and high probability of relapse. ) [facility] Assessment and Plan Lqwv-[id number] Encounter Date: Sep 20, 2018 Evpl-si-Oaez Encounter Time: 09:40 [facility] Plan: Necessary Precautions, Individual/Group Therapy, Admin/Titrate Meds, Educate Patient Tobacco Medications: Started Multpiple Antipsychotics Used: No Problems: (1) Major neurocognitive disorder Optional Permanent Comment: secondary to repeated head injuries and likely alcohol related rn long term care deficits Last Edited By: Ganga Mohan on Sep 12, 2018 12:01 Status: Chronic (2) Alcohol use disorder, severe, dependence Status: Chronic Condition 1. continue treatment. 2. no medication changes. 3. await court direction concerning time of discharge. GANGA MOAHN MD Sep 20, 2018 09:58
[2018-09-20 11:05] VITALS: BP 113/72
--- NOTE | 2018-09-20 19:50 | BHS - Psychiatric Evaluation ---
Title 25 Evaluation Hearing Report: 110 Date of Report: Sep 20, 2018 Examiner: Jayda Rincon M.S., Rodrigo Patient Detained By: Therapist (Anny Arrington. Herbert, Rodrigo, L.A.T.) 24hr Mental Health Eval By: Tina. Jose Luis Rincon M.S., L.P.C. Date Patient Detained: Sep 01, 2018 Time Patient Detained: 16:30 Date Half-Way Expires: Sep 21, 2018 Time Half-Way Expires: 16:30 Legal Status: Police Hold: No Legal Status: Residence: County Resident, State Resident Referral Source: Professional: Mental Health and Licensed Addiction Therapist, Anny Arrington Assessment Data Provided By: Patient, Family Member(s) (Mother and step parent attended 109 hearing), Other Source ([facility] and [facility] clinical professionals) Chief Complaint: Patient was brought to the hospital by an unknown person. His neighbors and mother were looking for him because they are aware he recently had a DUI and struggles with severe Alcohol Use Disorder and related seizures. While being treated at [facility] it became apparent his cognitive dysfunction is profound and he is unable to make plans to take care of himself. He has poor orientation to time and situation. For the last two days he has believed he has been at [facility] since May or June. In reality, he was hospitalized in late July and then again in early August. He says he wants to go to residential treatment for a substance use disorder but he does not seem to be able to have logical planning to help him to get to residential treatment. Currently his cognitive impairment keeps him from even writing a letter to a treatment facility to express motivation for treatment. Without a letter like this, he is unlikely to be accepted to treatment. Also patient has refused to sign a release to [facility]. HPI/ROS: Patient was detained by therapist Anny Arrington who assessed and noted patient's cognitive impairment. Patient has illogical ideas about how he can have his bag packed and go to treatment, not having applied to any treatment centers. Patient's most recent DUI is an indication that he cannot safely transport himself anywhere and the traumatic brain injuries related to alcoholic seizures put patient at further inability to care for himself and likely decompensate. 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 He is not able to care for himself. He is bewildered about how he arrived at the hospital this last time. His mother states that he has not paid rent, rendering him homeless. He is poorly oriented to time, believing he has been hospitalized since May or June. In reality, he was hospitalized in late July and then again in early August. He may not be able to take care of paying his rent on monthly timetables because he has poor orientation to time. His recent DUI is indication that he has impaired judgement. Also the seizures he experiences if he tries to stop drinking are life threatening. Patient was directed to go to outpatient treatment after a stay at [facility] two years ago when he left Against Medical Advice (AMA). He says he follows up occasionally and sporadically, and does not remember the date of a next appointment with an outpatient provider or when his last appointment occurred. There is every indication that patient is not able to utilize outpatient treatment at the level he needs to support him in any sustained recovery. Recommendations of [facility] Team: The patient "evidences behavior manifested by recent acts or omissions that, due to mental illness, the patient is unable to satisfy basic needs for nourishment, essential medical care, prison, or safety so that a substantial probability exists that , serious physical injury, serious physical debilitation, serious mental debilitation, destabilization from lack of or refusal to take prescribed psychotropic medications for a diagnosed condition or serious physical disease will imminently ensue, unless the individual receives prompt and adequate treatment for this mental illness" as evidenced by: Patient's recent seizures have resulted in traumatic brain injuries. As a result he is unable to develop a plan to provide for his basic needs. Likely decompensation upon release is related to patient being unable to think logically and be fully oriented to his needs and how to care for himself. Although a medicine like Antibuse could serve patient as an antagonist for drinking impulses, patient's liver damage from drinking is too progressed to be able to safely use this medicine to support him in outpatient care. 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 He believed he was transported to the hospital by [facility], but he was not. Patient acknowledges he has memory loss that is profound as well as difficulty planning for even his most basic needs. Patient believes he could maintain sobriety. Patient orientation to his prognosis and problem severity is poor. Reliability of Collateral Info Patient's mother reports deep concern for patient's safety and well being. Says, "We agree with residential (related to the treatment recommendation). At 43 years of age, patient is largely reliant on his mother, especially financially. Although patient has advanced job skills, he has found himself unemployed for several years related to extensive drinking. Current Dangerous Risk Assess: Current Suicide Ideation (Denies), Self- Injurious Behaviors (Drinks to black-out drunk as well as has alcohol related seizures and head trauma within those seizures.) Current Risk Summary: Risk to patient is severe. He is not able to care for himself. He is bewildered about how he arrived at the hospital this last time. He is poorly oriented to time, believing he has been hospitalized since May or June. In reality, he was hospitalized in late July and then again in early August. His recent DUI is indication that he has had impaired judgement about his own safety and the safety of others. Also the seizures he experiences if he tries to stop drinking on his own are life threatening. Past Dangerous Risk Assess: Self-Injurious Behaviors (required a safe detox in 2016 because of seizures related to trying to stop drinking on his own. At that time he was unable to stop drinking on his own. His alcohol related impairment seems to have worsened since that time.) BHS - Exam Physical Exam Vital Signs Vital Signs 09/18/18 09/20/18 05:45 11:05 Temp 98.3 Pulse 98 Resp 16 B/P (MAP) 113/72 (86) Pulse Ox 95 O2 Delivery Room Air Mental Status Exam General Appearance: Casual, Well Groomed, Good Eye Contact, Cooperative, Polite, Good Interaction; No Tearful, No Psychomotor Agitation, No Psychomotor Retardation Speech: Clear, Spontaneous, Normal Rate, Normal Rhythm, Normal Volume, Normal Tone; No Slurred, No Garbled Mood: Euthymic (Becoming more euthymic as he stays on the unit and is unable to drink alcohol.), Other (Irritable at times) Affect: Full and Appropriate, Calm; No Tearful, No Anxious, No Agitated Thought Process: Organized, Logical, Goal Directed; No Loose Associations, No Flight of Ideas Thought Content: No Suicidal Ideation, No Homicidal Ideation, No Delusions, No Auditory Halllucinations, No Visual Hallucinations, No Thought Broadcasting, No Ideas of Reference, No Obsessions, No Compulsions, No Other Sensorium: Clear Cognition: Alert & Oriented-Person, Alert & Oriented-Place, Alert & Oriented-T jeannette, Ljdos-Yzrocdms-Jhrnvnssx Memory: Immediate (deficits exist), Recent, Remote; No Other Intelligence: Average (Historically), Above Average (Historically) Insight Judgment: Poor (Limited, due to cognitive limitations. and high probability of relapse.) Care & Behavior on Unit Treatment Team Participation: Patient has been participating appropriately in treatment. Patient has refused to allow his information to be released to residential rehabilitation centers. Title 25 History Psychiatric History: Notable that when patient is being interviewed about the doctor related to his basic demographics, he repeatedly tells her to "Guess," or refuses to answer. It seems possible to this observer that patient is defensive about being unable to answer even very basic information about himself. He reports he saw Laney Nicole about a month ago for "Bipolar Mood Disorder." He also says he went to [facility] [place] 2 or three years ago. His mother said he was drinking severely after that residential treatment. She said she thought he had been drinking as soon as 1 week after discharge. Patient was hospitalized in September of 2015 for a voluntary detox from alcohol but left against medical advice. He says he began drinking at 4-3 years of age. He states he does not know how to envision a life sober. Family Psychiatric Hx: Does not describe any other family psychiatric problems. Social History: The patient was born in [place], [place], to parents who were at the time. The family moved to [place], and he graduated from [employer]. He attended college in [place] for one year and then came to the [employer] where he earned a Bachelor of Science in Chemical Engineering. He has worked in the [employer] field and at a [employer] in [place]. At age 31, he got an [employer] on line, and he worked for [employer] in [place] for two years. He has been living back in [place] and unemployed since the age of 39. He lives alone in an apartment. He reports he has a reasonably close relationship with his mother, who lives in [place], [place]." He says he recently broke up with a woman who lives nearby him and he says he made the mistake of getting into this relationship before he was able to establish some sobriety and good self-care. Previous Detentions: No noted previous detentions. Prior Hospitalizations: Required a safe detox in 2016, left against medical advice. Hospitalized from August 08 to early August for an alcohol related seizure and subsequent traumatic brain injury. Patient says he is aware of about 7 alcohol related seizures. He also acknowledges cognitive decline and cognitive damage related to profound alcoholism. Drug & Alcohol Use: Patient says he used marijuana very briefly in high school and "did not like it." Says he used cocaine "for awhile" and stopped on his own. Patient says his al cohol use disorder has prevented him from working for the past 4 years. He does not have disability support. Age of Onset/Duration: Reports he began drinking at age 2 or 3, "first sip," patient says. Does not answer as to when his drinking became profound and detrimental. Current Living Situation: Living in an apartment. Neighbors became concerned about patient because they were aware of patients continuous and excessive drinking and called a welfare check. His mother asked for him to be entered as a missing person. His mother indicates that because he has not paid rent he could be considered homeless. Employment Issues: Patient reports he has not been employed for the last 4 years. Legal Concerns: Recent DUI, has a Municipal [address] hearing on September 28, 2018. Patient Strengths: Patient seems to enjoy connecting with others, and has some fond reminiscing about times when he was able to work. It is clear that at one time patient's intellect was exceptional. Relevant Medications: JAYDA Naranjo PHOTOGRAPHER'S MODEL Sep 20, 2018 19:50
[2018-09-20] MEDS: QUEtiapine FUM 25 MG TAB PO SCH (20:47)
[2018-09-20] MEDS: NICOTINE POLACRILEX 2 MG GUM PO PRN (22:26)
[2018-09-21] MEDS: FOLIC ACID 1 MG TAB PO SCH (08:49)
[2018-09-21] MEDS: THIAMINE HCL 100 MG TAB PO SCH (08:49)
--- NOTE | 2018-09-21 09:34 | BHS Progress Note ---
BHS - Subjective Progress Notes Subjective Patient remains irritated but cooperative on the unit, patient reports he dose not want to go to rehab, and continues to consider his lengthy hospital stay on the medical floor as well as on this unit as "rehab". Patient suffers from alcohol use disorder severe, and additionally Major neurocognitive disorder likely related to assisted heavy alcohol use, combined with history of head injury. At this time the patient's neurocognitive disorder has recovered to the point it is to be considered mild. The patient unfortunately will be limited in his ability to abstain from alcohol, and if relapse occurs he will quickly decompensate to a state of physical and cognitive impairment that existed when he first was admitted to the medical floor. Patient states that during his evaluation for drug court, he was deemed "too good" for drug court. Patient sleeping well, and eating well on the unit. No other concerns. Will have hearing today. Suicidal Ideation: None Homicidal Ideation: None BHS - Objective Physical Exam Vital Signs Vital Signs Date Time Temp Pulse Resp B/P (MAP) Pulse Ox O2 Delivery O2 Flow Rate FiO2 09/20/18 11:05 98.3 98 113/72 (86) 95 Room Air 09/18/18 05:45 16 Muscle Strength and Tone: WNL Gait and Station: Steady [facility] Medications Reviewed: Side Effects, Benefits of Medication, Risks Allergies Reviewed: Yes Mental Status Exam General Appearance: Casual, Well Groomed, Good Eye Contact, Cooperative, Polite, Good Interaction; No Tearful, No Psychomotor Agitation, No Psychomotor Retardation Speech: Clear, Spontaneous, Normal Rate, Normal Rhythm, Normal Volume, Normal Tone; No Slurred, No Garbled Mood: Euthymic (Becoming more euthymic as he stays on the unit and is unable to drink alcohol.), Other (Irritable at times) Affect: Full and Appropriate, Calm; No Tearful, No Anxious, No Agitated Thought Process: Organized, Logical, Goal Directed; No Loose Associations, No Flight of Ideas Thought Content: No Suicidal Ideation, No Homicidal Ideation, No Delusions, No Auditory Halllucinations, No Visual Hallucinations, No Thought Broadcasting, No Ideas of Reference, No Obsessions, No Compulsions, No Other Sensorium: Clear Cognition: Alert & Oriented-Person, Alert & Oriented-Place, Alert & Oriented- Time, Uynlo-Sjbcmsxr-Wbjrlholl Memory: Immediate (deficits exist), Recent, Remote; No Other Intelligence: Average (Historically) Insight Judgment: Poor (Limited, due to cognitive limitations. 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 hearing today. 2. will recommend patient enter alcohol rehab program, as risk for relapse is extremely high, and if patient relapses it is certain he will quickly and severely decompensate both medically and cognitively, and would no longer be able to care for self. GANGA MOHAN MD Sep 21, 2018 09:34
[2018-09-21] MEDS: NICOTINE POLACRILEX 2 MG GUM PO PRN (11:23)
[2018-09-21] MEDS ORDERED: FOLI-68 PO (11:56)
[2018-09-21] MEDS ORDERED: QUET25TA30 PO (11:56)
[2018-09-21] MEDS ORDERED: THIA100T20 PO (11:56)
[2018-09-21] MEDS ORDERED: NICO-306 BC (11:57)
[2018-09-21] MEDS ORDERED: IBUP600T22 PO (11:57)
--- NOTE | 2018-09-23 15:30 | SCHAAF DISCHARGE ---
DATE OF ADMISSION: September 01, 2018 DATE OF DISCHARGE: September 21, 2018 ATTENDING PHYSICIAN Jamal Awan MD Patient was seen on 21 September 2018 at approximately 1100 hours for note concerning this dictation. FINAL DIAGNOSES 1. Alcohol use disorder, severe. 2. Alcohol withdrawal, considered complete. 3. Major neurocognitive impairment, currently rated as mild. 4. Social stressors related to alcohol use. 5. Unemployment. 6. Supportive relationship with parents. REASON FOR ADMISSION This is a 43-year-old male who suffers from extreme alcohol use disorder. Patient notably initially admitted to the medical floor following seizures in intermediate. Patient was then eventually transferred to extended care facility where he continued to work on ambulation. Patient's ambulation improved to the point patient could be transferred to [facility] Unit, where he initially arrived in state of confusion with, again, poor ambulation and overall generalized weakness. Patient notably having a hearing scheduled for September 28, 2018, concerning DUI. Effort was made to work with the court system to ensure patient's sobriety. Patient's cognition remained limited throughout his stay, although made slow improvement throughout his stay. Patient was under an emergency detainment and a 10-day extension. Eventually time ran out. Court worked with patient. Patient working with his calender operator to ensure abstinence upon discharge. Patient was seen by drug court personnel as well, who deemed that the patient would require a higher level of care for his treatment of alcohol use and, therefore, recommended residential treatment. Patient at the time of discharge did agree to go to residential treatment, although his intentions of sobriety seemed limited to a point. PHYSICAL EXAMINATION Please see medical records. Physical exam at the time of discharge from the [facility] Unit was notable for: GENERAL: Some continued generalized weakness, although much improvement had been made. Otherwise, unremarkable. VITAL SIGNS: Vital signs at the time of admission to [facility] showed temperature 98.1, pulse 70, respiratory rate 16, blood pressure 133/78, and pulse oximetry 97% on room air. At time of discharge from [facility], temperature 98.3, pulse 98, respiratory rate 16, blood pressure 113/72, and pulse oximetry 95% on room air. LABORATORY DATA On 09/13/2018, CBC continued to improve overall, showing hemoglobin and hematocrit still low at 13.7 and 40.5. MCV and MCH continued to fall overall at 100.2 and 33.9 respectively. Platelet count noted to be 228. Chemistry panel on 09/13/18 notable for total bilirubin now in normal range at 1.3 with an AST elevated at 66, ALT 48. For other laboratory data, please see electronic record. MENTAL STATUS EXAMINATION GENERAL APPEARANCE, BEHAVIOR, AND ATTITUDE: At time of discharge, this is an overall cooperative 43-year-old male. Some cognitive deficits remain apparent. No psychomotor agitation or retardation. No periods of tearfulness. Interacting well with his parents, treatment team staff, his rn paralegal. SPEECH: Largely within normal limits. Considered baseline at this point. MOOD: Described as okay. AFFECT: Full and mood congruent. THOUGHT PROCESSES: Goal directed, logical. No loose associations or flight of ideas. THOUGHT CONTENT: Free of auditory or visual hallucinations, ideas of reference, thought broadcastings, delusions, obsessions, compulsions. Patient adamantly denying suicidal or homicidal ideation. SENSORIUM: Clear. COGNITION: Alert and oriented to person, place, time, and situation. MEMORY: Immediate memory showed some deficits, likely permanent, caused by a combination of TBI and long-term alcohol use. INTELLIGENCE: Historically average based on remote data. INSIGHT AND JUDGMENT: Considered grossly intact in the absence of alcohol use. RESULTS OF TESTING Imaging: See electronic record. Laboratory data: See above. CONSULTATIONS None. TREATMENT Patient received medications, participated in individual and group therapy. HOSPITAL COURSE Patient's cognition and ambulation continued to improve upon transfer to the Behavioral Health Unit. Much education was given to this patient concerning the negative effects of alcohol on his life and the necessity of this patient's abstinence from alcohol upon discharge. Patient was mildly receptive. By time of discharge, did not still recognize the full negative impact of alcohol on his life, and cognitive impairment may limit this. CONDITION OF PATIENT ON DISCHARGE Stable. Considered a minimal risk to himself or others in the absence of alcohol use. DISPOSITION Patient discharged to home. He would follow up with outpatient treatment. It was recommended that patient would go to residential treatment. He would abstain from alcohol. He was given the crisis line if symptoms returned. AA and obtain a sponsor are also a necessity when patient is able. DISCHARGE MEDICATIONS At time of discharge, outpatient medications would include: 1. Folic acid 1 mg daily. 2. Seroquel 25 to 75 mg p.o. at bedtime. 3. Nicotine replacement over the counter. 4. Motrin as needed for pain. 5. Thiamine 100 mg daily. Risks, benefits, and alternatives of above discharge plan were discussed. Informed consent was given to proceed with above discharge plan by this patient, legal system, and patient's family members. GORDY
== END 2018-09-21 16:14 | disposition home or self-care (01) | DRG 897 ==
LOC: UNDOADMIN 17:13 → BHS 17:13
PROVIDERS: ADMIT Psychiatry & Neurology Psychiatry; ATTEND Psychiatry & Neurology Psychiatry
DX: F10.27 Alcohol dependence with alcohol-induced persisting dementia (principal); G31.84 Mild cognitive impairment of uncertain or unknown etiology; F31.9 Bipolar disorder, unspecified; Z56.0 Unemployment, unspecified; Z87.820 Personal history of traumatic brain injury; Z72.89 Other problems related to lifestyle; Z73.89 Other problems related to life management difficulty
CPT/HCPCS: 36415; 82040; 82140; 82247; 82310; 82374; 82435; 82565; 82947; 83735; 84075; 84132; 84155; 84295; 84450; 84460; 84520; 85025